=== PATIENT | female | born 1995 | race Hispanic/Latino ===

== ENCOUNTER 2017-04-12 18:20 | Emergency (ER) | payer SELFPAY, OTHER ==
[2017-04-12] MEDS ORDERED: Ibuprofen 800 MG TAB ONE (19:01)
== END 2017-04-12 19:30 | disposition home or self-care (01) ==
LOC: ERS 18:20
DX: J11.1 Influenza due to unidentified influenza virus with other respiratory manifestations (principal); K21.9 Gastro-esophageal reflux disease without esophagitis
CPT/HCPCS: 99284

== ENCOUNTER 2017-05-23 18:44 | Emergency (ER) | payer SELFPAY ==
[2017-05-23] MEDS ORDERED: Ibuprofen 200 MG TAB ONE (20:02)
[2017-05-23] MEDS ORDERED: Bicillin LA 1.2 MILLION UNITS/2 ML SYRINGE ONE (20:02)
[2017-05-23] MEDS ORDERED: Dexamethasone 4 mg/ml Vial ONE (20:02)
== END 2017-05-23 20:22 | disposition home or self-care (01) ==
LOC: ERS 18:44
DX: J02.0 Streptococcal pharyngitis (principal); K21.9 Gastro-esophageal reflux disease without esophagitis
CPT/HCPCS: 87804; 96372; J0561; J1100

== ENCOUNTER 2018-06-13 10:33 | Emergency (ER) | payer SELFPAY ==
[2018-06-13 11:05] LABS: #Eosinphils 0.2 thou/uL (0.0-0.7); #Lymphocytes 2.4 thou/uL (1.20-3.40); #Monocytes 0.8 thou/uL (0.11-0.59); %Basophils 0.5 % (0.0-1.0); %Eosinophils 2.3 % (0.0-10.0); %Lymphocytes 25.6 % (21.0-51.0); %Monocytes 8.4 % (0.0-10.0); %Neutrophils 63.3 % (42.0-75.0); Hemoglobin 13.3 g/dL (12.0-16.0); Mean Corpuscular HGB CONC 32.1 g/dL (32.0-36.0); Mean Corpuscular Hemoglobin 29.1 pg (27.0-31.0); Mean Corpuscular Volume 90.6 fL (78.0-98.0); Mean Platelet Volume 8.9 fL (7.4-10.4); Platelet Count 209 thou/uL (130-400); RBC Distribution Width 12.5 % (11.5-14.5); Red Blood Cell (RBC) Count 4.55 mill/uL (4.20-5.40); White Blood Cell (WBC) Count 9.5 thou/uL (4.8-10.8)
[2018-06-13 11:34] LABS: Bilirubin Negative (Negative); Blood, Urine Negative (Negative); Clarity CLEAR (Clear); Glucose, Urine (Dipstick) >=1000 mg/dL (Negative); Leukocyte Negative (Negative); Nitrite Negative (Negative); Protein, Urine (Dipstick) Negative (Neg-Trace); Specific Gravity, Urine 1.032 (1.002-1.036); Urobilinogen 0.2 mg/dL (0.2-1.0); pH, Urine 6.5 (5.0-9.0)
[2018-06-13 11:35] LABS: ALT (SGPT) 10 U/L (8-55); AST (SGOT) 10 U/L (5-34); Albumin 4.2 g/dL (3.5-5.0); Alkaline Phosphatase 109 U/L (40-150); Anion Gap 11 mmol/L (10-20); BUN (Urea Nitrogen) 10 mg/dL (7.0-18.7); Bilirubin, Total 0.2 mg/dL (0.2-1.2); Calc. Creatinine Clearance 0 mL/min (70-130); Calcium 9.5 mg/dL (7.8-10.44); Carbon Dioxide 22 mmol/L (22-29); Chloride 106 mmol/L (98-107); Estimated GFR-MDRD Greater than 90; Globulin 3.4 g/dL (2.4-3.5); Glucose 208 mg/dL (70-105); Potassium 3.9 mmol/L (3.5-5.1); Protein, Total 7.6 g/dL (6.0-8.3); Sodium 135 mmol/L (136-145)
[2018-06-13 11:36] LABS: Pregnancy Test - Urine (BHCG) Negative (Negative); Pregu Control Background? CLEAR/WHITE (CLR/WHITE); Pregu Control Bar Appear? YES (CONTROL BAR); Specific Gravity 1.032 (1.002-1.036)
== END 2018-06-13 12:55 | disposition home or self-care (01) ==
LOC: ERS 10:33
DX: R10.30 Lower abdominal pain, unspecified (principal); F17.290 Nicotine dependence, other tobacco product, uncomplicated
CPT/HCPCS: 36415; 80053; 81003; 81025; 85025; 99284

== ENCOUNTER 2018-10-02 23:53 | Emergency (ER) | payer SELFPAY | END 2018-10-03 00:51 | disposition home or self-care (01) | LOC: ERS 23:53 | DX: B37.3 Candidiasis of vulva and vagina (principal); F41.9 Anxiety disorder, unspecified; E11.9 Type 2 diabetes mellitus without complications; F17.210 Nicotine dependence, cigarettes, uncomplicated; Z79.84 Long term (current) use of oral hypoglycemic drugs | CPT/HCPCS: 99282 ==

== ENCOUNTER 2018-10-06 02:57 | Inpatient (IN) | payer SELFPAY ==
[2018-10-06] MEDS ORDERED: Lidocaine 1% w/Epinephrine 1:100K 20 ML VIAL ONE (03:31)
[2018-10-06] MEDS ORDERED: HYDROcodone/Acetaminophen 7.5/325 mg Tablet ONE (03:33)
[2018-10-06 03:38] LABS: #Basophils 0.1 thou/uL (0.0-0.2); #Eosinphils 0.2 thou/uL (0.0-0.7); #Lymphocytes 1.6 thou/uL (1.20-3.40); #Neutrophils 8.6 thou/uL (1.40-6.50); %Basophils 0.5 % (0.0-1.0); %Eosinophils 1.6 % (0.0-10.0); %Monocytes 8.5 % (0.0-10.0); %Neutrophils 75.5 % (42.0-75.0); Hemoglobin 13.9 g/dL (12.0-16.0); Mean Corpuscular HGB CONC 32.9 g/dL (32.0-36.0); Mean Corpuscular Hemoglobin 30.8 pg (27.0-31.0); Mean Corpuscular Volume 93.4 fL (78.0-98.0); Mean Platelet Volume 10.2 fL (7.4-10.4); Platelet Count 173 thou/uL (130-400); RBC Distribution Width 12.6 % (11.5-14.5); Red Blood Cell (RBC) Count 4.52 mill/uL (4.20-5.40); White Blood Cell (WBC) Count 11.4 thou/uL (4.8-10.8)
[2018-10-06 04:01] LABS: ALT (SGPT) 9 U/L (8-55); AST (SGOT) 6 U/L (5-34); Albumin 4.2 g/dL (3.5-5.0); Alkaline Phosphatase 141 U/L (40-150); Anion Gap 22 mmol/L (10-20); BUN (Urea Nitrogen) 7 mg/dL (7.0-18.7); Bilirubin, Total 0.4 mg/dL (0.2-1.2); Calc. Creatinine Clearance 0 mL/min (70-130); Calcium 9.7 mg/dL (7.8-10.44); Carbon Dioxide 14 mmol/L (22-29); Chloride 98 mmol/L (98-107); Estimated GFR-MDRD 56; Globulin 3.2 g/dL (2.4-3.5); Potassium 4.1 mmol/L (3.5-5.1); Protein, Total 7.4 g/dL (6.0-8.3); Sodium 130 mmol/L (136-145)
[2018-10-06 04:04] LABS: Glucose 604 mg/dL (70-105)
[2018-10-06] MEDS ORDERED: Insulin Regular 300 UNITS/3 ML VIAL ONE (04:22)
[2018-10-06 04:42] LABS: Bilirubin Negative (Negative); Blood, Urine Negative (Negative); Clarity CLEAR (Clear); Glucose, Urine (Dipstick) >=1000 mg/dL (Negative); Leukocyte Negative (Negative); Nitrite Negative (Negative); Protein, Urine (Dipstick) Negative (Neg-Trace); Specific Gravity, Urine 1.038 (1.002-1.036); Urobilinogen 0.2 mg/dL (0.2-1.0)
[2018-10-06] MEDS ORDERED: Potassium Chloride 20 MEQ TAB ONE (04:50)
[2018-10-06] MEDS ORDERED: Clindamycin/D5W 600 mg/50 ml Premix Bag ONE (04:51)
[2018-10-06 04:58] LABS: RBC/HPF 0-3 HPF (0-3); WBC/HPF 0-3 HPF (0-3)
[2018-10-06 04:59] LABS: Bacteria/HPF None Seen HPF (None Seen); Squamous Epithelial None Seen HPF (0-3); Trichomonas/HPF None Seen HPF (None Seen); Yeast-All Forms Rare HPF (None Seen)
[2018-10-06] MEDS ORDERED: Acetaminophen 325 MG/10.15 ML UDCUP PO PRN (05:49)
[2018-10-06] MEDS ORDERED: CCU Electrolyte Replacement 1 EACH IVPB ONE ×2 (05:49→07:37)
[2018-10-06] MEDS ORDERED: Bisacodyl 5 MG TAB PO PRN (05:49)
[2018-10-06] MEDS ORDERED: PHOS-NAK 1 PKT PACK PO PRN ×4 (06:01→08:16)
[2018-10-06] MEDS ORDERED: Potassium Chloride 40 MEQ in Sodium Chloride 0.9% 250 ML 250 ML IVPB PRN ×2 (06:01→08:16)
[2018-10-06] MEDS ORDERED: Potassium Phosphate 15 MMOL in Sodium Chloride 0.9% 250 ML 250 ML IV PRN ×2 (06:01→08:16)
[2018-10-06] MEDS ORDERED: Magnesium Oxide 400 MG TAB PO PRN ×4 (06:01→08:16)
[2018-10-06] MEDS ORDERED: Magnesium 2 GM/50 ML 2 GM in Premix Bag 1 BAG IVPB PRN ×2 (06:01→08:16)
[2018-10-06] MEDS ORDERED: Potassium Phosphate 12 MMOL in Sodium Chloride 0.9% 250 ML 250 ML IV PRN ×2 (06:01→08:16)
[2018-10-06] MEDS ORDERED: Potassium Chloride 40 MEQ in Premix Bag 1 BAG IVPB PRN ×2 (06:01→08:16)
[2018-10-06] MEDS ORDERED: Potassium Chloride 20 MEQ TAB PO PRN ×2 (06:01→08:16)
[2018-10-06] MEDS ORDERED: Potassium Phosphate 9 MMOL in Sodium Chloride 0.9% 100 ML IVPB PRN ×2 (06:01→08:16)
[2018-10-06] MEDS ORDERED: CCU ELECTROLYTE REPLACEMENT PROTOCOL FS PRN ×2 (06:01→08:16)
[2018-10-06] MEDS ORDERED: Insulin Regular 100 units/100 ml in NS IVPB SCH (06:15)
--- NOTE | 2018-10-06 06:43 | HP ---
CHIEF COMPLAINT: Left buttock pain. HISTORY OF PRESENT ILLNESS: The patient is a very pleasant 23-year-old female who presents to the hospital with complaints of left buttock pain x2 days. The patient states that she was recently seen in the ER on Tuesday and was found to have a small abscess around her left buttock area. However, at that time, it was not drainable and the patient was sent home with only Diflucan for her vaginal Aria. The patient stated that as the days progressed, the patient's pain to her left buttock has gotten worse to the point that she had significant amount of pain today which made her come into the ER. The patient states that she was recently diagnosed with diabetes in July and has been on metformin and has been taking her medications. She does not check her blood sugars at home. According to her, she has lost a significant amount of weight and also she is very conscious about her diet given her recent diagnosis of diabetes. The patient denies any fevers or chills at home. PAST MEDICAL HISTORY: History of new onset diabetes. She also has psoriasis. PAST SURGICAL HISTORY: She denies. FAMILY HISTORY: History of heart disease, cancers, and stroke. SOCIAL HISTORY: She denies any alcohol use, drug use, or smoking history. She is a full code. Lives alone. REVIEW OF SYSTEMS: All negative except for the ones mentioned above in the HPI. ALLERGIES: SHE HAS NO KNOWN ALLERGIES. MEDICATIONS: She takes metformin. She does not recall the dose. PHYSICAL EXAMINATION: VITAL SIGNS: As of the following; temperature of 98.8, heart rate of 90, blood pressure of 140/60, 98% on room air. GENERAL: She is awake, alert, and oriented x3. Does not appear in distress. HEENT: Normocephalic, atraumatic. No lymphadenopathy noted. Mucous membranes are very dry. Pupils are equal and reactive to light. CV: S1 and S2 present. No murmurs, rubs, or gallops. LUNGS: Clear to auscultation. No rhonchi or wheezes noted. ABDOMEN: Soft, obese. Bowel sounds are present x2. EXTREMITIES: No edema. Pedal pulses are present x2. NEUROVASCULAR: No focal deficits noted. SKIN: She has a small area of abscess on her left butt cheek which underwent drainage and she has does have a little packing inserted. LABORATORY RESULTS: As of the following; WBCs of 11.4, hemoglobin of 13.9, hematocrit of 42.2, platelets of 173. Chemistry; sodium of 130, potassium of 4.1, BUN of 7, creatinine of 121, anion gap of 22, and bicarb of 14. Her glucose was 604. Her beta-hydroxybutyric acid was 5.54. ASSESSMENT AND PLAN: The patient is a very pleasant 23-year-old female who presents to the hospital with complaints of left buttock pain. 1. Diabetic ketoacidosis. The patient has been given 8 units of regular insulin and she will be started on an insulin drip per protocol. She will be transferred into the [facility]. She has got a total of 3 L of normal saline. We will start her on a drip based on the diabetic ketoacidosis protocol. We will also check a hemoglobin A1c on this patient. 2. Buttocks abscess, status post drainage, cultures have been sent. I will start the patient on clindamycin and continue to monitor. 3. Deep vein thrombosis prophylaxis. We will put the patient on subcu heparin. Job ID: [id number]
[2018-10-06] MEDS ORDERED: Dextrose 5 %-0.45 % NaCl 1,000 ML IV PRN (07:37)
[2018-10-06] MEDS ORDERED: D5 1/2 NS w/20 mEq KCL 1,000 ML IV PRN (07:37)
[2018-10-06] MEDS ORDERED: NS 0.9% w/ 20 MEQ KCL 1,000 ML IV PRN (07:37)
[2018-10-06] MEDS ORDERED: Sodium Chloride 0.9% 1,000 ML IV PRN ×4 (07:37)
[2018-10-06] MEDS ORDERED: HUMULIN R 100 UNITS in Sodium Chloride 0.9% 100 ML IVPB SCH (07:45)
[2018-10-06] MEDS: Enoxaparin Sodium 40 MG/0.4 ML SYRINGE SC SCH (08:35)
[2018-10-06] MEDS: Famotidine/PF 20 mg/2ml Vial SLOW IVP SCH ×2 (08:36→21:45)
[2018-10-06] MEDS: NS 0.9% w/ 20 MEQ KCL 1,000 ML IV PRN ×2 (08:36→10:47)
[2018-10-06 09:53] LABS: Anion Gap 15 mmol/L (10-20); BUN (Urea Nitrogen) 5 mg/dL (7.0-18.7); Calc. Creatinine Clearance 158 mL/min (70-130); Calcium 8.2 mg/dL (7.8-10.44); Carbon Dioxide 17 mmol/L (22-29); Chloride 108 mmol/L (98-107); Estimated GFR-MDRD Greater than 90; Glucose 231 mg/dL (70-105); Potassium 3.8 mmol/L (3.5-5.1); Sodium 136 mmol/L (136-145)
--- NOTE | 2018-10-06 10:21 | CON ---
DATE OF CONSULTATION: HISTORY OF PRESENT ILLNESS: A 23-year-old obese female, presented with swelling in the left buttock area, had an abscess, two weeks, recently diagnosed diabetes. Her sugars were markedly elevated. She does not smoke or drink. 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. Denies any nausea or vomiting. PAST MEDICAL HISTORY: Diabetes, psoriasis. PREVIOUS SURGERIES: None. CHRONIC MEDICATION: Metformin 500 mg two a day. ALLERGIES: NONE. SOCIAL HISTORY: Unremarkable. FAMILY HISTORY: Unremarkable. REVIEW OF SYSTEMS: Ten-point negative. PHYSICAL EXAMINATION: GENERAL: Awake, alert, and responsive. VITAL SIGNS: Blood pressure is 92/67, temperature 97, pulse 81, saturations are 98% on room, respirations 20. CHEST: No wheezing or crackles. CARDIAC: Normal S1 and S2. No gallops. ABDOMEN: No masses. LABORATORY DATA: White count 11,000. Lytes are normal. Glucose is elevated. Her urine is unremarkable. H and H are 13 and 42, platelet count 173. Sodium was 130, creatinine 1.2, bicarbonate 14, elevated anion gap 22. IMPRESSION: Diabetic ketoacidosis, buttock abscess. She was started on clindamycin IV fluids, insulin drip. She got serial lab ordered. At this stage, nothing additional to offer. She probably needs to be started on long acting insulin. We will follow on MICU. Job ID: [id number]
[2018-10-06] MEDS ORDERED: Dextrose 50% Abboject 50 ML SYRINGE IVP PRN (12:18)
[2018-10-06] MEDS ORDERED: Dextrose 5% in Water 1,000 ML IV PRN (12:18)
[2018-10-06 12:25] LABS: Anion Gap 14 mmol/L (10-20); BUN (Urea Nitrogen) 4 mg/dL (7.0-18.7); Calc. Creatinine Clearance 194 mL/min (70-130); Calcium 8.2 mg/dL (7.8-10.44); Carbon Dioxide 15 mmol/L (22-29); Chloride 110 mmol/L (98-107); Estimated GFR-MDRD Greater than 90; Glucose 139 mg/dL (70-105); Potassium 3.9 mmol/L (3.5-5.1); Sodium 135 mmol/L (136-145)
[2018-10-06] MEDS ORDERED: Insulin Glargine 10 UNITS in Pre-Filled Syringe 1 EACH SC SCH (12:30)
[2018-10-06] MEDS: Clindamycin/D5W 600 MG in Premix Bag 1 BAG IVPB SCH ×2 (14:02→22:12)
[2018-10-06] MEDS: Nystatin Cream 15 GM TUBE TOP SCH ×2 (15:32→22:12)
[2018-10-06 16:16] LABS: Anion Gap 17 mmol/L (10-20); BUN (Urea Nitrogen) Less than 4 mg/dL (7.0-18.7); Calc. Creatinine Clearance 177 mL/min (70-130); Calcium 8.7 mg/dL (7.8-10.44); Carbon Dioxide 13 mmol/L (22-29); Chloride 106 mmol/L (98-107); Estimated GFR-MDRD Greater than 90; Glucose 213 mg/dL (70-105); Potassium 4.1 mmol/L (3.5-5.1); Sodium 132 mmol/L (136-145)
[2018-10-06] MEDS: metFORMIN 500 MG TAB PO SCH (16:53)
[2018-10-06] MEDS: HumaLOG 300 UNITS/3 ML VIAL SC PRN ×2 (16:53→21:47)
[2018-10-07] MEDS: traMADol HCl 50 MG TAB PO PRN ×3 (04:17→20:04)
[2018-10-07] MEDS: Clindamycin/D5W 600 MG in Premix Bag 1 BAG IVPB SCH ×3 (05:58→22:32)
[2018-10-07] MEDS: Nystatin Cream 15 GM TUBE TOP SCH ×3 (05:59→22:38)
[2018-10-07 06:11] LABS: ALT (SGPT) 9 U/L (8-55); AST (SGOT) 9 U/L (5-34); Albumin 3.6 g/dL (3.5-5.0); Alkaline Phosphatase 91 U/L (40-150); Anion Gap 17 mmol/L (10-20); BUN (Urea Nitrogen) Less than 4 mg/dL (7.0-18.7); Bilirubin, Total 0.4 mg/dL (0.2-1.2); Calc. Creatinine Clearance 168 mL/min (70-130); Calcium 9.1 mg/dL (7.8-10.44); Carbon Dioxide 12 mmol/L (22-29); Chloride 105 mmol/L (98-107); Estimated GFR-MDRD Greater than 90; Globulin 2.9 g/dL (2.4-3.5); Glucose 220 mg/dL (70-105); Protein, Total 6.5 g/dL (6.0-8.3); Sodium 130 mmol/L (136-145)
[2018-10-07] MEDS: HumaLOG 300 UNITS/3 ML VIAL SC PRN ×4 (06:28→20:33)
[2018-10-07 06:33] LABS: Band 10 % (5-11); Hemoglobin 12.9 g/dL (12.0-16.0); Lymphocytes 21 % (21-51); MDiff Complete? YES; Mean Corpuscular HGB CONC 32.7 g/dL (32.0-36.0); Mean Corpuscular Hemoglobin 30.3 pg (27.0-31.0); Mean Corpuscular Volume 92.9 fL (78.0-98.0); Mean Platelet Volume 10.3 fL (7.4-10.4); Monocytes 7 % (0-10); Neutrophil 62 % (42-75); Platelet Count 142 thou/uL (130-400); RBC Distribution Width 12.5 % (11.5-14.5); Red Blood Cell (RBC) Count 4.27 mill/uL (4.20-5.40); White Blood Cell (WBC) Count 7.9 thou/uL (4.8-10.8)
[2018-10-07] MEDS: metFORMIN 500 MG TAB PO SCH ×2 (08:23→16:31)
[2018-10-07] MEDS: Fluconazole 100 MG TAB PO SCH (08:24)
[2018-10-07] MEDS: Enoxaparin Sodium 40 MG/0.4 ML SYRINGE SC SCH (08:24)
[2018-10-07] MEDS: Famotidine/PF 20 mg/2ml Vial SLOW IVP SCH ×2 (08:24→20:28)
--- NOTE | 2018-10-07 11:12 | PRG ---
DATE OF SERVICE: 10/07/2018 SUBJECTIVE: Alert, awake, responsive. Bicarb is still 12, anion gap is still 17. Lytes are normal. Blood sugar is 194. She was started yesterday on home medication, which is Glucophage 500 twice a day. She is walking in the halls without any distress. She is getting antibiotics. OBJECTIVE: VITAL SIGNS: Temperature 97. Blood pressure 116/61, pulse 80, respiratory rate 18. CHEST: No wheezing or crackles. CARDIAC: Normal S1, S2. ABDOMEN: No masses. ASSESSMENT AND PLAN: Uncontrolled diabetes, gluteal abscess, streptococcus, still some metabolic acidosis. Needs aggressive hydration and supportive care. Disposition as per primary care physician. Pulmonary will follow at a distance. Job ID: [id number]
[2018-10-07] MEDS ORDERED: Sodium Chloride 0.9% 1,000 ML IV SCH (11:45)
[2018-10-07] MEDS: Sodium Bicarbonate 75 MEQ in Dextrose 5% in Water 1,000 ML IV SCH ×2 (13:23→20:20)
[2018-10-07] MEDS ORDERED: Amoxicillin/Potassium Clav 875 MG TAB PO SCH (19:00)
--- NOTE | 2018-10-07 19:56 | PDOC.PN ---
- Subjective Encounter Start Date: 10/07/18 Encounter Start Time: 19:55 Pt seen for followup re: metabolic acidosis. Feels well, no complaints. - Objective Resuscitation Status - Order Detail: 10/06/18 05:52 Resuscitation Status Routine Resuscitation Status: FULL: Full Resuscitation MAR Reviewed: Yes Vital Signs & Weight: Vital Signs (12 hours) Temp 10/07/18 19:28 97.8 F 10/07/18 14:53 97.3 F L 10/07/18 10:27 97.3 F L Weight Weight 188 lb 12.8 oz Most Recent Monitor Data Heart Rate from ECG 70 NIBP 98/55 NIBP BP-Mean 69 Respiration from ECG 12 SpO2 99 I&O: 10/06/18 10/07/18 10/08/18 06:59 06:59 06:59 Intake Total 4494.6 1362 Balance 4494.6 1362 Result Diagrams: 10/07/18 05:25 10/07/18 05:25 Additional Labs: Accuchecks 10/07/18 10/07/18 10/07/18 16:07 10:19 05:29 POC Glucose 289 H 269 H 194 H EKG Reviewed by me: Yes Phys Exam - Physical Examination Constitutional: NAD HEENT: moist MMs Neck: supple Respiratory: clear to auscultation bilateral Cardiovascular: RRR Gastrointestinal: soft Neurological: moves all 4 limbs Psychiatric: normal affect Dx/Plan (1) Metabolic acidosis Code(s): E87.2 - ACIDOSIS Status: Acute Comment: pt had bicarbonate drip today, at time of discharge can be discharged on sodium bicarbonate 650 mg BID and follow up with Dr. Bruce in office (2) Abscess of buttock Code(s): L02.31 - CUTANEOUS ABSCESS OF BUTTOCK Status: Acute Comment: continue clindamycin. Wound care to see pt tomorrow so they can make recommendations prior to discharge (3) DKA (diabetic ketoacidoses) Code(s): E11.10 - TYPE 2 DIABETES MELLITUS WITH KETOACIDOSIS WITHOUT COMA Status: Chronic Comment: HbA1c 16. Pt will need insulin, to follow up with PCP at 9.30 AM on Tuesday. - Plan * . Review of Systems - Review of Systems Cardiovascular: negative: chest pain, palpitations, orthopnea, paroxysmal nocturnal dyspnea, edema, light headedness Gastrointestinal: negative: Nausea, Vomiting, Abdominal Pain, Diarrhea, Constipation, Melena, Hematochezia - Medications/Allergies Allergies/Adverse Reactions: Allergies Allergy/AdvReac Type Severity Reaction Status Date / Time No Known Drug Allergies Allergy Verified 10/06/18 06:48 Medications: Current Medications Acetaminophen (Tylenol Elixir) 650 mg PO Q6H PRN PRN Reason: Fever > 101 or Mild Pain Amoxicillin/Clavulanate Potassium (Augmentin) 875 mg PO NOW [facility] Stop: 10/07/18 21:00 Last Admin: 10/07/18 19:37 Dose: 875 mg Bisacodyl (Dulcolax) 10 mg PO DAILYPRN PRN PRN Reason: Constipation Dextrose/Water (Dextrose 50%) 25 gm IVP PRN PRN PRN Reason: HYPOGLYCEMIA PROTOCOL Enoxaparin Sodium (Lovenox) 40 mg SC 0900 [facility] Last Admin: 10/07/18 08:24 Dose: 40 mg Famotidine (Pepcid) 20 mg SLOW IVP Q12HR [facility] Last Admin: 10/07/18 08:24 Dose: 20 mg Fluconazole (Diflucan) 200 mg PO DAILY [facility] Last Admin: 10/07/18 08:24 Dose: 200 mg Glucagon (Glucagon) 1 mg IM PRN PRN PRN Reason: HYPOGLYCEMIA PROTOCOL Clindamycin Phosphate/Dextrose (600 mg/ Device) 50 mls @ 100 mls/hr IVPB Q8HR [facility] Last Admin: 10/07/18 13:24 Dose: 50 mls Dextrose/Sodium Chloride (D5 1/2 Ns) 1,000 mls @ 250 mls/hr IV .Q4H PRN; Protocol PRN Reason: Step 4 of DKA Protocol Potassium Chloride/Dextrose/Sod Cl (D5 1/2 Ns W/20 Meq Kcl) 1,000 mls @ 250 mls /hr IV .Q4H PRN; Protocol PRN Reason: Step 4 of DKA Protocol Sodium Chloride (Normal Saline 0.9%) 1,000 mls @ 500 mls/hr IV .Q2H PRN; Protocol PRN Reason: Step 1 of DKA Protocol Sodium Chloride (Normal Saline 0.9%) 1,000 mls @ 1,000 mls/hr IV .Q1H PRN; Protocol PRN Reason: Step 1 of DKA Protocol Sodium Chloride (Normal Saline 0.9%) 1,000 mls @ 250 mls/hr IV .Q4H PRN; Protocol PRN Reason: SEE STEP 3 OF DKA PROTOCOL Sodium Chloride (Normal Saline 0.9%) 1,000 mls @ 500 mls/hr IV .Q2H PRN; Protocol PRN Reason: Step 2 of DKA Protocol Potassium Chloride/Sodium Chloride (Ns 0.9% W/ 20 Meq Kcl) 1,000 mls @ 500 mls/ hr IV .Q2H PRN; Protocol PRN Reason: Step 2 of DKA Protocol Last Admin: 10/06/18 10:47 Dose: 1,000 mls Potassium Chloride/Sodium Chloride (Ns 0.9% W/ 20 Meq Kcl) 1,000 mls @ 250 mls/ hr IV .Q4H PRN; Protocol PRN Reason: SEE STEP 3 OF DKA PROTOCOL Potassium Chloride 40 meq/ (Sodium Chloride) 270 mls @ 135 mls/hr IVPB ASDIR PRN PRN Reason: FOR SERUM K+ 2.5 - 3.5 Potassium Chloride 40 meq/ (Device) 100 mls @ 50 mls/hr IVPB ASDIR PRN PRN Reason: FOR SERUM K+ 2.5 - 3.5 Magnesium Sulfate 1 gm/ Sodium (Chloride) 102 mls @ 102 mls/hr IV PRN PRN PRN Reason: MAG LEVEL 1.4 - 2.0 Magnesium Sulfate 2 gm/ Device 50 mls @ 50 mls/hr IVPB ASDIR PRN PRN Reason: MAGNESIUM < 1.4 Potassium Phosphate 9 mmol/ (Sodium Chloride) 103 mls @ 25.75 mls/hr IVPB ASDIR PRN PRN Reason: Phosphate 1.0-1.8 Potassium Phosphate 12 mmol/ (Sodium Chloride) 254 mls @ 63.5 mls/hr IV ASDIR PRN PRN Reason: Serum phosphate 0.5-0.9 Potassium Phosphate 15 mmol/ (Sodium Chloride) 255 mls @ 63.75 mls/hr IV ASDIR PRN PRN Reason: Serum Phos < 0.5 Dextrose/Water (D5w) 1,000 mls @ 0 mls/hr IV INF PRN PRN Reason: HYPOGLYCEMIA PROTOCOL Sodium Bicarbonate 75 meq/ (Dextrose/Water) 1,075 mls @ 125 mls/hr IV .Q8H36M [facility] Last Admin: 10/07/18 13:23 Dose: 1,075 mls Insulin Human Lispro (Humalog) 0 units SC .MILD SLIDING SCALE PRN; Protocol PRN Reason: MILD SLIDING SCALE Last Admin: 10/07/18 16:31 Dose: 4 unit Magnesium Oxide (Magnesium Oxide) 400 mg PO BIDPRN PRN PRN Reason: FOR SERUM MAG 1.4 - 2.0 Magnesium Oxide (Magnesium Oxide) 800 mg PO PRN PRN PRN Reason: FOR SERUM MAG < 1.4 Metformin HCl (Glucophage) 500 mg PO BID-[facility] Last Admin: 10/07/18 16:31 Dose: 500 mg Miscellaneous Medication (Phos-Nak) 1 pkt PO TIDPRN PRN PRN Reason: FOR PHOS LEVEL 1.0 - 1.8 Miscellaneous Medication (Phos-Nak) 2 pkt PO TIDPRN PRN PRN Reason: FOR PHOS LEVEL 0.5 - 1.0 Ccu Electrolyte (Replacement Protocol) 0 each FS PRN PRN PRN Reason: FOR ELECTROLYTE REPLACEMENT Nystatin (Mycostatin Cream) 0 gm TOP Q8HR [facility] Last Admin: 10/07/18 13:24 Dose: 1 applic Potassium Chloride (K-Dur) 40 meq PO ASDIR PRN PRN Reason: FOR SERUM K+ 2.5 - 3.5 Potassium Chloride (Klor-Con) 40 meq PER TUBE ASDIR PRN PRN Reason: FOR SERUM K+ 2.5-3.5 Tramadol HCl (Ultram) 50 mg PO Q4H PRN PRN Reason: Moderate Pain (4-6) Last Admin: 10/07/18 11:54 Dose: 50 mg
--- NOTE | 2018-10-07 20:01 | CON ---
DATE OF CONSULTATION: 10/07/2018 CONSULTING PHYSICIAN: Dr. Aquilino Aguilera. REASON FOR CONSULTATION: Metabolic acidosis. REASON FOR ADMISSION: Back pain. HISTORY OF PRESENT ILLNESS: This is a 23-year-old female with history of diabetes and psoriasis, came to the hospital with above complaints, was found to be in DKA and being treated for her acidosis, but it is persistent despite the gap being closed, and Nephrology was consulted. The patient any nausea or vomiting. No chest pain or palpitation. No fever or chills. PAST MEDICAL HISTORY: Positive for diabetes and psoriasis. PAST SURGICAL HISTORY: None. HOME MEDICATIONS: Metformin and fluconazole. ALLERGIES: NO KNOWN DRUG ALLERGIES. SOCIAL HISTORY: No smoking, alcohol, or illicit drugs. FAMILY HISTORY: No history of kidney disease. REVIEW OF SYSTEMS: CONSTITUTIONAL: Negative for weight loss or gain, ability to conduct usual activities. SKIN: Negative for rash, itching. EYES: Negative for double vision, pain. ENT/MOUTH: Negative for nose bleeding, neck stiffness, pain, tenderness. CARDIOVASCULAR: Negative for palpitations, dyspnea on exertion, orthopnea. RESPIRATORY: Negative for shortness of breath, wheezing, cough, hemoptysis, fever or night sweats. GASTROINTESTINAL: Negative for poor appetite, abdominal pain, heartburn, nausea, vomiting, constipation, or diarrhea. GENITOURINARY: Negative for urgency, frequency, dysuria, nocturia. MUSCULOSKELETAL: Negative for pain, swelling. NEUROLOGIC/PSYCHIATRIC: Negative for anxiety, depression. ALLERGY/IMMUNOLOGIC: Negative for skin rash, bleeding tendency. PHYSICAL EXAMINATION: GENERAL: This is well-built female, in no apparent distress. VITAL SIGNS: Temperature 97.3, pulse , respiratory rate 18, blood pressure . HEENT: Atraumatic, normocephalic. Oral mucosa is moist. NECK: Supple. CV: S1, S2 heard. Rate and rhythm are regular. RESPIRATORY: Clear. GASTROINTESTINAL: Abdomen is soft. MUSCULOSKELETAL: 1+ edema. DERMATOLOGIC: No skin rash. NEUROLOGIC: Alert and awake. PSYCHIATRIC: Normal mood and affect. LABORATORY DATA: Hemoglobin is 12.9. Potassium 4.0, BUN is less than 4, creatinine is 0.7. ASSESSMENT AND PLAN: 1. Metabolic acidosis. We will give her bicarb drip for 1 L before discharge. The patient wants to go home today. The patient was advised to follow up with the clinic. Okay with sodium bicarb 650 mg 2 to 3 p.o. daily with meals as tolerated. 2. Hyponatremia, stable. 3. Diabetic ketoacidosis, better. 4. Diabetes mellitus, poorly controlled with A1c of 16. We will continue close monitoring as outpatient if the patient wants to go home today. We will follow. Thank you for the consult. Job ID: [id number]
[2018-10-08] MEDS: Sodium Bicarbonate 75 MEQ in Dextrose 5% in Water 1,000 ML IV SCH (00:59)
[2018-10-08 05:10] LABS: ALT (SGPT) 8 U/L (8-55); AST (SGOT) 6 U/L (5-34); Albumin 3.5 g/dL (3.5-5.0); Alkaline Phosphatase 85 U/L (40-150); Anion Gap 16 mmol/L (10-20); BUN (Urea Nitrogen) 4 mg/dL (7.0-18.7); Bilirubin, Total 0.2 mg/dL (0.2-1.2); Calc. Creatinine Clearance 147 mL/min (70-130); Carbon Dioxide 22 mmol/L (22-29); Chloride 102 mmol/L (98-107); Estimated GFR-MDRD 88; Globulin 2.6 g/dL (2.4-3.5); Glucose 304 mg/dL (70-105); Potassium 3.9 mmol/L (3.5-5.1); Protein, Total 6.1 g/dL (6.0-8.3); Sodium 136 mmol/L (136-145)
[2018-10-08 05:33] LABS: Band 8 % (5-11); Eosinophils 1 % (0-10); Hemoglobin 12.8 g/dL (12.0-16.0); Lymphocytes 36 % (21-51); MDiff Complete? YES; Mean Corpuscular HGB CONC 33.2 g/dL (32.0-36.0); Mean Corpuscular Hemoglobin 31.3 pg (27.0-31.0); Mean Corpuscular Volume 94.1 fL (78.0-98.0); Mean Platelet Volume 10.3 fL (7.4-10.4); Microcytosis SLIGHT = 6-15 cells (100X) (0-5/hpf); Monocytes 19 % (0-10); Neutrophil 36 % (42-75); Platelet Count 142 thou/uL (130-400); Platelet Morphology Comment Appears Adequate; RBC Distribution Width 12.8 % (11.5-14.5); Red Blood Cell (RBC) Count 4.08 mill/uL (4.20-5.40); White Blood Cell (WBC) Count 5.8 thou/uL (4.8-10.8)
[2018-10-08] MEDS: Clindamycin/D5W 600 MG in Premix Bag 1 BAG IVPB SCH ×4 (05:44→21:06)
[2018-10-08] MEDS: HumaLOG 300 UNITS/3 ML VIAL SC PRN ×2 (05:58→11:04)
[2018-10-08] MEDS: traMADol HCl 50 MG TAB PO PRN ×3 (06:02→18:58)
[2018-10-08] MEDS: Nystatin Cream 15 GM TUBE TOP SCH ×3 (06:10→21:07)
[2018-10-08] MEDS: Fluconazole 100 MG TAB PO SCH (08:49)
[2018-10-08] MEDS: Famotidine/PF 20 mg/2ml Vial SLOW IVP SCH ×2 (08:49→20:32)
[2018-10-08] MEDS: metFORMIN 500 MG TAB PO SCH ×2 (08:49→16:28)
[2018-10-08] MEDS: Enoxaparin Sodium 40 MG/0.4 ML SYRINGE SC SCH (08:49)
[2018-10-08] MEDS ORDERED: Morphine 4 MG/ML VIAL ONE (10:11)
[2018-10-08] MEDS ORDERED: Morphine 2 MG/ML SYRINGE SLOW IVP SCH (10:15)
--- NOTE | 2018-10-08 14:44 | PDOC.PN ---
- Subjective Encounter Start Date: 10/08/18 Encounter Start Time: 10:30 Subjective: pt up in bed complains of pain to her right labial area - Objective Resuscitation Status - Order Detail: 10/06/18 05:52 Resuscitation Status Routine Resuscitation Status: FULL: Full Resuscitation Vital Signs & Weight: Vital Signs (12 hours) Temp Pulse Ox 10/08/18 11:02 97.0 F L 10/08/18 07:41 99 10/08/18 07:02 97.8 F 10/08/18 03:41 98.0 F Weight Weight 189 lb 4.8 oz Most Recent Monitor Data Heart Rate from ECG 78 NIBP 111/76 NIBP BP-Mean 87 Respiration from ECG 13 SpO2 99 I&O: 10/07/18 10/08/18 10/09/18 06:59 06:59 06:59 Intake Total 4494.6 2862 Balance 4494.6 2862 Result Diagrams: 10/08/18 04:06 10/08/18 04:06 Additional Labs: Accuchecks 10/08/18 10/08/18 10/07/18 10:40 05:35 19:46 POC Glucose 270 H 261 H 301 H 10/07/18 16:07 POC Glucose 289 H Phys Exam - Physical Examination Respiratory: no wheezing, no rales, no rhonchi, wheezing present, clear to auscultation bilateral Cardiovascular: RRR, no significant murmur, no rub, gallop, irregular Gastrointestinal: soft, non-tender, no distention, positive bowel sounds Dx/Plan (1) Abscess of buttock Code(s): L02.31 - CUTANEOUS ABSCESS OF BUTTOCK Status: Acute Comment: continue clindamycin. Wound care to see pt tomorrow so they can make recommendations prior to discharge (2) Metabolic acidosis Code(s): E87.2 - ACIDOSIS Status: Acute Comment: pt had bicarbonate drip today, at time of discharge can be discharged on sodium bicarbonate 650 mg BID and follow up with Dr. Bruce in office (3) DKA (diabetic ketoacidoses) Code(s): E11.10 - TYPE 2 DIABETES MELLITUS WITH KETOACIDOSIS WITHOUT COMA Status: Chronic Comment: HbA1c 16. Pt will need insulin, to follow up with PCP at 9.30 AM on Tuesday. - Plan spoke with nephrology ok to stop bicarb -: will adminster pt insulin,asked nurse to educate her -: will continue current abx * . Review of Systems - Review of Systems Respiratory: negative: Cough, Dry, Shortness of Breath, Hemoptysis, SOB with Excertion, Pleuritic Pain, Sputum, Wheezing Cardiovascular: negative: chest pain, palpitations, orthopnea, paroxysmal nocturnal dyspnea, edema, light headedness, other Gastrointestinal: negative: Nausea, Vomiting, Abdominal Pain, Diarrhea, Constipation, Melena, Hematochezia, Other - Medications/Allergies Allergies/Adverse Reactions: Allergies Allergy/AdvReac Type Severity Reaction Status Date / Time No Known Drug Allergies Allergy Verified 10/06/18 06:48 Medications: Current Medications Acetaminophen (Tylenol Elixir) 650 mg PO Q6H PRN PRN Reason: Fever > 101 or Mild Pain Bisacodyl (Dulcolax) 10 mg PO DAILYPRN PRN PRN Reason: Constipation Dextrose/Water (Dextrose 50%) 25 gm IVP PRN PRN PRN Reason: HYPOGLYCEMIA PROTOCOL Enoxaparin Sodium (Lovenox) 40 mg SC 0900 [facility] Last Admin: 10/08/18 08:49 Dose: 40 mg Famotidine (Pepcid) 20 mg SLOW IVP Q12HR [facility] Last Admin: 10/08/18 08:49 Dose: 20 mg Fluconazole (Diflucan) 200 mg PO DAILY [facility] Last Admin: 10/08/18 08:49 Dose: 200 mg Glucagon (Glucagon) 1 mg IM PRN PRN PRN Reason: HYPOGLYCEMIA PROTOCOL Clindamycin Phosphate/Dextrose (600 mg/ Device) 50 mls @ 100 mls/hr IVPB Q8HR [facility] Last Admin: 10/08/18 05:44 Dose: 50 mls Dextrose/Sodium Chloride (D5 1/2 Ns) 1,000 mls @ 250 mls/hr IV .Q4H PRN; Protocol PRN Reason: Step 4 of DKA Protocol Potassium Chloride/Dextrose/Sod Cl (D5 1/2 Ns W/20 Meq Kcl) 1,000 mls @ 250 mls /hr IV .Q4H PRN; Protocol PRN Reason: Step 4 of DKA Protocol Sodium Chloride (Normal Saline 0.9%) 1,000 mls @ 500 mls/hr IV .Q2H PRN; Protocol PRN Reason: Step 1 of DKA Protocol Sodium Chloride (Normal Saline 0.9%) 1,000 mls @ 1,000 mls/hr IV .Q1H PRN; Protocol PRN Reason: Step 1 of DKA Protocol Sodium Chloride (Normal Saline 0.9%) 1,000 mls @ 250 mls/hr IV .Q4H PRN; Protocol PRN Reason: SEE STEP 3 OF DKA PROTOCOL Sodium Chloride (Normal Saline 0.9%) 1,000 mls @ 500 mls/hr IV .Q2H PRN; Protocol PRN Reason: Step 2 of DKA Protocol Potassium Chloride/Sodium Chloride (Ns 0.9% W/ 20 Meq Kcl) 1,000 mls @ 500 mls/ hr IV .Q2H PRN; Protocol PRN Reason: Step 2 of DKA Protocol Last Admin: 10/06/18 10:47 Dose: 1,000 mls Potassium Chloride/Sodium Chloride (Ns 0.9% W/ 20 Meq Kcl) 1,000 mls @ 250 mls/ hr IV .Q4H PRN; Protocol PRN Reason: SEE STEP 3 OF DKA PROTOCOL Potassium Chloride 40 meq/ (Sodium Chloride) 270 mls @ 135 mls/hr IVPB ASDIR PRN PRN Reason: FOR SERUM K+ 2.5 - 3.5 Potassium Chloride 40 meq/ (Device) 100 mls @ 50 mls/hr IVPB ASDIR PRN PRN Reason: FOR SERUM K+ 2.5 - 3.5 Magnesium Sulfate 1 gm/ Sodium (Chloride) 102 mls @ 102 mls/hr IV PRN PRN PRN Reason: MAG LEVEL 1.4 - 2.0 Magnesium Sulfate 2 gm/ Device 50 mls @ 50 mls/hr IVPB ASDIR PRN PRN Reason: MAGNESIUM < 1.4 Potassium Phosphate 9 mmol/ (Sodium Chloride) 103 mls @ 25.75 mls/hr IVPB ASDIR PRN PRN Reason: Phosphate 1.0-1.8 Potassium Phosphate 12 mmol/ (Sodium Chloride) 254 mls @ 63.5 mls/hr IV ASDIR PRN PRN Reason: Serum phosphate 0.5-0.9 Potassium Phosphate 15 mmol/ (Sodium Chloride) 255 mls @ 63.75 mls/hr IV ASDIR PRN PRN Reason: Serum Phos < 0.5 Dextrose/Water (D5w) 1,000 mls @ 0 mls/hr IV INF PRN PRN Reason: HYPOGLYCEMIA PROTOCOL Insulin Human Isoph/Insulin Regular (Humulin 70/30) 5 units SC BID-[facility] Insulin Human Lispro (Humalog) 0 units SC .MILD SLIDING SCALE PRN; Protocol PRN Reason: MILD SLIDING SCALE Last Admin: 10/08/18 11:04 Dose: 4 unit Magnesium Oxide (Magnesium Oxide) 400 mg PO BIDPRN PRN PRN Reason: FOR SERUM MAG 1.4 - 2.0 Magnesium Oxide (Magnesium Oxide) 800 mg PO PRN PRN PRN Reason: FOR SERUM MAG < 1.4 Metformin HCl (Glucophage) 500 mg PO BID-[facility] Last Admin: 10/08/18 08:49 Dose: 500 mg Miscellaneous Medication (Phos-Nak) 1 pkt PO TIDPRN PRN PRN Reason: FOR PHOS LEVEL 1.0 - 1.8 Miscellaneous Medication (Phos-Nak) 2 pkt PO TIDPRN PRN PRN Reason: FOR PHOS LEVEL 0.5 - 1.0 Ccu Electrolyte (Replacement Protocol) 0 each FS PRN PRN PRN Reason: FOR ELECTROLYTE REPLACEMENT Nystatin (Mycostatin Cream) 0 gm TOP Q8HR [facility] Last Admin: 10/08/18 06:10 Dose: 1 applic Potassium Chloride (K-Dur) 40 meq PO ASDIR PRN PRN Reason: FOR SERUM K+ 2.5 - 3.5 Potassium Chloride (Klor-Con) 40 meq PER TUBE ASDIR PRN PRN Reason: FOR SERUM K+ 2.5-3.5 Tramadol HCl (Ultram) 50 mg PO Q4H PRN PRN Reason: Moderate Pain (4-6) Last Admin: 10/08/18 12:40 Dose: 50 mg
[2018-10-08] MEDS ORDERED: HumuLIN 70/30 (300 UNITS/3 ML VIAL) SC SCH ×3 (14:45→21:00)
[2018-10-09] MEDS: traMADol HCl 50 MG TAB PO PRN ×3 (00:24→09:53)
[2018-10-09] MEDS: Nystatin Cream 15 GM TUBE TOP SCH ×2 (05:32→14:07)
[2018-10-09 05:42] LABS: ALT (SGPT) 8 U/L (8-55); AST (SGOT) 7 U/L (5-34); Albumin 3.3 g/dL (3.5-5.0); Alkaline Phosphatase 86 U/L (40-150); Anion Gap 15 mmol/L (10-20); BUN (Urea Nitrogen) 4 mg/dL (7.0-18.7); Bilirubin, Total 0.2 mg/dL (0.2-1.2); Calc. Creatinine Clearance 180 mL/min (70-130); Calcium 9.1 mg/dL (7.8-10.44); Carbon Dioxide 24 mmol/L (22-29); Chloride 100 mmol/L (98-107); Estimated GFR-MDRD Greater than 90; Globulin 2.7 g/dL (2.4-3.5); Glucose 271 mg/dL (70-105); Potassium 3.8 mmol/L (3.5-5.1); Sodium 135 mmol/L (136-145)
[2018-10-09] MEDS: HumaLOG 300 UNITS/3 ML VIAL SC PRN ×2 (05:55→10:56)
[2018-10-09] MEDS ORDERED: HumuLIN 70/30 (300 UNITS/3 ML VIAL) SC SCH (08:00)
[2018-10-09 08:23] LABS: Band 13 % (5-11); Eosinophils 2 % (0-10); Hemoglobin 12.7 g/dL (12.0-16.0); Lymphocytes 34 % (21-51); MDiff Complete? YES; Mean Corpuscular Hemoglobin 31.6 pg (27.0-31.0); Mean Platelet Volume 10.6 fL (7.4-10.4); Monocytes 8 % (0-10); Neutrophil 39 % (42-75); Platelet Count 154 thou/uL (130-400); RBC Distribution Width 12.8 % (11.5-14.5); RBC Morphology Normal; Reactive Lymphocytes 3 % (0-10); Red Blood Cell (RBC) Count 4.02 mill/uL (4.20-5.40); White Blood Cell (WBC) Count 5.7 thou/uL (4.8-10.8)
[2018-10-09] MEDS ORDERED: Amoxicillin/Potassium Clav 875 MG TAB PO SCH (09:00)
[2018-10-09] MEDS: Fluconazole 100 MG TAB PO SCH (09:07)
[2018-10-09] MEDS: Famotidine/PF 20 mg/2ml Vial SLOW IVP SCH (09:07)
[2018-10-09] MEDS: metFORMIN 500 MG TAB PO SCH (09:07)
[2018-10-09] MEDS: Enoxaparin Sodium 40 MG/0.4 ML SYRINGE SC SCH (09:07)
--- NOTE | 2018-10-09 09:56 | PRG ---
DATE OF SERVICE: 10/08/2018 SUBJECTIVE: Patient was seen and examined at bedside and overnight events noted. Patient denies any shortness of breath or chest pain or palpitation. No history of nausea or vomiting or diarrhea or fever or chills or cramps. OBJECTIVE: GENERAL: This is a well-built female, in no apparent distress. VITAL SIGNS: Temperature . HEENT: Atraumatic, normocephalic. Oral mucosa is moist. NECK: Supple. CARDIOVASCULAR: S1, S2 heard. Rate and rhythm regular. RESPIRATORY: Clear to auscultation. GASTROINTESTINAL: Abdomen is soft. MUSCULOSKELETAL: No tenderness. No edema. DERMATOLOGIC: No skin rash. NEUROLOGIC: Alert and awake and oriented x3. No focal neurologic deficits. Moving all the extremities. PSYCHIATRIC: Mood and affect normal. LABORATORY DATA: Potassium is 3.9, BUN is 4, and creatinine is 0.81. ASSESSMENT AND PLAN: 1. Metabolic acidosis, better. 2. Hyponatremia, better. 3. Diabetic ketoacidosis. 4. Diabetes mellitus. bicarb is corrected. We will follow. Job ID: [id number]
[2018-10-09 11:15] VITALS: TEMP 97.4
[2018-10-09 14:40] VITALS: BMI 31.3
--- NOTE | 2018-10-09 22:13 | DIS ---
DATE OF ADMISSION: 10/06/2018 DATE OF DISCHARGE: 10/09/2018 DISCHARGE DIAGNOSES: As of the followin. Left buttock abscess. 2. Metabolic acidosis. 3. Diabetic ketoacidosis. 4. Obesity. HOSPITAL COURSE: The patient is a 23-year-old female, who came into the hospital with complaints of left-sided buttock pain. The patient was seen in the ER, underwent an incision and drainage in which the cultures indicated strep agalactiae. The patient initially was put on clindamycin and was switched over to Augmentin on discharge. The patient also at that time was found to be in DKA. She was put on an insulin drip, which was converted to subcu insulin. The patient also was on metformin and has been compliant with her medications. She also was treated with Diflucan for yeast infection around her vaginal area. The patient's blood sugar on discharge has still been around in the upper 200s. She has been instructed on how to administer insulin by nursing staff and I have also emphasized on the fact the patient needs to check her blood sugars, and we will provide her with a blood sugar machine with help and she needs to take her blood sugar readings to her PCP. The patient also did complain of a redness around her right labial lip, most likely secondary to Bartholin's cyst. I recommended warm compress. The area still appeared to be very indurated. It was not soft at all. I do not think there is any need for any kind of drainage at this time and even if she did, she would require surgical consult. I did recommend to follow up with her primary and continue warm compress. HOME MEDICATIONS: As of the following. She is going to go on: 1. Nystatin topical q.8 hours p.r.n. 2. Metformin 500 b.i.d. 3. Tramadol 50 mg q.4 hours p.r.n. 4. She is to have lancets and Accu-Cheks and a glucometer machine. 5. Humalog 70/30, 8 units b.i.d. 6. Augmentin 875 one p.o. q.12 hours. PHYSICAL EXAMINATION: VITAL SIGNS: Temperature of 98.8, 73, 133/88, and 95% on room air. GENERAL: She is awake, alert, and oriented x3. Does not appear in distress. CV: S1 and S2 present. No murmurs, rubs, or gallops. ABDOMEN: Soft and nontender. Bowel sounds are present x2. EXTREMITIES: No edema. Again, she will follow up with her primary. I did emphasize the fact that she needs to control her blood sugars to get better control of her yeast infection. She also has significant psoriasis on her scalp area, which I have recommended for her to go see a cloth dyeing range tender. Job ID: [id number]
== END 2018-10-09 14:54 | disposition home or self-care (01) | DRG 602 ==
LOC: ERS 02:57 → IMCU/EMU 04:28
PROVIDERS: ADMIT Internal Medicine; ATTEND Internal Medicine
PROC: 0H98XZZ Drainage of Buttock Skin, External Approach (ICD-10-PCS; principal; 2018-10-06)
DX: L02.31 Cutaneous abscess of buttock (principal); E11.10 Type 2 diabetes mellitus with ketoacidosis without coma; E87.1 Hypo-osmolality and hyponatremia; E87.2 Acidosis; B95.4 Other streptococcus as the cause of diseases classified elsewhere; E66.9 Obesity, unspecified; L40.9 Psoriasis, unspecified; Z68.31 Body mass index [BMI] 31.0-31.9, adult; Z79.84 Long term (current) use of oral hypoglycemic drugs
CPT/HCPCS: 10060; 36415; 36416; 80053; 81003; 82010; 83036; 85007; 85025; 85027; 87070; 87077; 87205; 96361; 96365; 96375; J1650; J1815; J1825; J2001; J2270; J3480; J3490; J7070; S0028

== ENCOUNTER 2018-11-28 22:38 | Inpatient (IN) | payer SELFPAY ==
[2018-11-28] MEDS ORDERED: Ondansetron PF 4 MG/2 ML Vial ONE (23:16)
[2018-11-28 23:18] LABS: #Basophils 0.1 thou/uL (0.0-0.2); #Lymphocytes 1.5 thou/uL (1.20-3.40); #Monocytes 0.5 thou/uL (0.11-0.59); #Neutrophils 8.6 thou/uL (1.40-6.50); %Basophils 0.5 % (0.0-1.0); %Eosinophils 0.4 % (0.0-10.0); %Lymphocytes 14.2 % (21.0-51.0); %Monocytes 4.6 % (0.0-10.0); %Neutrophils 80.2 % (42.0-75.0); Hemoglobin 16.2 g/dL (12.0-16.0); Mean Corpuscular HGB CONC 32.4 g/dL (32.0-36.0); Mean Corpuscular Hemoglobin 30.8 pg (27.0-31.0); Mean Platelet Volume 10.1 fL (7.4-10.4); Platelet Count 238 thou/uL (130-400); Red Blood Cell (RBC) Count 5.25 mill/uL (4.20-5.40); White Blood Cell (WBC) Count 10.7 thou/uL (4.8-10.8)
[2018-11-28 23:26] LABS: BHCG - Serum Negative (NEGATIVE); Pregs Control Background? CLEAR/WHITE (CLR/WHITE); Pregs Control Bar Appear? YES (CONTROL BAR)
[2018-11-29 00:10] LABS: Albumin 4.1 g/dL (3.5-5.0)
[2018-11-29 00:11] LABS: Chloride 98 mmol/L (98-107); Sodium 127 mmol/L (136-145)
[2018-11-29 00:12] LABS: Calcium 8.9 mg/dL (7.8-10.44); Glucose 493 mg/dL (70-105)
[2018-11-29 00:13] LABS: Globulin 3.1 g/dL (2.4-3.5); Protein, Total 7.2 g/dL (6.0-8.3)
[2018-11-29 00:14] LABS: Anion Gap 23 mmol/L (10-20); Bilirubin, Total 0.5 mg/dL (0.2-1.2); Carbon Dioxide 11 mmol/L (22-29)
[2018-11-29 00:15] LABS: Alkaline Phosphatase 103 U/L (40-150)
[2018-11-29 00:16] LABS: Calc. Creatinine Clearance 0 mL/min (70-130); Estimated GFR-MDRD 75
[2018-11-29 00:17] LABS: BUN (Urea Nitrogen) 9 mg/dL (7.0-18.7)
[2018-11-29 00:18] LABS: ALT (SGPT) Less than 7 U/L (8-55); AST (SGOT) 5 U/L (5-34)
[2018-11-29 00:19] LABS: Lipase Less than 4 U/L (8-78)
[2018-11-29 00:50] LABS: Bilirubin Negative (Negative); Blood, Urine Negative (Negative); Clarity Clear (Clear); Glucose, Urine (Dipstick) Greater than 1000 mg/dL (Negative); Leukocyte 250 Leu/uL (Negative); Nitrite Negative (Negative); Protein, Urine (Dipstick) Negative (Neg-Trace); Squamous Epithelial 0-3 HPF (0-3); Urobilinogen Normal mg/dL (Less than 2)
[2018-11-29 00:57] LABS: Bacteria/HPF 1+ HPF (None Seen)
[2018-11-29] MEDS ORDERED: HUMULIN R 100 UNITS in Sodium Chloride 0.9% 100 ML IVPB SCH ×2 (01:00→02:00)
[2018-11-29] MEDS ORDERED: Sodium Chloride 0.9% 1,000 ML IV PRN ×4 (01:52)
[2018-11-29] MEDS ORDERED: CCU Electrolyte Replacement 1 EACH IVPB ONE (01:52)
[2018-11-29] MEDS ORDERED: Ondansetron PF 4 MG/2 ML Vial IVP PRN (01:52)
[2018-11-29] MEDS ORDERED: NS 0.9% w/ 20 MEQ KCL 1,000 ML IV PRN ×2 (01:52)
[2018-11-29] MEDS ORDERED: Ondansetron ODT 4 MG TAB PO PRN (01:52)
[2018-11-29] MEDS ORDERED: Dextrose 5 %-0.45 % NaCl 1,000 ML IV PRN (01:52)
[2018-11-29] MEDS ORDERED: Acetaminophen 325 MG TAB PO PRN (01:52)
[2018-11-29] MEDS ORDERED: PHOS-NAK 1 PKT PACK PO PRN ×2 (02:02)
[2018-11-29] MEDS ORDERED: Potassium Phosphate 12 MMOL in Sodium Chloride 0.9% 250 ML 250 ML IV PRN (02:02)
[2018-11-29] MEDS ORDERED: Potassium Chloride 40 MEQ in Sodium Chloride 0.9% 250 ML 250 ML IVPB PRN (02:02)
[2018-11-29] MEDS ORDERED: Magnesium 2 GM/50 ML 2 GM in Premix Bag 1 BAG IVPB PRN (02:02)
[2018-11-29] MEDS ORDERED: Potassium Phosphate 15 MMOL in Sodium Chloride 0.9% 250 ML 250 ML IV PRN (02:02)
[2018-11-29] MEDS ORDERED: Potassium Chloride 20 MEQ TAB PO PRN (02:02)
[2018-11-29] MEDS ORDERED: Potassium Chloride 40 MEQ in Premix Bag 1 BAG IVPB PRN (02:02)
[2018-11-29] MEDS ORDERED: Potassium Phosphate 9 MMOL in Sodium Chloride 0.9% 100 ML IVPB PRN (02:02)
[2018-11-29] MEDS ORDERED: Magnesium Oxide 400 MG TAB PO PRN ×2 (02:02)
[2018-11-29] MEDS ORDERED: CCU ELECTROLYTE REPLACEMENT PROTOCOL FS PRN (02:02)
[2018-11-29 02:32] LABS: Anion Gap 18 mmol/L (10-20); BUN (Urea Nitrogen) 8 mg/dL (7.0-18.7); Calc. Creatinine Clearance 0 mL/min (70-130); Calcium 9.4 mg/dL (7.8-10.44); Carbon Dioxide 13 mmol/L (22-29); Chloride 104 mmol/L (98-107); Estimated GFR-MDRD 84; Glucose 318 mg/dL (70-105); Potassium 4.4 mmol/L (3.5-5.1); Sodium 131 mmol/L (136-145)
[2018-11-29] MEDS: D5 1/2 NS w/20 mEq KCL 1,000 ML IV PRN ×2 (03:35→09:00)
[2018-11-29] MEDS: cefTRIAXone\\ROCEPHIN 1 GM in Sodium Chloride 0.9% 100 ML IVPB SCH (04:03)
[2018-11-29 06:04] VITALS: BMI 28.4
[2018-11-29 06:14] LABS: #Basophils 0.1 thou/uL (0.0-0.2); #Eosinphils 0.2 thou/uL (0.0-0.7); #Lymphocytes 2.8 thou/uL (1.20-3.40); #Monocytes 0.6 thou/uL (0.11-0.59); #Neutrophils 5.1 thou/uL (1.40-6.50); %Basophils 1.1 % (0.0-1.0); %Eosinophils 2.1 % (0.0-10.0); %Lymphocytes 31.9 % (21.0-51.0); %Monocytes 7.1 % (0.0-10.0); %Neutrophils 57.7 % (42.0-75.0); Hemoglobin 13.5 g/dL (12.0-16.0); Mean Corpuscular HGB CONC 32.2 g/dL (32.0-36.0); Mean Corpuscular Hemoglobin 29.9 pg (27.0-31.0); Mean Corpuscular Volume 92.9 fL (78.0-98.0); Mean Platelet Volume 9.3 fL (7.4-10.4); Platelet Count 194 thou/uL (130-400); RBC Distribution Width 11.9 % (11.5-14.5); Red Blood Cell (RBC) Count 4.53 mill/uL (4.20-5.40); White Blood Cell (WBC) Count 8.8 thou/uL (4.8-10.8)
[2018-11-29 06:35] LABS: Anion Gap 12 mmol/L (10-20); BUN (Urea Nitrogen) 7 mg/dL (7.0-18.7); Calc. Creatinine Clearance 144 mL/min (70-130); Calcium 9.1 mg/dL (7.8-10.44); Carbon Dioxide 17 mmol/L (22-29); Chloride 106 mmol/L (98-107); Estimated GFR-MDRD Greater than 90; Glucose 232 mg/dL (70-105); Potassium 3.5 mmol/L (3.5-5.1); Sodium 131 mmol/L (136-145)
[2018-11-29] MEDS: Enoxaparin Sodium 40 MG/0.4 ML SYRINGE SC SCH (08:59)
[2018-11-29 10:32] LABS: Anion Gap 12 mmol/L (10-20); BUN (Urea Nitrogen) 7 mg/dL (7.0-18.7); Calc. Creatinine Clearance 156 mL/min (70-130); Calcium 8.9 mg/dL (7.8-10.44); Carbon Dioxide 17 mmol/L (22-29); Chloride 108 mmol/L (98-107); Estimated GFR-MDRD Greater than 90; Glucose 174 mg/dL (70-105); Potassium 3.6 mmol/L (3.5-5.1); Sodium 133 mmol/L (136-145)
[2018-11-29] MEDS ORDERED: HYDROcodone/Acetaminophen 5/325 mg Tablet PO PRN (11:08)
[2018-11-29] MEDS ORDERED: Artificial Tears 18 DROP/0.9 ML EA EYE PRN (11:08)
[2018-11-29] MEDS ORDERED: hydrALAZINE 20 MG/ML VIAL SLOW IVP PRN (11:08)
[2018-11-29] MEDS ORDERED: Bisacodyl 10 MG SUPP PR PRN (11:08)
[2018-11-29] MEDS ORDERED: Dextrose 50% Abboject 50 ML SYRINGE SLOW IVP PRN (11:08)
[2018-11-29] MEDS ORDERED: HumaLOG 300 UNITS/3 ML VIAL SC PRN (11:08)
[2018-11-29] MEDS ORDERED: Zolpidem Tartrate 5 MG TAB PO PRN (11:08)
[2018-11-29] MEDS ORDERED: Loperamide HCl 2 MG CAP PO PRN (11:08)
[2018-11-29] MEDS ORDERED: Cepastat Lozenges 1 LOZ PO PRN (11:08)
[2018-11-29] MEDS ORDERED: Diabetic Tussin 200 MG/10 ML UDCUP PO PRN (11:08)
[2018-11-29] MEDS ORDERED: Loratadine 10 MG TAB PO PRN (11:08)
[2018-11-29] MEDS ORDERED: Dextrose 5% in Water 1,000 ML IV PRN (11:08)
[2018-11-29] MEDS ORDERED: Sodium Chloride 0.65% Nasal 44 ML BOT EA NARE PRN (11:08)
[2018-11-29] MEDS ORDERED: Calcium Carbonate 500 MG ChewTAB PO PRN (11:08)
[2018-11-29] MEDS ORDERED: Senokot S 8.6-50 MG TAB PO PRN (11:08)
[2018-11-29] MEDS ORDERED: Insulin Glargine 10 UNITS in Pre-Filled Syringe 1 EACH SC SCH (11:15)
[2018-11-29] MEDS ORDERED: Sodium Chloride 0.9% 1,000 ML IV SCH (11:15)
--- NOTE | 2018-11-29 11:56 | PDOC.HOSPP ---
- Subjective Subjective: Patient seen and examined. No new complaints. No overnight events - Objective Vital Signs & Weight: Vital Signs (12 hours) Temp Pulse Resp BP Pulse Ox 11/29/18 10:56 97.8 F 11/29/18 07:34 100 11/29/18 07:03 98.5 F 11/29/18 04:00 104 H 17 108/67 94 L 11/29/18 03:57 98.6 F 11/29/18 03:00 90 15 106/71 97 11/29/18 02:43 92 22 H 108/73 96 11/29/18 02:32 97 Weight Weight 170 lb 13.732 oz Most Recent Monitor Data Heart Rate from ECG 89 NIBP 96/62 NIBP BP-Mean 73 Respiration from ECG 14 SpO2 99 I&O: 11/28/18 11/29/18 11/30/18 06:59 06:59 06:59 Intake Total 975 0 Output Total 0 Balance 975 0 Result Diagrams: 11/29/18 06:04 11/29/18 10:01 Additional Labs: Accuchecks 11/29/18 11/29/18 11/29/18 11:15 10:03 09:06 POC Glucose 167 H 161 H 198 H 11/29/18 11/29/18 11/29/18 08:01 06:57 06:01 POC Glucose 195 H 229 H 207 H 11/29/18 11/29/18 11/29/18 04:33 03:29 02:38 POC Glucose 181 H 208 H 256 H 11/29/18 02:10 POC Glucose 286 H EKG Reviewed by me: Yes ROS - Review of Systems All systems: All other ROS were reviewed and found negative. ENT: denies: ear pain, ear discharge, nose pain, nose discharge, nose congestion , mouth pain, mouth swelling, throat pain, throat swelling, other Respiratory: denies: cough, dry, shortness of breath, hemoptysis, SOB with excertion, pleuritic pain, sputum, wheezing, other Cardiovascular: denies: chest pain, palpitations, orthopnea, paroxysmal noc. dyspnea, edema, light headedness, other Gastrointestinal: denies: nausea, vomitting, abdominal pain, diarrhea, constipation, melena, hematochezia, other Musculoskeletal: denies: neck pain, shoulder pain, arm pain, back pain, hand pain, leg pain, foot pain, other Skin: denies: rash, lesions, adis, bruising, other - Medication Medications: Active Medications Generic Name Dose Route Start Last Admin Trade Name Tonny PRN Reason Stop Dose Admin Enoxaparin Sodium 40 mg 11/29/18 09:00 11/29/18 08:59 Lovenox SC Not Given 0900 [facility] Ceftriaxone Sodium 1 gm/ 100 mls @ 200 mls/hr 11/29/18 03:00 11/29/18 04:03 Sodium Chloride IVPB 100 mls Q24HR LEROY Administration - Exam NAD, awake alert Eye: PERRL, anicteric sclera ENT: normocephalic atraumatic, no oropharyngeal lesions Neck: supple, symmetric, no JVD, no Thyromegaly Heart: RRR, no murmur, no gallops, no rubs Respiratory: CTAB, no wheezes, no rales, no ronchi Gastrointestinal: soft, non-tender, non-distended, normal bowel sounds Extremities: no cyanosis, no clubbing, no edema Skin: normal turgor, no lesions, no rashes Neurological: CN's grossly intact, normal sensation to touch, no focal deficits Musculoskeletal: normal tone, normal strength Psychiatric: normal affect, normal behavior, A&O x 3 Hosp A/P (1) DKA (diabetic ketoacidoses) Code(s): E11.10 - TYPE 2 DIABETES MELLITUS WITH KETOACIDOSIS WITHOUT COMA Status: Acute (2) Hyponatremia Code(s): E87.1 - HYPO-OSMOLALITY AND HYPONATREMIA Status: Acute (3) Diabetes type 1, controlled Code(s): E10.9 - TYPE 1 DIABETES MELLITUS WITHOUT COMPLICATIONS Status: Chronic - Plan old records reviewed/req gradually dc insulin drip give lantus 10 unit now and 20 unit sc HS transfer to medical continue NS 75 ml per hour repeat labs tomorrow medication reviewed as below symptomatic treatment
[2018-11-29 14:40] LABS: Base Excess-Venous -14.8 mmol/L (-2.0 to 3.0); Calcium, Ionized 1.17 mmol/L (See Comments:); Chloride 103 mmol/L (98-107); Hemoglobin - Calc 16.3 g/dL (12.0-16.0); Potassium 4.5 mmol/L (3.5-5.1); Sodium 128 mmol/L (138-145); T. Carbon Dioxide 12.9 mmol/L (22.0-28.0); vO2 Saturation-calc 97.6 % (60.0-85.0)
[2018-11-29] MEDS: HumaLOG 300 UNITS/3 ML VIAL SC PRN (16:16)
[2018-11-29] MEDS ORDERED: Non-Formulary Item 1 EACH (Insulin Detemir [Levemir Flextouch] 20 UNIT) SC SCH (21:00)
[2018-11-29] MEDS: Famotidine 20 MG TAB PO SCH (21:05)
[2018-11-29] MEDS: Insulin Glargine 20 UNITS in Pre-Filled Syringe 1 EACH SC SCH (21:06)
--- NOTE | 2018-11-30 02:26 | HP ---
PRIMARY CARE PHYSICIAN: The patient follows with [facility]. CODE STATUS: Full code. TIME OF EVALUATION: 2:00 a.m. CHIEF COMPLAINT: Nausea and vomiting, and left upper quadrant pain. HISTORY OF PRESENT ILLNESS: The patient's symptoms were severe. No clear triggers, no alleviating factors. The patient presented, chemistry showed that she is in DKA. She has been placed in the hospital on diabetic ketoacidosis protocol. REVIEW OF SYSTEMS: CONSTITUTIONAL: No fever. The patient has chills and generalized weakness. RESPIRATORY: No cough, sputum production, or shortness of breath. CARDIOVASCULAR: No chest pain, or palpitation. GASTROINTESTINAL: The patient has nausea, vomiting. No diarrhea. The patient has abdominal pain. 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 GENITOURINARY: No burning on urination. EXTREMITIES: No leg swelling. All other systems were reviewed and negative except for the findings mentioned above. PAST MEDICAL HISTORY: As mentioned in the HPI. PAST SURGICAL HISTORY: No surgical history. PSYCHIATRIC HISTORY: Anxiety. SOCIAL HISTORY: The patient currently use marijuana, smokes cigarettes. FAMILY HISTORY: Mother is diabetic. KNOWN ALLERGIES: No known drug allergies. REPORTED MEDICATIONS: The patient takes Levemir. PHYSICAL EXAMINATION: VITAL SIGNS: Blood pressure 121/87, heart rate 123, respiratory rate was 20, temperature 98.8, pain was 0/10, oxygen saturation 98% on room air. GENERAL APPEARANCE: The patient is alert, oriented, in no acute distress. HEENT: Eyes, normal conjunctivae. Dry oral mucosa. Anicteric. No JVD. RESPIRATORY: Bilateral air entry. No rales. No wheezes. Symmetric expansion. CARDIOVASCULAR: Normal rate, regular rhythm. No murmurs. No gallop. No edema. ABDOMEN: Soft. Normal bowel sounds. There is some mild tenderness in the abdomen that is diffuse. MUSCULOSKELETAL: Baseline range of motion and strength. SKIN: Warm, intact. No pallor. No rash. No redness. Capillary refill seems to be intact. NEUROLOGIC: No evidence of any new focal weakness. Cranial nerves seems to be intact. PSYCHIATRIC: The patient is in good mood. No anxiety. Optimal judgment. DIAGNOSTIC STUDIES: EKG was reviewed. The patient has normal sinus rhythm with a rate of 84 with MS 160, QRS 88, QT corrected 480. No evidence of any acute findings. LABORATORY DATA: Reviewed. The patient has a white count 10.7, hemoglobin 16.2, hematocrit 49.9, MCV 95, platelet count 238. Sodium 137, potassium 5.0, chloride 98, carbon dioxide 11, anion gap 23, BUN 9, creatinine 0.9, GFR 75, glucose 193, calcium 9.9, total bilirubin 0.5, AST 5, ALT less than 7, albumin 4.1. Urine was done and was positive for white count 11 to 20, some RBCs, glucosuria and ketonuria. Beta hydroxybutyrate 6.97. ASSESSMENT AND PLAN: The patient will be placed in the hospital with following medical problems: 1. Diabetes ketoacidosis. The patient will be placed on diabetic ketoacidosis protocol. We will place her in IMCU. We will continue to monitor, likely to be corrected. 2. Urinary tract infection. The patient will be started on antibiotics. We will continue for now. 3 . Deep venous thrombosis prophylaxis. Job ID: [id number]
[2018-11-30] MEDS: cefTRIAXone\\ROCEPHIN 1 GM in Sodium Chloride 0.9% 100 ML IVPB SCH (03:10)
[2018-11-30 04:58] LABS: #Basophils 0.1 thou/uL (0.0-0.2); #Eosinphils 0.2 thou/uL (0.0-0.7); #Lymphocytes 2.7 thou/uL (1.20-3.40); #Monocytes 0.5 thou/uL (0.11-0.59); #Neutrophils 4.1 thou/uL (1.40-6.50); %Basophils 0.9 % (0.0-1.0); %Eosinophils 2.9 % (0.0-10.0); %Lymphocytes 35.3 % (21.0-51.0); %Monocytes 6.2 % (0.0-10.0); %Neutrophils 54.7 % (42.0-75.0); Hemoglobin 13.4 g/dL (12.0-16.0); Mean Corpuscular HGB CONC 34.2 g/dL (32.0-36.0); Mean Corpuscular Hemoglobin 31.9 pg (27.0-31.0); Mean Corpuscular Volume 93.3 fL (78.0-98.0); Mean Platelet Volume 9.4 fL (7.4-10.4); Platelet Count 167 thou/uL (130-400); RBC Distribution Width 11.9 % (11.5-14.5); White Blood Cell (WBC) Count 7.5 thou/uL (4.8-10.8)
[2018-11-30 05:03] LABS: Hemoglobin A1c 15.7 % (4.0-6.0)
[2018-11-30 05:18] LABS: Anion Gap 15 mmol/L (10-20); BUN (Urea Nitrogen) 7 mg/dL (7.0-18.7); Calc. Creatinine Clearance 159 mL/min (70-130); Calcium 8.9 mg/dL (7.8-10.44); Carbon Dioxide 18 mmol/L (22-29); Chloride 105 mmol/L (98-107); Estimated GFR-MDRD Greater than 90; Glucose 236 mg/dL (70-105); Magnesium 1.6 mg/dL (1.6-2.6); Potassium 4.1 mmol/L (3.5-5.1); Sodium 134 mmol/L (136-145)
[2018-11-30] MEDS: HumaLOG 300 UNITS/3 ML VIAL SC PRN ×2 (06:36→16:34)
[2018-11-30] MEDS ORDERED: Dextrose 5 % And 0.9 % NaCl 1,000 ML IV SCH (07:30)
[2018-11-30] MEDS: Enoxaparin Sodium 40 MG/0.4 ML SYRINGE SC SCH (08:22)
[2018-11-30] MEDS: Famotidine 20 MG TAB PO SCH ×2 (08:22→22:05)
[2018-11-30] MEDS: Insulin Glargine 20 UNITS in Pre-Filled Syringe 1 EACH SC SCH ×2 (08:40→22:04)
[2018-11-30] MEDS ORDERED: HumaLOG 300 UNITS/3 ML VIAL SC SCH (11:15)
--- NOTE | 2018-11-30 12:05 | PDOC.HOSPP ---
- Subjective Subjective: Patient seen and examined. No new complaints. No overnight events - Objective Vital Signs & Weight: Vital Signs (12 hours) Temp Pulse Resp BP BP Pulse Ox 11/30/18 08:10 98.0 F 73 18 112/65 100 11/30/18 04:17 98.4 F 71 16 98/53 L 100 11/30/18 00:13 98.3 F 74 16 91/52 L 99 Weight Admit Weight 170 lb 13.732 oz Weight 170 lb 13.732 oz Most Recent Monitor Data Heart Rate from ECG 88 NIBP 110/67 NIBP BP-Mean 81 Respiration from ECG 16 SpO2 99 I&O: 11/29/18 11/30/18 12/01/18 06:59 06:59 06:59 Intake Total 975 4023.5 Output Total 0 Balance 975 4023.5 Result Diagrams: 11/30/18 04:49 11/30/18 04:49 Additional Labs: Accuchecks 11/29/18 11/29/18 11/28/18 20:28 15:53 22:44 POC Glucose 238 H 272 H Greater than 550 H* ROS - Review of Systems All systems: All other ROS were reviewed and found negative. Constitutional: denies: fever, chills, sweats, weakness, malaise, other Eyes: denies: pain, vision change, conjunctivae inflammation, eyelid inflammation, redness, other ENT: denies: ear pain, ear discharge, nose pain, nose discharge, nose congestion , mouth pain, mouth swelling, throat pain, throat swelling, other Respiratory: denies: cough, dry, shortness of breath, hemoptysis, SOB with excertion, pleuritic pain, sputum, wheezing, other Cardiovascular: denies: chest pain, palpitations, orthopnea, paroxysmal noc. dyspnea, edema, light headedness, other Gastrointestinal: denies: nausea, vomitting, abdominal pain, diarrhea, constipation, melena, hematochezia, other Genitourinary: denies: dysuria, frequency, incontinence, hematuria, retention, other Musculoskeletal: denies: neck pain, shoulder pain, arm pain, back pain, hand pain, leg pain, foot pain, other - Medication Medications: Active Medications Generic Name Dose Route Start Last Admin Trade Name Freq PRN Reason Stop Dose Admin Enoxaparin Sodium 40 mg 11/29/18 09:00 11/30/18 08:22 Lovenox SC 40 mg 0900 LEROY Administration Famotidine 20 mg 11/29/18 21:00 11/30/18 08:22 Pepcid PO 20 mg BID LEROY Administration Ceftriaxone Sodium 1 gm/ 100 mls @ 200 mls/hr 11/29/18 03:00 11/30/18 03:10 Sodium Chloride IVPB 100 mls Q24HR LEROY Administration Insulin Glargine 20 units/ 0.2 mls @ 0 mls/hr 11/29/18 21:00 11/29/18 21:06 Miscellaneous Medication SC 0.2 mls HS LEROY Administration Insulin Glargine 20 units/ 0.2 mls @ 0 mls/hr 11/30/18 09:00 11/30/18 08:40 Miscellaneous Medication SC 0.2 mls QAM LEROY Administration Insulin Human Lispro 0 units 11/29/18 11:08 11/30/18 06:36 Humalog SC 6 unit .AGGRESSIVE SLIDING PRN Administration Aggressive Correctional Scale Insulin Human Lispro 15 units 11/30/18 11:15 11/30/18 11:27 Humalog SC 11/30/18 13:15 15 unit NOW LEROY Administration - Exam NAD, awake alert Eye: PERRL, anicteric sclera ENT: normocephalic atraumatic, no oropharyngeal lesions Neck: supple, symmetric, no JVD Heart: RRR, no murmur, no gallops Respiratory: CTAB, no wheezes, no rales, no ronchi Gastrointestinal: soft, non-tender, non-distended, normal bowel sounds Extremities: no cyanosis, no clubbing, no edema Skin: normal turgor, no lesions Neurological: CN's grossly intact, no focal deficits Musculoskeletal: normal tone, normal strength Psychiatric: normal affect, normal behavior Hosp A/P (1) DKA (diabetic ketoacidoses) Code(s): E11.10 - TYPE 2 DIABETES MELLITUS WITH KETOACIDOSIS WITHOUT COMA Status: Resolved (2) Hyponatremia Code(s): E87.1 - HYPO-OSMOLALITY AND HYPONATREMIA Status: Acute (3) Diabetes type 1, controlled Code(s): E10.9 - TYPE 1 DIABETES MELLITUS WITHOUT COMPLICATIONS Status: Chronic - Plan old records reviewed/req, continue antibiotics increase lantus 20 unit sc bid as her ketons high, tried dex ns at 50 ml per hour but her blood sugar going very high, so stopped she is eating well, today will observe as her blood sugar needs to be controlled expecting discharge tomorrow her diabetes is chronically uncontrolled provided diabetes education
[2018-12-01] MEDS: cefTRIAXone\\ROCEPHIN 1 GM in Sodium Chloride 0.9% 100 ML IVPB SCH (02:19)
[2018-12-01 04:48] LABS: Anion Gap 11 mmol/L (10-20); BUN (Urea Nitrogen) 7 mg/dL (7.0-18.7); Calc. Creatinine Clearance 183 mL/min (70-130); Calcium 9.4 mg/dL (7.8-10.44); Carbon Dioxide 24 mmol/L (22-29); Chloride 106 mmol/L (98-107); Estimated GFR-MDRD Greater than 90; Glucose 223 mg/dL (70-105); Potassium 4.1 mmol/L (3.5-5.1); Sodium 137 mmol/L (136-145)
[2018-12-01] MEDS: HumaLOG 300 UNITS/3 ML VIAL SC PRN ×3 (05:45→16:31)
[2018-12-01] MEDS: Insulin Glargine 20 UNITS in Pre-Filled Syringe 1 EACH SC SCH (08:35)
[2018-12-01] MEDS: Famotidine 20 MG TAB PO SCH ×2 (08:35→21:43)
[2018-12-01] MEDS: Enoxaparin Sodium 40 MG/0.4 ML SYRINGE SC SCH (08:35)
--- NOTE | 2018-12-01 14:01 | PRG ---
DATE OF SERVICE: 12/01/2018 SUBJECTIVE: The patient is seen and examined at the bedside. She is feeling better. No nausea. No vomiting. No abdominal pain. OBJECTIVE: VITAL SIGNS: Blood pressure is 96/57, pulse is 68, respiratory rate is 18, temperature is 98.1, O2 saturation is 100% on room air. HEENT: Her head is atraumatic and normocephalic. Eyes are PERRLA. Sclerae are nonicteric. Oral mucosa is moist. NECK: Supple. LUNGS: Clear. HEART: S1 and S2 normal. No S3. No S4. ABDOMEN: Soft, nontender, and nondistended. EXTREMITIES: No clubbing, cyanosis, or edema. NEUROLOGIC: She is alert and oriented x4. LABORATORY DATA: Labs showed normal electrolytes. Creatinine of 0.59. Anion gap 11. Beta-hydroxybutyrate 2.19. Calcium 9.4. Glycemia is ranging from 252 to 459. Urine culture came back more than 100,000 colonies of normal urogenital karis including yeast. IMPRESSION: Diabetic ketoacidosis with residual beta-hydroxybutyrate in the blood. Her glycemia is improving daily. She is down from 400s to 200s. We are going to increase her insulin Lantus to 30 units twice a day along with aggressive sliding scale. We will continue gentle hydration and she should be able to go home in the next 24 to 48 hours. Job ID: [id number]
[2018-12-01] MEDS: Insulin Glargine 30 UNITS in Pre-Filled Syringe 1 EACH SC SCH (21:44)
[2018-12-02 06:12] LABS: Anion Gap 11 mmol/L (10-20); BUN (Urea Nitrogen) 8 mg/dL (7.0-18.7); Calc. Creatinine Clearance 183 mL/min (70-130); Carbon Dioxide 25 mmol/L (22-29); Chloride 107 mmol/L (98-107); Estimated GFR-MDRD Greater than 90; Glucose 250 mg/dL (70-105); Potassium 3.6 mmol/L (3.5-5.1); Sodium 139 mmol/L (136-145)
[2018-12-02] MEDS: HumaLOG 300 UNITS/3 ML VIAL SC PRN ×2 (06:27→11:48)
[2018-12-02 07:54] VITALS: BP 104/58; TEMP 98.3
[2018-12-02] MEDS: Enoxaparin Sodium 40 MG/0.4 ML SYRINGE SC SCH (08:14)
[2018-12-02] MEDS: Insulin Glargine 30 UNITS in Pre-Filled Syringe 1 EACH SC SCH (08:14)
[2018-12-02] MEDS: Famotidine 20 MG TAB PO SCH (08:14)
[2018-12-02] MEDS ORDERED: Insulin Glargine 30 UNITS in Pre-Filled Syringe 1 EACH SC SCH ×2 (09:00→09:15)
[2018-12-02] MEDS ORDERED: metFORMIN 500 MG TAB PO SCH (09:00)
--- NOTE | 2018-12-02 11:58 | PDOC.EVN ---
Event Note - Event Note Event Note: Patient seen and examined. For discharge today. Disharge summary dictated. #[id number]
--- NOTE | 2018-12-02 12:30 | DIS ---
DATE OF ADMISSION: 11/29/2018 DATE OF DISCHARGE: 12/02/2018 PRIMARY CARE PHYSICIAN: Alvaro Quezada. DISCHARGE DIAGNOSES: 1. Diabetic ketoacidosis. 2. Uncontrolled diabetes mellitus with hemoglobin A1c of 15. 3. Metabolic acidosis. 4. Dehydration. HOSPITAL COURSE: A 23-year-old female with known history of diabetes, who was admitted due to generalized weakness and ill feeling associated with nausea and vomiting and hyperglycemia. The patient was found to have DKA and was subsequently admitted and started on insulin infusion IV fluid. Electrolytes were monitored and corrected as appropriate. Hemoglobin A1c came back at 15. With closure of anion gap, insulin infusion was transitioned to subcutaneous insulin and was subsequently optimized to get adequate blood sugar control. The patient remained stable and was subsequently discharged. PHYSICAL EXAMINATION: VITAL SIGNS: Temperature 98.3, pulse 84, respiratory rate 16, SpO2 of 100 on room air, and blood pressure is 104/58. GENERAL: Young lady in no distress. Afebrile. Anicteric. Acyanotic. HEENT: Normocephalic, atraumatic. Pupils are reacting to light. Oral mucosa is moist. CARDIOVASCULAR: Regular rhythm and rate with normal. heart sounds one and two. RESPIRATORY: Good air entry bilaterally with no crackle or rhonchi or use of accessory muscles. GI: Abdomen is full, soft, nontender, nondistended with normal bowel sounds. EXTREMITIES: Grossly normal looking, atraumatic with no edema or erythema. NEUROLOGIC: Conscious, alert, oriented x3 with appropriate mental status. Cranial nerves 2 through 12 are intact. DISCHARGE DISPOSITION: Home. DISCHARGE CONDITION: Improved. FOLLOWUP: The patient is to follow with PCP in 5 to 7 days. DISCHARGE MEDICATIONS: 1. Humalog 0 to 13 units according to a sliding scale provided to the patient. 2. Lantus 60 units subcutaneously daily. 3. Metformin 500 mg p.o. b.i.d. TIME SPENT: This discharge took more than 38 minutes. Job ID: [id number]
== END 2018-12-02 12:42 | disposition home or self-care (01) | DRG 638 ==
LOC: ERS 22:38 → IMCU/EMU 11-29 01:13 → ONC 11-29 14:46
PROVIDERS: ADMIT Hospitalist; ATTEND Hospitalist
DX: E11.10 Type 2 diabetes mellitus with ketoacidosis without coma (principal); N39.0 Urinary tract infection, site not specified; E87.1 Hypo-osmolality and hyponatremia; F41.9 Anxiety disorder, unspecified; E86.0 Dehydration
CPT/HCPCS: 36415; 36416; 80048; 80053; 81003; 81015; 82010; 82330; 82803; 83036; 83690; 83735; 84100; 84703; 85025; 87086; 93005; 96361; 96365; 96366; 96375; J0696; J1650; J1815; J2405; J3490

== ENCOUNTER 2018-12-26 03:54 | Inpatient (IN) | payer SELFPAY ==
[2018-12-26 05:00] LABS: #Basophils 0.1 thou/uL (0.0-0.2); #Eosinphils 0.1 thou/uL (0.0-0.7); #Lymphocytes 2.4 thou/uL (1.20-3.40); #Monocytes 0.8 thou/uL (0.11-0.59); #Neutrophils 12.7 thou/uL (1.40-6.50); %Basophils 0.6 % (0.0-1.0); %Eosinophils 0.4 % (0.0-10.0); %Lymphocytes 14.7 % (21.0-51.0); %Monocytes 5.1 % (0.0-10.0); %Neutrophils 79.2 % (42.0-75.0); Hemoglobin 16.9 g/dL (12.0-16.0); Mean Corpuscular HGB CONC 33.3 g/dL (32.0-36.0); Mean Corpuscular Hemoglobin 31.8 pg (27.0-31.0); Mean Corpuscular Volume 95.5 fL (78.0-98.0); Mean Platelet Volume 9.7 fL (7.4-10.4); Platelet Count 305 thou/uL (130-400); RBC Distribution Width 11.9 % (11.5-14.5); White Blood Cell (WBC) Count 16.1 thou/uL (4.8-10.8)
[2018-12-26 05:08] LABS: BHCG - Serum Negative (NEGATIVE); Pregs Control Background? CLEAR/WHITE (CLR/WHITE); Pregs Control Bar Appear? YES (CONTROL BAR)
[2018-12-26 05:23] LABS: ALT (SGPT) 10 U/L (8-55); AST (SGOT) 6 U/L (5-34); Albumin 5.2 g/dL (3.5-5.0); Alkaline Phosphatase 143 U/L (40-150); BUN (Urea Nitrogen) 8 mg/dL (7.0-18.7); Bilirubin, Total 0.3 mg/dL (0.2-1.2); Calc. Creatinine Clearance 0 mL/min (70-130); Calcium 9.9 mg/dL (7.8-10.44); Chloride 99 mmol/L (98-107); Estimated GFR-MDRD 46; Globulin 4.1 g/dL (2.4-3.5); Glucose 365 mg/dL (70-105); Lipase Less than 4 U/L (8-78); Potassium 4.3 mmol/L (3.5-5.1); Protein, Total 9.3 g/dL (6.0-8.3); Sodium 132 mmol/L (136-145)
[2018-12-26 05:36] LABS: Carbon Dioxide Less than 8 mmol/L (22-29)
[2018-12-26] MEDS ORDERED: Ondansetron PF 4 MG/2 ML Vial ONE (05:39)
[2018-12-26 06:08] LABS: Magnesium 2.2 mg/dL (1.6-2.6); Phosphorus 3.5 mg/dL (2.3-4.7)
[2018-12-26] MEDS ORDERED: Insulin Regular 100 units/100 ml in NS IVPB SCH (06:15)
[2018-12-26] MEDS ORDERED: D5 1/2 NS w/20 mEq KCL 1,000 ML IV PRN (06:21)
[2018-12-26] MEDS ORDERED: Dextrose 5 %-0.45 % NaCl 1,000 ML IV PRN ×2 (06:21→12:22)
[2018-12-26] MEDS ORDERED: Sodium Chloride 0.9% 1,000 ML IV PRN ×8 (06:21→12:22)
[2018-12-26] MEDS ORDERED: CCU Electrolyte Replacement 1 EACH IVPB SCH (06:21)
[2018-12-26] MEDS ORDERED: NS 0.9% w/ 20 MEQ KCL 1,000 ML IV PRN ×4 (06:21→12:22)
[2018-12-26 06:22] LABS: Base Excess-Venous -25.2 mmol/L (-2.0 to 3.0); Bicarbonate (HCO3v) 5.3 mmol/L (22.0-28.0); Calcium, Ionized 1.18 mmol/L (See Comments:); Chloride 112 mmol/L (98-107); Hemoglobin - Calc 20.4 g/dL (12.0-16.0); Potassium 5.3 mmol/L (3.5-5.1); Sodium 133 mmol/L (138-145); vO2 Saturation-calc 38.3 % (60.0-85.0)
[2018-12-26] MEDS ORDERED: Magnesium Oxide 400 MG TAB PO PRN ×2 (06:25)
[2018-12-26] MEDS ORDERED: Potassium Chloride 40 MEQ in Premix Bag 1 BAG IVPB PRN (06:25)
[2018-12-26] MEDS ORDERED: Potassium Phosphate 9 MMOL in Sodium Chloride 0.9% 100 ML IVPB PRN (06:25)
[2018-12-26] MEDS ORDERED: Potassium Phosphate 15 MMOL in Sodium Chloride 0.9% 250 ML 250 ML IV PRN (06:25)
[2018-12-26] MEDS ORDERED: Potassium Chloride 20 MEQ TAB PO PRN (06:25)
[2018-12-26] MEDS ORDERED: Potassium Chloride 40 MEQ in Sodium Chloride 0.9% 250 ML 250 ML IVPB PRN (06:25)
[2018-12-26] MEDS ORDERED: PHOS-NAK 1 PKT PACK PO PRN ×2 (06:25)
[2018-12-26] MEDS ORDERED: CCU ELECTROLYTE REPLACEMENT PROTOCOL FS PRN (06:25)
[2018-12-26] MEDS ORDERED: Magnesium 2 GM/50 ML 2 GM in Premix Bag 1 BAG IVPB PRN (06:25)
[2018-12-26] MEDS ORDERED: Potassium Phosphate 12 MMOL in Sodium Chloride 0.9% 250 ML 250 ML IV PRN (06:25)
[2018-12-26] MEDS ORDERED: Sodium Bicarbonate 2.5 MEQ/5 ML VIAL ONE (06:26)
[2018-12-26] MEDS ORDERED: Sodium Bicarb 50 MEQ/50 ML VIAL ONE (06:27)
[2018-12-26] MEDS ORDERED: HUMULIN R 100 UNITS in Sodium Chloride 0.9% 100 ML IVPB SCH ×2 (06:30→12:22)
[2018-12-26] MEDS ORDERED: cefTRIAXone\\ROCEPHIN 1 GM VIAL ONE (06:43)
[2018-12-26 07:08] LABS: BUN (Urea Nitrogen) 8 mg/dL (7.0-18.7); Calc. Creatinine Clearance 0 mL/min (70-130); Calcium 9.1 mg/dL (7.8-10.44); Chloride 105 mmol/L (98-107); Estimated GFR-MDRD 62; Glucose 372 mg/dL (70-105); Potassium 4.7 mmol/L (3.5-5.1); Sodium 134 mmol/L (136-145)
[2018-12-26 07:14] LABS: Carbon Dioxide Less than 8 mmol/L (22-29)
[2018-12-26 08:17] VITALS: BMI 29.1
[2018-12-26 08:47] LABS: Troponin I 0.015 ng/mL (< 0.028)
--- NOTE | 2018-12-26 08:51 | RAD ---
CHEST 1 VIEW: HISTORY: Chest pain. Vomiting. COMPARISON: None. FINDINGS: Normal cardiac silhouette. Lungs and pleural spaces are clear. No pneumothorax or osseous abnormali ties. IMPRESSION: No acute cardiopulmonary process. POS: ROBERT
--- NOTE | 2018-12-26 11:49 | CON ---
DATE OF CONSULTATION: 12/26/2018 CONSULTING PHYSICIAN: Hospitalist. REASON FOR CONSULTATION: DKA. HISTORY OF PRESENT ILLNESS: This is a 23-year-old female, who has type 1 diabetes mellitus. She had decreased her insulin intake because she cannot afford the medication. Over the last 24 hours, she has developed severe anxiety, nausea, and vomiting. She has had polyuria. She was hospitalized with DKA with a low pH. She now feels better after fluid resuscitation and insulin. PAST MEDICAL HISTORY: Diabetes mellitus with one previous episode of DKA in the hospital. PAST SURGICAL HISTORY: None. PSYCHIATRIC HISTORY: Remarkable for anxiety. SOCIAL HISTORY: Denies smoking cigarettes or using drugs, but last history and physical indicates she was smoking marijuana and cigarettes. Denies alcohol use. FAMILY MEDICAL HISTORY: Remarkable for diabetes. ALLERGIES: NONE. MEDICATIONS: Levemir insulin. REVIEW OF SYSTEMS: Twelve-point review of systems is otherwise negative. PHYSICAL EXAMINATION: VITAL SIGNS: Temperature 98, pulse 124, blood pressure 91/50, O2 saturation 99%. GENERAL: She is awake and alert, in no distress. HEENT: Pupils are reactive. Sclerae are icteric. Oropharynx is clear. NECK: No adenopathy or JVD. CHEST: Clear to auscultation without wheezing or rhonchi. CARDIAC: S1 and S2. Regular without murmur. ABDOMEN: Soft and nontender to palpation. EXTREMITIES: No clubbing, cyanosis, or edema. Notable ketosis on her breath. LABORATORY DATA: White blood cell count 16.1, hematocrit 50, platelet count 305. Sodium 134, potassium 4.7, chloride 105, CO2 less than 8, BUN 8, creatinine 1.1, glucose 243. Beta-hydroxybutyrate was 11.2. ASSESSMENT: Diabetic ketoacidosis - secondary to noncompliance, under medication, inability to secure healthcare resources. PLAN: The patient is being treated by the DKA protocol, seems to be doing well with that. Electrolytes are being checked. She likely needs to see Case Management before discharge to see if she can be helped with Medicaid or some other type of resources. Job ID: [id number]
[2018-12-26] MEDS ORDERED: CCU Electrolyte Replacement 1 EACH IVPB ONE (12:22)
[2018-12-26] MEDS ORDERED: Acetaminophen 325 MG TAB PO PRN (12:22)
[2018-12-26] MEDS ORDERED: Ondansetron ODT 4 MG TAB PO PRN (12:22)
[2018-12-26 12:52] LABS: BUN (Urea Nitrogen) 4 mg/dL (7.0-18.7); Calc. Creatinine Clearance 118 mL/min (70-130); Calcium 8.1 mg/dL (7.8-10.44); Chloride 109 mmol/L (98-107); Estimated GFR-MDRD 74; Glucose 215 mg/dL (70-105); Potassium 4.3 mmol/L (3.5-5.1); Sodium 130 mmol/L (136-145)
[2018-12-26 12:56] LABS: Carbon Dioxide Less than 8 mmol/L (22-29)
[2018-12-26] MEDS: D5 1/2 NS w/20 mEq KCL 1,000 ML IV PRN ×3 (13:00→20:43)
--- NOTE | 2018-12-26 13:26 | HP ---
[facility] REASON FOR AD[facility]ION: [facility]. The patient recently discharged on 12/02/2018, after an episode of diabetic ketoacidosis. The patient states she has had diabetes since July. She had an anxiety attack yesterday. Nausea and vomiting x4. No abdominal pain. No diarrhea. She was brought to the emergency room, where she was seen and examined and placed in Critical Care with diabetic ketoacidosis. PAST MEDICAL HISTORY: Diabetes mellitus type 1 since July of this year and anxiety attacks. MEDICATIONS: She was discharged from the hospital on Lantus 60 units subcu, which she takes at night; sliding scale, which she is not taking; and metformin 500 mg twice a day, which she is not taking. ALLERGIES: NO KNOWN DRUG ALLERGIES. PAST SURGICAL HISTORY: None. SOCIAL HISTORY: Single. Currently uses marijuana, tobacco. Denies alcohol. CODE STATUS: Full. FAMILY HISTORY: Mother is diabetic. REVIEW OF SYSTEMS: GENERAL: No headaches, dizziness, or fainting. No fever or chills. HEENT: Eyes, no double vision, blurred vision, flashing light. Ear, nose, and throat; no ear pain or drainage. No nasal bleeding. No trouble swallowing. CARDIAC: No chest pain, orthopnea, or paroxysmal nocturnal dyspnea. RESPIRATION: She was short of breath yesterday during her panic attack. No wheezing or cough. GASTROINTESTINAL: See present illness. Nausea and vomiting x4 yesterday with no hematemesis. No abdominal pain. No diarrhea. GENITOURINARY: No hematuria or dysuria. MUSCULOSKELETAL: No pain or swelling in arms or legs. NEUROLOGIC: No strokes, seizures, or focal weakness. PSYCHIATRIC: She has had a lot of anxiety over the past year. Her grandmother has Alzheimer's. She gets stressed. SKIN: No bruising, bleeding, or rash. HEME/LYMPH: No tender or swollen lymph nodes in axilla, inguinal, or cervical area. PHYSICAL EXAMINATION: VITAL SIGNS: Pulse is elevated at about 115 to 120, blood pressure is running 120/80, and respirations are 15 to 21. HEAD, EYES, EARS, NOSE, AND THROAT: Revealed pupils are equal, round, and reactive to light. Extraocular movements are intact. Sclerae are white. Tympanic membranes are clear. Nose is clear. Oral mucous membranes are wet. Dental hygiene is good. NECK: Supple without jugular venous distention, adenopathy, or thyromegaly. CHEST: Clear to auscultation and percussion. HEART: Irregular rate and rhythm. Tachycardic. No murmurs. No gallops. ABDOMEN: Soft. Bowel sounds are normal. There is no hepatosplenomegaly. No mass. No rebound. EXTREMITIES: Reveal no cyanosis, clubbing, or edema. PULSES: Carotid, radial, femoral, and dorsalis pedis pulses intact. SKIN: Warm and dry without bruises or rash. HEME/LYMPH: No tender or swollen lymph nodes in axilla, inguinal, or cervical area. NEUROLOGIC: Cranial nerves 2 through 12 are intact. Moves all extremities. Toes downgoing. Chest x-ray was done. No cardiomegaly, CHF, or infiltrate reviewed by me. EKG, regular sinus rhythm, reviewed by me. LABORATORY DATA: White count 16.1, hemoglobin 16.9, hematocrit 50.6, and platelet count 305,000. Sodium 133, potassium 4.3, CO2 less than 8, BUN 8, creatinine 1.42, blood sugar 365, lactic acid 2.6. Liver function tests normal. ADMITTING DIAGNOSES: Diabetic ketoacidosis, noncompliance with medical therapy, acute renal failure, lactic acidosis, nausea, vomiting, and anxiety. PLAN: DKA protocol. Once her diabetic ketoacidosis is resolved, we will attempt to impress on her the need for a sliding scale insulin with meals. We will of course continue the metformin and check a lactate level. Job ID: [id number]
[2018-12-26 17:37] LABS: Anion Gap 12 mmol/L (10-20); BUN (Urea Nitrogen) 4 mg/dL (7.0-18.7); Calc. Creatinine Clearance 144 mL/min (70-130); Calcium 8.5 mg/dL (7.8-10.44); Carbon Dioxide 11 mmol/L (22-29); Chloride 113 mmol/L (98-107); Estimated GFR-MDRD Greater than 90; Glucose 126 mg/dL (70-105); Potassium 3.9 mmol/L (3.5-5.1); Sodium 132 mmol/L (136-145)
[2018-12-26 20:53] LABS: Anion Gap 15 mmol/L (10-20); BUN (Urea Nitrogen) Less than 4 mg/dL (7.0-18.7); Calc. Creatinine Clearance 135 mL/min (70-130); Calcium 8.5 mg/dL (7.8-10.44); Carbon Dioxide 10 mmol/L (22-29); Chloride 109 mmol/L (98-107); Estimated GFR-MDRD 87; Glucose 234 mg/dL (70-105); Potassium 3.8 mmol/L (3.5-5.1); Sodium 130 mmol/L (136-145)
[2018-12-27] MEDS: D5 1/2 NS w/20 mEq KCL 1,000 ML IV PRN ×2 (01:17→05:38)
[2018-12-27 05:37] LABS: #Eosinphils 0.1 thou/uL (0.0-0.7); #Lymphocytes 1.9 thou/uL (1.20-3.40); #Monocytes 0.7 thou/uL (0.11-0.59); #Neutrophils 4.3 thou/uL (1.40-6.50); %Basophils 0.4 % (0.0-1.0); %Eosinophils 1.3 % (0.0-10.0); %Lymphocytes 27.1 % (21.0-51.0); %Monocytes 9.7 % (0.0-10.0); %Neutrophils 61.4 % (42.0-75.0); Hemoglobin 12.4 g/dL (12.0-16.0); Mean Corpuscular Hemoglobin 31.8 pg (27.0-31.0); Mean Corpuscular Volume 93.7 fL (78.0-98.0); Mean Platelet Volume 9.3 fL (7.4-10.4); Platelet Count 180 thou/uL (130-400); RBC Distribution Width 11.9 % (11.5-14.5)
[2018-12-27 05:52] LABS: Anion Gap 10 mmol/L (10-20); BUN (Urea Nitrogen) Less than 4 mg/dL (7.0-18.7); Calc. Creatinine Clearance 158 mL/min (70-130); Calcium 8.8 mg/dL (7.8-10.44); Carbon Dioxide 17 mmol/L (22-29); Chloride 110 mmol/L (98-107); Estimated GFR-MDRD Greater than 90; Glucose 149 mg/dL (70-105); Potassium 3.2 mmol/L (3.5-5.1); Sodium 134 mmol/L (136-145)
[2018-12-27] MEDS ORDERED: Dextrose 5% in Water 1,000 ML IV PRN (07:15)
[2018-12-27] MEDS ORDERED: Insulin Regular 300 UNITS/3 ML VIAL SC PRN (07:15)
[2018-12-27] MEDS ORDERED: Dextrose 50% Abboject 50 ML SYRINGE SLOW IVP PRN (07:15)
--- NOTE | 2018-12-27 07:23 | PDOC.HOSPP ---
- Subjective Encounter Date: 12/27/18 Encounter Time: 07:22 Subjective: much better, no nausea, abd pain , etc - Objective Vital Signs & Weight: Vital Signs (12 hours) Temp Pulse Ox 12/27/18 04:00 98.2 F 12/27/18 03:20 99 12/27/18 00:00 98.5 F 12/26/18 20:00 98.3 F 99 Weight Weight 175 lb 0.752 oz Most Recent Monitor Data Heart Rate from ECG 85 NIBP 101/67 NIBP BP-Mean 78 Respiration from ECG 24 SpO2 98 I&O: 12/26/18 12/27/18 12/28/18 06:59 06:59 06:59 Intake Total 9563.1 Output Total 6750 Balance 2813.1 Result Diagrams: 12/27/18 05:06 12/27/18 05:06 Additional Labs: Accuchecks 12/27/18 12/27/18 12/27/18 06:06 05:08 04:19 POC Glucose 147 H 139 H 164 H 12/27/18 12/27/18 12/27/18 03:11 02:18 01:21 POC Glucose 167 H 205 H 208 H 12/27/18 12/26/18 12/26/18 00:08 22:56 21:46 POC Glucose 238 H 237 H 217 H 12/26/18 12/26/18 12/26/18 20:43 19:41 18:48 POC Glucose 245 H 215 H 205 H 12/26/18 12/26/18 12/26/18 17:48 16:57 15:50 POC Glucose 141 H 122 H 131 H 12/26/18 12/26/18 12/26/18 14:58 14:04 13:40 POC Glucose 155 H 181 H 199 H 12/26/18 12/26/18 12/26/18 12:50 11:47 10:31 POC Glucose 229 H 212 H 224 H 12/26/18 12/26/18 12/26/18 09:30 08:27 07:28 POC Glucose 217 H 243 H 319 H - Exam Neck: no JVD Heart: RRR, no murmur Respiratory: CTAB Gastrointestinal: soft, non-tender, normal bowel sounds Extremities: no edema Hosp A/P (1) DKA (diabetic ketoacidoses) Code(s): E11.10 - TYPE 2 DIABETES MELLITUS WITH KETOACIDOSIS WITHOUT COMA Status: Acute Qualifiers: Diabetes mellitus type: type 1 Diabetes mellitus complication detail: without coma Qualified Code(s): E10.10 - Type 1 diabetes mellitus with ketoacidosis without coma (2) Acute renal failure Status: Acute Qualifiers: Acute renal failure type: unspecified Qualified Code(s): N17.9 - Acute kidney failure, unspecified (3) Nausea & vomiting Code(s): R11.2 - NAUSEA WITH VOMITING, UNSPECIFIED Status: Acute Qualifiers: Vomiting type: unspecified (4) Anxiety Code(s): F41.9 - ANXIETY DISORDER, UNSPECIFIED Status: Chronic - Plan DC DKA proyocol levemir 60 units HS metformin 500 bid accu q4h, mod SS advance diet BMP q am
[2018-12-27] MEDS: metFORMIN 500 MG TAB PO SCH ×2 (08:07→20:47)
[2018-12-27] MEDS: Enoxaparin Sodium 40 MG/0.4 ML SYRINGE SC SCH (08:07)
[2018-12-27] MEDS: HumaLOG 300 UNITS/3 ML VIAL SC PRN ×2 (12:49→17:49)
[2018-12-27] MEDS: Zolpidem Tartrate 5 MG TAB PO PRN (20:47)
[2018-12-27] MEDS: Insulin Glargine 60 UNITS in Pre-Filled Syringe 1 EACH SC SCH (20:48)
[2018-12-28] MEDS: HumaLOG 300 UNITS/3 ML VIAL SC PRN ×3 (00:56→17:56)
[2018-12-28 06:01] LABS: Anion Gap 14 mmol/L (10-20); BUN (Urea Nitrogen) Less than 4 mg/dL (7.0-18.7); Calc. Creatinine Clearance 176 mL/min (70-130); Calcium 9.1 mg/dL (7.8-10.44); Carbon Dioxide 17 mmol/L (22-29); Chloride 106 mmol/L (98-107); Estimated GFR-MDRD Greater than 90; Glucose 182 mg/dL (70-105); Potassium 3.4 mmol/L (3.5-5.1); Sodium 134 mmol/L (136-145)
[2018-12-28] MEDS: metFORMIN 500 MG TAB PO SCH ×2 (08:16→20:41)
[2018-12-28] MEDS: Enoxaparin Sodium 40 MG/0.4 ML SYRINGE SC SCH (08:16)
[2018-12-28] MEDS ORDERED: Potassium Chloride 20 MEQ TAB PO SCH (10:00)
--- NOTE | 2018-12-28 12:00 | PDOC.HOSPP ---
- Subjective Encounter Date: 12/28/18 Encounter Time: 08:30 Subjective: Patient seen and examined. No new complaints. No overnight events - Objective Vital Signs & Weight: Vital Signs (12 hours) Temp Pulse Resp BP Pulse Ox 12/28/18 08:00 97 12/28/18 07:57 98.1 F 79 16 95/57 L 97 Weight Weight 175 lb 0.752 oz Most Recent Monitor Data Heart Rate from ECG 89 NIBP 103/64 NIBP BP-Mean 77 Respiration from ECG 10 SpO2 100 I&O: 12/27/18 12/28/18 12/29/18 06:59 06:59 06:59 Intake Total 9563.1 1335 Output Total 6750 700 Balance 2813.1 635 Result Diagrams: 12/27/18 05:06 12/28/18 05:02 Additional Labs: Accuchecks 12/28/18 12/28/18 12/27/18 05:24 00:48 19:32 POC Glucose 170 H 318 H 190 H 12/27/18 12/27/18 16:45 11:47 POC Glucose 219 H 243 H ROS - Review of Systems ENT: denies: ear pain, ear discharge, nose pain, nose discharge, nose congestion , mouth pain, mouth swelling, throat pain, throat swelling, other Respiratory: denies: cough, dry, shortness of breath, hemoptysis, SOB with excertion, pleuritic pain, sputum, wheezing, other Cardiovascular: denies: chest pain, palpitations, orthopnea, paroxysmal noc. dyspnea, edema, light headedness, other Gastrointestinal: denies: nausea, vomitting, abdominal pain, diarrhea, constipation, melena, hematochezia, other Genitourinary: denies: dysuria, frequency, incontinence, hematuria, retention, other Musculoskeletal: denies: neck pain, shoulder pain, arm pain, back pain, hand pain, leg pain, foot pain, other Skin: denies: rash, lesions, adis, bruising, other - Medication Medications: Active Medications Generic Name Dose Route Start Last Admin Trade Name Freq PRN Reason Stop Dose Admin Enoxaparin Sodium 40 mg 12/27/18 09:00 12/28/18 08:16 Lovenox SC 40 mg 0900 LEROY Administration Insulin Glargine 60 units/ 0.6 mls @ 0 mls/hr 12/27/18:00 12/27/18 20:48 Miscellaneous Medication SC 0.6 mls HS LEROY Administration Insulin Human Lispro 0 units 12/27/18 07:15 12/28/18 11:56 Humalog SC 4 unit .MODERATE SLIDING SC PRN Administration Moderate Correctional Scale Metformin HCl 500 mg 12/27/18 09:00 12/28/18 08:16 Glucophage PO 500 mg BID LEROY Administration Ondansetron HCl 4 mg 12/26/18 12:22 12/27/18 17:53 Zofran Odt PO 4 mg Q6H PRN Administration Nausea/Vomiting Potassium Chloride 40 meq 12/28/18 10:00 12/28/18 10:48 K-Dur PO 12/28/18 12:00 40 meq NOW LEROY Administration Zolpidem Tartrate 5 mg 12/26/18 12:22 12/27/18 20:47 Ambien PO 5 mg HSPRN PRN Administration Insomnia Hosp A/P (1) Acute renal failure Status: Resolved Qualifiers: Acute renal failure type: unspecified Qualified Code(s): N17.9 - Acute kidney failure, unspecified (2) Nausea & vomiting Code(s): R11.2 - NAUSEA WITH VOMITING, UNSPECIFIED Status: Resolved Qualifiers: Vomiting type: unspecified (3) Anxiety Code(s): F41.9 - ANXIETY DISORDER, UNSPECIFIED Status: Chronic (4) DKA (diabetic ketoacidoses) Code(s): E11.10 - TYPE 2 DIABETES MELLITUS WITH KETOACIDOSIS WITHOUT COMA Status: Resolved Qualifiers: Diabetes mellitus type: type 1 Diabetes mellitus complication detail: without coma Qualified Code(s): E10.10 - Type 1 diabetes mellitus with ketoacidosis without coma (5) Hyponatremia Code(s): E87.1 - HYPO-OSMOLALITY AND HYPONATREMIA Status: Acute (6) Diabetes type 1, controlled Code(s): E10.9 - TYPE 1 DIABETES MELLITUS WITHOUT COMPLICATIONS Status: Chronic (7) Hypokalemia Code(s): E87.6 - HYPOKALEMIA Status: Acute - Plan old records reviewed/req medication reviewed as below symptomatic treatment replace potassium adjust insulin dose
[2018-12-28] MEDS: Insulin Glargine 60 UNITS in Pre-Filled Syringe 1 EACH SC SCH (20:41)
[2018-12-28] MEDS: Zolpidem Tartrate 5 MG TAB PO PRN (22:45)
[2018-12-29] MEDS: HumaLOG 300 UNITS/3 ML VIAL SC PRN (00:24)
[2018-12-29 07:27] VITALS: BP 106/70; TEMP 98.2
[2018-12-29 07:30] LABS: Anion Gap 13 mmol/L (10-20); BUN (Urea Nitrogen) 5 mg/dL (7.0-18.7); Calc. Creatinine Clearance 205 mL/min (70-130); Calcium 9.4 mg/dL (7.8-10.44); Carbon Dioxide 26 mmol/L (22-29); Chloride 101 mmol/L (98-107); Estimated GFR-MDRD Greater than 90; Glucose 120 mg/dL (70-105); Potassium 3.6 mmol/L (3.5-5.1); Sodium 136 mmol/L (136-145)
[2018-12-29] MEDS: metFORMIN 500 MG TAB PO SCH (08:25)
[2018-12-29] MEDS: Enoxaparin Sodium 40 MG/0.4 ML SYRINGE SC SCH (08:25)
--- NOTE | 2018-12-29 11:23 | DIS ---
DATE OF ADMISSION: 12/26/2018 DATE OF DISCHARGE: 12/29/2018 PRIMARY CARE PHYSICIAN: Alvaro Quezada. DISCHARGE DISPOSITION: Home. PRIMARY DISCHARGE DIAGNOSES: 1. Diabetic ketoacidosis, resolved. 2. Hypokalemia. 3. Hyponatremia. 4. Acute kidney injury, resolved. 5. Nausea and vomiting, resolved. SECONDARY DISCHARGE DIAGNOSES: 1. Diabetes, type 1. 2. Medical noncompliance. PRIMARY PROCEDURE/OPERATION: None. RADIOLOGICAL INVESTIGATION: Chest x-ray normal. SIGNIFICANT LABORATORY DATA: WBC 7.0, hemoglobin 12.4, and platelets 180. Sodium 136, creatinine 0.54, potassium 3.6, and calcium 9.4. DISCHARGE MEDICATIONS: 1. Humalog insulin as per sliding scale. 2. Lantus insulin 60 units subcu daily. 3. Metformin 500 mg p.o. b.i.d. CONTRAINDICATION: None. CODE STATUS: Full code. INPATIENT RECRUITING CONSULTANT: None. ALLERGIES: NO KNOWN DRUG ALLERGIES. DISCHARGE PLAN: Posthospital, the patient will follow up with primary care physician in 1 week. HOSPITAL COURSE: A 23-year-old female who has type 1 diabetes, and she is on insulin. She has recurrent admission for DKA due to her noncompliance. The patient was admitted by Dr. Cervantes. Please see his H and P for further details. On admission, the patient had leukocytosis, acute kidney injury, abnormal electrolytes, and clinical picture consistent with DKA. The patient was admitted to intermediate care unit where she was treated with IV fluid and DKA protocol treatment. The patient was treated with IV fluid insulin, and her DKA resolved. Her kidney failure improved. Her leukocytosis resolved. Her abnormal electrolytes were corrected while in hospital. Subsequently, she was transferred to medical floor where she did okay, and we continued all her previous insulin doses. We provided the patient education about compliance with medication. PHYSICAL EXAMINATION: I have seen and examined the patient at bedside today. VITAL SIGNS: Currently, temperature 98.2, pulse 80, respiratory rate 16, saturation 96% on room air, and blood pressure 106/70. Weight 175 pounds. GENERAL: The patient is currently alert, oriented, no acute distress. HEENT: Head, normocephalic and atraumatic. LUNGS: Clear to auscultation without any rhonchi or rales. CARDIAC: S1, S2. Regular without any murmur. No gallop. No rub. ABDOMEN: Soft and benign. EXTREMITIES: No edema. NEUROLOGIC: Nonfocal examination. Overall, the patient is medically stable for discharge today. Job ID: [id number]
--- NOTE | 2018-12-30 14:42 | EKG ---
Test Reason : Blood Pressure : / mmHG Vent. Rate : 132 BPM Atrial Rate : 132 BPM P-R Int : 000 ms QRS Dur : 080 ms QT Int : 390 ms P-R-T Axes : 000 048 067 degrees QTc Int : 577 ms Sinus tachycardia Nonspecific T wave abnormality Abnormal ECG Confirmed by GURINDER BUTLER M.D. ([id number]), manager editorial MATEUS MOYER ([id number]) on 12/30/2018 2:42:21 PM Referred By: Confirmed By:GURINDER BUTLER M.D.
== END 2018-12-29 09:29 | disposition home or self-care (01) | DRG 638 ==
LOC: ERS 03:54 → CCU 07:17 → T4-B 12-27 09:19
PROVIDERS: ADMIT Hospitalist; ATTEND Hospitalist
DX: E10.10 Type 1 diabetes mellitus with ketoacidosis without coma (principal); N17.9 Acute kidney failure, unspecified; E87.1 Hypo-osmolality and hyponatremia; F41.9 Anxiety disorder, unspecified; F17.210 Nicotine dependence, cigarettes, uncomplicated; E87.6 Hypokalemia; Z79.4 Long term (current) use of insulin; Z91.14 Patient's other noncompliance with medication regimen
CPT/HCPCS: 36415; 36416; 71045; 80048; 80053; 82010; 82330; 82533; 82803; 83605; 83690; 83735; 84100; 84443; 84484; 84703; 85025; 93005; 96360; 96361; 96365; 96368; 96375; J0696; J1650; J1815; J2405; J3480; J3490; Q0162

== ENCOUNTER 2019-06-24 10:57 | Inpatient (IN) | payer OTHER, SELFPAY ==
[2019-06-24 11:39] LABS: #Basophils 0.1 thou/uL (0.0-0.2); #Eosinphils 0.1 thou/uL (0.0-0.7); #Monocytes 0.5 thou/uL (0.11-0.59); #Neutrophils 16.7 thou/uL (1.40-6.50); %Basophils 0.5 % (0.0-1.0); %Eosinophils 0.7 % (0.0-10.0); %Lymphocytes 10.1 % (21.0-51.0); %Monocytes 2.5 % (0.0-10.0); %Neutrophils 86.2 % (42.0-75.0); Hemoglobin 16.8 g/dL (12.0-16.0); Mean Corpuscular HGB CONC 33.5 g/dL (32.0-36.0); Mean Corpuscular Hemoglobin 32.4 pg (27.0-31.0); Mean Corpuscular Volume 96.8 fL (78.0-98.0); Mean Platelet Volume 9.8 fL (7.4-10.4); Platelet Count 329 thou/uL (130-400); RBC Distribution Width 12.2 % (11.5-14.5); Red Blood Cell (RBC) Count 5.19 mill/uL (4.20-5.40); White Blood Cell (WBC) Count 19.4 thou/uL (4.8-10.8)
[2019-06-24 11:42] LABS: Bacteria/HPF None Seen HPF (None Seen); Bilirubin Negative (Negative); Blood, Urine Trace (Negative); Clarity Clear (Clear); Glucose, Urine (Dipstick) Greater than 1000 mg/dL (Negative); Leukocyte Negative Leu/uL (Negative); Nitrite Negative (Negative); Protein, Urine (Dipstick) 100 mg/dL (Neg-Trace); Squamous Epithelial 0-3 HPF (0-3); Urobilinogen Normal mg/dL (Less than 2); WBC/HPF 0-3 HPF (0-3)
--- NOTE | 2019-06-24 11:47 | RAD ---
EXAM: Single view of the chest HISTORY: Nausea and vomiting; dyspnea COMPARISON: 12/26/2018 FINDINGS: Single view of the chest shows a normal sized cardiomediastinal silhouette. There is no prudencio dence of consolidation, mass, or pleural effusion. The bones are unremarkable. IMPRESSION: No evidence of acute cardiopulmonary disease
[2019-06-24] MEDS ORDERED: Ondansetron PF 4 MG/2 ML Vial ONE (11:51)
[2019-06-24 11:59] LABS: ALT (SGPT) 18 U/L (8-55); AST (SGOT) 11 U/L (5-34); Albumin 5.4 g/dL (3.5-5.0); Alkaline Phosphatase 149 U/L (40-110); BUN (Urea Nitrogen) 12 mg/dL (7.0-18.7); Bilirubin, Total 0.3 mg/dL (0.2-1.2); Calc. Creatinine Clearance 0 mL/min (70-130); Calcium 9.8 mg/dL (7.8-10.44); Chloride 100 mmol/L (98-107); Estimated GFR-MDRD 48; Glucose 415 mg/dL (70-105); Potassium 5.2 mmol/L (3.5-5.1); Protein, Total 9.4 g/dL (6.0-8.3); Sodium 134 mmol/L (136-145)
[2019-06-24 12:01] LABS: Carbon Dioxide Less than 8 mmol/L (22-29)
[2019-06-24 12:10] LABS: Pregnancy Test - Urine (BHCG) Negative (Negative); Pregu Control Background? CLEAR/WHITE (CLR/WHITE); Pregu Control Bar Appear? YES (CONTROL BAR); Specific Gravity 1.027 (1.002-1.036)
[2019-06-24 12:11] LABS: Lipase 7 U/L (8-78); Magnesium 2.2 mg/dL (1.6-2.6); Phosphorus 4.7 mg/dL (2.3-4.7)
[2019-06-24] MEDS ORDERED: Insulin Regular 100 units/100 ml in NS IVPB SCH (12:30)
[2019-06-24] MEDS ORDERED: Insulin Regular 300 UNITS/3 ML VIAL ONE (12:41)
[2019-06-24 12:59] LABS: Bicarbonate (HCO3v) 4.8 mmol/L (22.0-28.0); Calcium, Ionized 1.12 mmol/L (See Comments:); Chloride 112 mmol/L (98-107); Hemoglobin - Calc 16.9 g/dL (12.0-16.0); Potassium 6.1 mmol/L (3.5-5.1); Sodium 133 mmol/L (138-145); T. Carbon Dioxide 5.6 mmol/L (22.0-28.0); vO2 Saturation-calc 79.7 % (60.0-85.0)
[2019-06-24] MEDS ORDERED: Sodium Bicarb 50 MEQ/50 ML VIAL ONE (13:12)
[2019-06-24] MEDS ORDERED: Sodium Bicarbonate 2.5 MEQ/5 ML VIAL ONE (13:13)
[2019-06-24] MEDS ORDERED: CCU Electrolyte Replacement 1 EACH IVPB ONE (14:11)
[2019-06-24] MEDS ORDERED: NS 0.9% w/ 20 MEQ KCL 1,000 ML IV PRN ×2 (14:11)
[2019-06-24] MEDS ORDERED: Sodium Chloride 0.9% 1,000 ML IV PRN ×4 (14:11)
[2019-06-24] MEDS ORDERED: Dextrose 5 %-0.45 % NaCl 1,000 ML IV PRN (14:11)
[2019-06-24] MEDS ORDERED: Ondansetron ODT 4 MG TAB PO PRN (14:14)
[2019-06-24] MEDS ORDERED: HUMULIN R 100 UNITS in Sodium Chloride 0.9% 100 ML IVPB SCH (14:15)
[2019-06-24] MEDS ORDERED: PHOS-NAK 1 PKT PACK PO PRN ×2 (14:27)
[2019-06-24] MEDS ORDERED: Potassium Phosphate 12 MMOL in Sodium Chloride 0.9% 250 ML 250 ML IV PRN (14:27)
[2019-06-24] MEDS ORDERED: Potassium Phosphate 15 MMOL in Sodium Chloride 0.9% 250 ML 250 ML IV PRN (14:27)
[2019-06-24] MEDS ORDERED: Potassium Phosphate 9 MMOL in Sodium Chloride 0.9% 100 ML IVPB PRN (14:27)
[2019-06-24] MEDS ORDERED: Magnesium 2 GM/50 ML 2 GM in Premix Bag 1 BAG IVPB PRN (14:27)
[2019-06-24] MEDS ORDERED: Magnesium Oxide 400 MG TAB PO PRN ×2 (14:27)
[2019-06-24] MEDS ORDERED: CCU ELECTROLYTE REPLACEMENT PROTOCOL FS PRN (14:27)
[2019-06-24] MEDS ORDERED: Potassium Chloride 40 MEQ in Sodium Chloride 0.9% 250 ML 250 ML IVPB PRN (14:27)
[2019-06-24] MEDS ORDERED: Potassium Chloride 40 MEQ in Premix Bag 1 BAG IVPB PRN (14:27)
[2019-06-24] MEDS ORDERED: Potassium Chloride 20 MEQ TAB PO PRN (14:27)
[2019-06-24 15:03] LABS: BUN (Urea Nitrogen) 11 mg/dL (7.0-18.7); Calc. Creatinine Clearance 0 mL/min (70-130); Calcium 8.9 mg/dL (7.8-10.44); Chloride 109 mmol/L (98-107); Estimated GFR-MDRD 70; Glucose 280 mg/dL (70-105); Potassium 4.7 mmol/L (3.5-5.1); Sodium 138 mmol/L (136-145)
[2019-06-24 15:08] LABS: Carbon Dioxide Less than 8 mmol/L (22-29)
[2019-06-24] MEDS ORDERED: Enoxaparin Sodium 80 MG/0.8 ML SYRINGE ONE (15:24)
[2019-06-24] MEDS ORDERED: NS 0.9% w/ 20 MEQ KCL 1,000 ML IV SCH (15:45)
[2019-06-24 18:32] LABS: BUN (Urea Nitrogen) 9 mg/dL (7.0-18.7); Calc. Creatinine Clearance 0 mL/min (70-130); Calcium 8.6 mg/dL (7.8-10.44); Chloride 115 mmol/L (98-107); Estimated GFR-MDRD 85; Glucose 145 mg/dL (70-105); Potassium 4.5 mmol/L (3.5-5.1); Sodium 139 mmol/L (136-145)
[2019-06-24] MEDS: D5 1/2 NS w/20 mEq KCL 1,000 ML IV PRN ×2 (18:33→22:24)
[2019-06-24 18:45] LABS: Carbon Dioxide Less than 8 mmol/L (22-29)
[2019-06-24 19:55] VITALS: BMI 23.4
--- NOTE | 2019-06-24 20:53 | HP ---
CHIEF COMPLAINT: Nausea and vomiting. HISTORY OF PRESENT ILLNESS: This is a 23-year-old female with past medical history of DKA, who presented to the hospital with complaints of abdominal pain, nausea, and vomiting started yesterday. The patient has not been able to keep anything down since then. She also complains of some shortness of breath. Denies any cough, fever, chills, palpitations, dysuria, or dizziness. In the ER, the patient was found to be clinically dehydrated, with hyperglycemia, and metabolic acidosis with ketosis indicating the presence of DKA. PAST MEDICAL HISTORY: Diabetes mellitus type 1, insulin dependent, and anxiety. ALLERGIES: NO KNOWN DRUG ALLERGIES. PAST SURGICAL HISTORY: None. FAMILY HISTORY: Her mother is diabetic. REVIEW OF SYSTEMS: Negative except as noted in HPI. PHYSICAL EXAMINATION: GENERAL: The patient is alert and oriented x3. HEENT: Her mucosa is dry. NECK: Supple. CARDIAC: Revealed normal S1 and S2, no murmurs, rubs, or gallops, and no peripheral edema. CHEST: Clear to auscultation bilaterally. ABDOMEN: Revealed mild generalized tenderness. NEUROLOGICAL: Revealed normal cranial nerves 2 through 12 and normal motor and sensory exam. IMAGING DATA: Chest x-ray revealed no infiltrates and UA was negative for infection. LABORATORY DATA: Positive for leukocytosis with WBC count 19.4, and her chemistry panel was positive for hyponatremia with sodium level 133, hyperkalemia with potassium level 5.2, acidosis with carbon dioxide of 8 and pH of 6.9. ANGELY was also present with a creatinine level of 1.38. Sugar levels were elevated at 416 on presentation. IMPRESSION: 1. Diabetic ketoacidosis. 2. Hypovolemia. 3. Non-anion gap metabolic acidosis. 4. Acute kidney injury. 5. Hyperglycemia. 6. Nausea and vomiting. PLAN: 1. We will admit the patient to the ICU and start IV fluids, insulin drip, and electrolyte replacements. DKA protocol. 2. Please refer to the orders for further details. 3. No source of infection was identified and leukocytosis is likely reactive. 4. Check CBC with manual differential in the a.m. 5. Acute kidney injury is likely prerenal due to volume depletion. Continue IV hydration and check BMP in a.m. 6. A dose of bicarbonate was given for metabolic acidosis. Job ID: [id number]
[2019-06-24] MEDS ORDERED: FLU VACC QS2019-20(6MOS UP)/PF 60 MCG/0.5 ML SYRINGE IM ONE (21:00)
[2019-06-24] MEDS ORDERED: Prevnar 13-Val Conj/PF 0.5 ML SYRINGE IM ONE (21:00)
[2019-06-24] MEDS: Famotidine 20 MG TAB PO SCH (21:33)
[2019-06-24 22:34] LABS: Anion Gap 12 mmol/L (10-20); BUN (Urea Nitrogen) 8 mg/dL (7.0-18.7); Calc. Creatinine Clearance 96 mL/min (70-130); Calcium 8.4 mg/dL (7.8-10.44); Carbon Dioxide 12 mmol/L (22-29); Chloride 114 mmol/L (98-107); Estimated GFR-MDRD 75; Glucose 233 mg/dL (70-105); Potassium 4.3 mmol/L (3.5-5.1); Sodium 134 mmol/L (136-145)
[2019-06-25] MEDS: D5 1/2 NS w/20 mEq KCL 1,000 ML IV PRN ×2 (02:43→07:08)
[2019-06-25 04:39] LABS: Anion Gap 11 mmol/L (10-20); BUN (Urea Nitrogen) 7 mg/dL (7.0-18.7); Calc. Creatinine Clearance 120 mL/min (70-130); Calcium 8.6 mg/dL (7.8-10.44); Carbon Dioxide 14 mmol/L (22-29); Chloride 114 mmol/L (98-107); Estimated GFR-MDRD Greater than 90; Glucose 194 mg/dL (70-105); Potassium 3.5 mmol/L (3.5-5.1); Sodium 135 mmol/L (136-145)
[2019-06-25 08:21] LABS: Anion Gap 10 mmol/L (10-20); BUN (Urea Nitrogen) 7 mg/dL (7.0-18.7); Calc. Creatinine Clearance 133 mL/min (70-130); Calcium 8.4 mg/dL (7.8-10.44); Carbon Dioxide 15 mmol/L (22-29); Chloride 113 mmol/L (98-107); Estimated GFR-MDRD Greater than 90; Glucose 175 mg/dL (70-105); Potassium 3.7 mmol/L (3.5-5.1); Sodium 134 mmol/L (136-145)
[2019-06-25] MEDS ORDERED: Dextrose 5% in Water 1,000 ML IV PRN (09:54)
[2019-06-25] MEDS ORDERED: Dextrose 50% Abboject 50 ML SYRINGE SLOW IVP PRN (09:54)
[2019-06-25] MEDS ORDERED: Insulin Glargine 30 UNITS in Pre-Filled Syringe 1 EACH SC SCH (10:15)
[2019-06-25] MEDS: Enoxaparin Sodium 40 MG/0.4 ML SYRINGE SC SCH (11:14)
[2019-06-25] MEDS: Famotidine 20 MG TAB PO SCH ×2 (11:15→20:19)
[2019-06-25 13:08] LABS: Anion Gap 9 mmol/L (10-20); BUN (Urea Nitrogen) 6 mg/dL (7.0-18.7); Calc. Creatinine Clearance 129 mL/min (70-130); Calcium 8.4 mg/dL (7.8-10.44); Carbon Dioxide 18 mmol/L (22-29); Chloride 109 mmol/L (98-107); Estimated GFR-MDRD Greater than 90; Glucose 191 mg/dL (70-105); Potassium 3.9 mmol/L (3.5-5.1); Sodium 132 mmol/L (136-145)
--- NOTE | 2019-06-25 15:07 | PDOC.HOSPP ---
- Subjective Encounter Date: 06/25/19 Subjective: Feels better - Objective Vital Signs & Weight: Vital Signs (12 hours) Temp Pulse Ox 06/25/19 11:16 97.2 F L 06/25/19 08:00 100 06/25/19 07:15 97.3 F L 06/25/19 03:31 98.7 F Weight Weight 140 lb 14.006 oz Most Recent Monitor Data Heart Rate from ECG 101 NIBP 113/71 NIBP BP-Mean 85 Respiration from ECG 22 SpO2 100 I&O: 06/24/19 06/25/19 06/26/19 06:59 06:59 06:59 Intake Total 4158 1179 Output Total 1000 Balance 3158 1179 Result Diagrams: 06/24/19 11:20 06/25/19 12:11 Additional Labs: Accuchecks 06/25/19 06/25/19 06/25/19 10:55 09:24 08:19 POC Glucose 213 H 174 H 134 H 06/25/19 06/25/19 06/25/19 07:08 06:26 05:06 POC Glucose 161 H 155 H 142 H 06/25/19 06/25/19 06/25/19 04:10 03:08 02:04 POC Glucose 169 H 195 H 210 H 06/25/19 06/25/19 06/24/19 01:05 00:05 23:13 POC Glucose 232 H 224 H 224 H 06/24/19 06/24/19 06/24/19 22:10 21:11 20:09 POC Glucose 211 H 204 H 173 H 06/24/19 06/24/19 06/24/19 19:41 18:33 17:19 POC Glucose 174 H 148 H 164 H 06/24/19 06/24/19 16:45 15:08 POC Glucose 167 H 241 H Hospitalist ROS - Medication Medications: Active Medications Generic Name Dose Route Start Last Admin Trade Name Freq PRN Reason Stop Dose Admin Enoxaparin Sodium 40 mg 06/25/19 09:00 06/25/19 11:14 Lovenox SC 40 mg 0900 LEROY Administration Famotidine 20 mg 06/24/19 21:00 06/25/19 11:15 Pepcid PO 20 mg BID LEROY Administration - Exam General Appearance: awake alert ENT: normocephalic atraumatic Neck: supple, no JVD Heart: RRR Respiratory: CTAB Gastrointestinal: soft, non-tender, non-distended, normal bowel sounds Hosp A/P (1) DKA (diabetic ketoacidoses) Code(s): E11.10 - TYPE 2 DIABETES MELLITUS WITH KETOACIDOSIS WITHOUT COMA Status: Resolved Qualifiers: Diabetes mellitus type: type 1 Diabetes mellitus complication detail: without coma Qualified Code(s): E10.10 - Type 1 diabetes mellitus with ketoacidosis without coma (2) Hyperkalemia Code(s): E87.5 - HYPERKALEMIA Status: Acute (3) Metabolic acidosis Code(s): E87.2 - ACIDOSIS Status: Acute (4) Hypokalemia Code(s): E87.6 - HYPOKALEMIA Status: Acute (5) Nausea & vomiting Code(s): R11.2 - NAUSEA WITH VOMITING, UNSPECIFIED Status: Resolved Qualifiers: Vomiting type: unspecified - Plan DKA resolved. Insulin drip discontinued and patient was started on subcu Lantus 30 units daily. Continue IV fluids and initiated diet. Hopefully we can transition her to the medical floor today.
[2019-06-25] MEDS: Insulin Regular 300 UNITS/3 ML VIAL SC PRN (18:10)
[2019-06-26 03:58] LABS: Anion Gap 16 mmol/L (10-20); BUN (Urea Nitrogen) 6 mg/dL (7.0-18.7); Calc. Creatinine Clearance 139 mL/min (70-130); Calcium 8.7 mg/dL (7.8-10.44); Carbon Dioxide 18 mmol/L (22-29); Chloride 105 mmol/L (98-107); Estimated GFR-MDRD Greater than 90; Glucose 209 mg/dL (70-105); Potassium 3.5 mmol/L (3.5-5.1); Sodium 135 mmol/L (136-145)
[2019-06-26] MEDS: Insulin Regular 300 UNITS/3 ML VIAL SC PRN ×3 (06:10→17:36)
[2019-06-26] MEDS ORDERED: Insulin Glargine 30 UNITS in Pre-Filled Syringe 1 EACH SC SCH (09:00)
[2019-06-26] MEDS: Famotidine 20 MG TAB PO SCH ×2 (09:33→20:19)
[2019-06-26] MEDS: Enoxaparin Sodium 40 MG/0.4 ML SYRINGE SC SCH (09:36)
[2019-06-26] MEDS ORDERED: Chloraseptic Spray 180 ml Bottle PO PRN ×2 (10:43→19:07)
[2019-06-26] MEDS ORDERED: Insulin Glargine 10 UNITS in Pre-Filled Syringe 1 EACH SC SCH ×2 (10:45→20:00)
--- NOTE | 2019-06-26 18:51 | PDOC.HOSPP ---
- Subjective Encounter Date: 06/26/19 Subjective: Feels better - Objective Vital Signs & Weight: Vital Signs (12 hours) Temp Pulse Ox 06/26/19 12:00 98.3 F 06/26/19 09:54 98.8 F 06/26/19 07:54 98 06/26/19 07:31 97.8 F Weight Weight 140 lb 14.006 oz Most Recent Monitor Data Heart Rate from ECG 104 NIBP 123/76 NIBP BP-Mean 91 Respiration from ECG 12 SpO2 98 I&O: 06/25/19 06/26/19 06/27/19 06:59 06:59 06:59 Intake Total 4158 2839 Output Total 1000 Balance 3158 2839 Result Diagrams: 06/24/19 11:20 06/26/19 03:10 Additional Labs: Accuchecks 06/26/19 06/26/19 06/26/19 16:25 10:19 06:11 POC Glucose 223 H 241 H 234 H 06/25/19 20:15 POC Glucose 276 H Hospitalist ROS - Medication Medications: Active Medications Generic Name Dose Route Start Last Admin Trade Name Freq PRN Reason Stop Dose Admin Enoxaparin Sodium 40 mg 06/25/19 09:00 06/26/19 09:36 Lovenox SC Not Given 0900 LEROY Famotidine 20 mg 06/24/19 21:00 06/26/19 09:33 Pepcid PO 20 mg BID LEROY Administration Insulin Human Regular 0 units 06/25/19 09:54 06/26/19 17:36 Humulin R SC 4 unit .MODERATE SLIDING SC PRN Administration Moderate Correctional Scale Phenol 0 ml 06/26/19 10:43 06/26/19 12:26 Chloraseptic [place] 180 Ml Bot PO 1 spray PRN PRN Administration SORE THROAT Sodium Chloride 10 ml 06/25/19 21:00 06/26/19 09:37 Flush - Normal Saline IVF 10 ml Q12HR LEROY Administration - Exam General Appearance: NAD ENT: normocephalic atraumatic Neck: supple, no JVD Heart: RRR, no murmur, no gallops, normal peripheral pulses Respiratory: CTAB Gastrointestinal: soft, non-tender, non-distended, normal bowel sounds Neurological: no focal deficits Hosp A/P (1) DKA (diabetic ketoacidoses) Code(s): E11.10 - TYPE 2 DIABETES MELLITUS WITH KETOACIDOSIS WITHOUT COMA Status: Resolved Qualifiers: Diabetes mellitus type: type 1 Diabetes mellitus complication detail: without coma Qualified Code(s): E10.10 - Type 1 diabetes mellitus with ketoacidosis without coma (2) Hyperkalemia Code(s): E87.5 - HYPERKALEMIA Status: Acute (3) Metabolic acidosis Code(s): E87.2 - ACIDOSIS Status: Acute (4) Hypokalemia Code(s): E87.6 - HYPOKALEMIA Status: Acute - Plan DKA resolved. Patient remains with uncontrolled hyperglycemia. We will increase Lantus to 40 units in the morning and monitor her response.
[2019-06-26] MEDS ORDERED: Insulin Regular 300 UNITS/3 ML VIAL SC PRN ×2 (19:07→19:37)
[2019-06-26] MEDS ORDERED: Dextrose 5% in Water 1,000 ML IV PRN (19:07)
[2019-06-26] MEDS ORDERED: Dextrose 50% Abboject 50 ML SYRINGE IVP PRN (19:07)
[2019-06-26] MEDS ORDERED: PARoxetine 20 MG TAB PO SCH (21:00)
[2019-06-27 06:06] LABS: Anion Gap 12 mmol/L (10-20); BUN (Urea Nitrogen) 8 mg/dL (7.0-18.7); Calc. Creatinine Clearance 159 mL/min (70-130); Calcium 8.8 mg/dL (7.8-10.44); Carbon Dioxide 27 mmol/L (22-29); Chloride 104 mmol/L (98-107); Estimated GFR-MDRD Greater than 90; Glucose 165 mg/dL (70-105); Potassium 3.6 mmol/L (3.5-5.1); Sodium 139 mmol/L (136-145)
[2019-06-27] MEDS ORDERED: metFORMIN 500 MG TAB PO SCH (08:00)
[2019-06-27 08:06] VITALS: BP 109/74; TEMP 97.7
[2019-06-27] MEDS: Famotidine 20 MG TAB PO SCH (08:30)
[2019-06-27] MEDS: Enoxaparin Sodium 40 MG/0.4 ML SYRINGE SC SCH (08:32)
[2019-06-27] MEDS ORDERED: Insulin Glargine 40 UNITS in Pre-Filled Syringe 1 EACH SC SCH (09:00)
--- NOTE | 2019-06-28 02:01 | DIS ---
DATE OF ADMISSION: 06/24/2019 DATE OF DISCHARGE: 06/27/2019 HISTORY OF PRESENT ILLNESS AND HOSPITAL COURSE: This is a 23-year-old female with past medical history of diabetes mellitus and DKA, who presented to the hospital with complaints of abdominal pain, nausea, and vomiting since the day prior to admission. The patient also reported some shortness of breath and chills. In the ER, her initial workup revealed hyperglycemia, dehydration, and anion gap metabolic acidosis consistent with DKA. The patient was admitted to Intensive Care Unit and was managed with IV insulin drip, IV fluids, and electrolyte replacement per DKA protocol. Her metabolic acidosis resolved within 24 hours. Subsequently, the patient was transitioned to subcutaneous long acting insulin and we were working to regulate her sugar levels for another 24 hours. On the day of discharge, the patient is stable, tolerating diet, and insulin levels are stable. DISCHARGE DIAGNOSES: 1. Diabetic ketoacidosis. 2. Hypokalemia. 3. Anion gap metabolic acidosis. 4. Acute kidney injury. 5. Hyperglycemia. 6. Nausea and vomiting. DISCHARGE MEDICATIONS: 1. Metformin 500 mg orally twice daily. 2. Paroxetine 10 mg orally nightly. 3. Insulin glargine 20 units subcu b.i.d. 4. Insulin Humalog 0 to 13 units subcu t.i.d. with meals per sliding scale. 5. Lisinopril 5 mg orally daily. DISCHARGE INSTRUCTIONS: The patient was instructed to proceed diabetic diet, exercise as tolerated, and follow up with her PCP in 1 week. Job ID: [id number]
== END 2019-06-27 14:30 | disposition home or self-care (01) | DRG 638 ==
LOC: ERS 10:57 → ERHOLD 16:34 → IMCU/EMU 16:58 → T4-B 06-27 01:05
PROVIDERS: ADMIT Internal Medicine; ATTEND Internal Medicine
DX: E10.10 Type 1 diabetes mellitus with ketoacidosis without coma (principal); N17.9 Acute kidney failure, unspecified; E87.1 Hypo-osmolality and hyponatremia; E86.0 Dehydration; E86.1 Hypovolemia; L40.9 Psoriasis, unspecified; F17.210 Nicotine dependence, cigarettes, uncomplicated; F41.9 Anxiety disorder, unspecified; E87.5 Hyperkalemia; Z79.4 Long term (current) use of insulin; Z79.899 Other long term (current) drug therapy; Z79.84 Long term (current) use of oral hypoglycemic drugs
CPT/HCPCS: 36415; 36416; 71045; 80048; 80053; 81003; 81015; 81025; 82010; 82330; 82803; 83690; 83735; 84100; 85025; 87086; 96361; 96365; 96366; 96368; 96375; 99292; J1650; J1815; J2405; J3480; J3490

== ENCOUNTER 2020-06-23 10:38 | Inpatient (IN) | payer SELFPAY ==
[2020-06-23] MEDS ORDERED: Morphine 4 MG/ML VIAL ONE (11:41)
[2020-06-23] MEDS ORDERED: Metoclopramide HCl 10 MG/2 ML VIAL ONE (11:41)
[2020-06-23] MEDS ORDERED: Cefepime 2 GM VIAL ONE (13:27)
[2020-06-23] MEDS ORDERED: Dextrose 5 %-0.45 % NaCl 1,000 ML IV PRN (15:58)
[2020-06-23] MEDS ORDERED: NS 0.9% w/ 20 MEQ KCL 1,000 ML IV PRN ×2 (15:58)
[2020-06-23] MEDS ORDERED: D5 1/2 NS w/20 mEq KCL 1,000 ML IV PRN (15:58)
[2020-06-23] MEDS ORDERED: Electrolyte Replacement Protocol 1 EACH IVPB ONE (15:58)
[2020-06-23] MEDS ORDERED: Sodium Chloride 0.9% 1,000 ML IV PRN ×4 (15:58)
[2020-06-23] MEDS ORDERED: HUMULIN R 100 UNITS in Sodium Chloride 0.9% 100 ML IVPB SCH (16:00)
[2020-06-23] MEDS ORDERED: Metoclopramide HCl 10 MG/2 ML VIAL IVP PRN (16:04)
--- NOTE | 2020-06-23 16:25 | PDOC.HHP ---
Hospitalist HPI Nausea and vomiting History of Present Illness: The patient is a 24-year-old female with past medical history of type 1 diabetes mellitus and anxiety. She takes Levemir at home and claims to be compliant with the medication. Patient presented to the hospital with complaints of abdominal discomfort, nausea and vomiting that started suddenly this morning. She was unable to eat or drink anything. Upon presentation to the ER, the patient was found to be hyperglycemic, acidotic, and with ketone bodies in the urine suggesting diabetic ketoacidosis. She was admitted for the same reason last week. Allergies/Adverse Reactions: Allergy/AdvReac Type Severity Reaction Status Date / Time No Known Drug Allergies Allergy Verified 07/29/19 10:41 Home Medications: Medication Instructions Recorded Confirmed Type PARoxetine HCl [Paxil] 20 mg PO DAILY 06/26/19 06/12/20 History Lisinopril 10 mg PO DAILY 12/31/19 06/12/20 History Insulin Glargine [Lantus Vial] 50 units SC BID 30 Days #1 vial 01/01/20 06/12/20 Rx metFORMIN [Glucophage] 1,000 mg PO BID 30 Days #60 tab 01/01/20 06/12/20 Rx Nystatin [Nystatin Cream] 1 applic TOP BID #1 tube 06/14/20 Rx Past History: PMHx: DKA; anxiety PSHx: None FHx: Noncontributory to current presentation Social: Drinks alcohol socially. Denies illicit drug use. Hospitalist HPI ROS All other systems reviewed; all pertinent +/- noted in HPI/Subj Hospitalist Exam General Appearance: awake alert ENT: normocephalic atraumatic Neck: supple Heart: RRR, no murmur, no gallops Respiratory: CTAB, no wheezes, no rales, normal chest expansion, no tachypnea Gastrointestinal: soft, non-tender, non-distended Extremities: no cyanosis, no clubbing Neurological: cranial nerve grossly intact, no new deficit Hospitalist H&P A/P (1) DKA (diabetic ketoacidoses) Code(s): E11.10 - TYPE 2 DIABETES MELLITUS WITH KETOACIDOSIS WITHOUT COMA Status: Acute Qualifiers: Diabetes mellitus type: type 1 Diabetes mellitus complication detail: without coma Qualified Code(s): E10.10 - Type 1 diabetes mellitus with ketoacidosis without coma (2) Anxiety Code(s): F41.9 - ANXIETY DISORDER, UNSPECIFIED Status: Chronic Plan: The patient will be admitted to the IMCU. We will start IV fluids, insulin drip, and electrolyte replacement per DKA protocol. Reviewed orders for details. IV Reglan every 6 hours as needed for nausea and vomiting. The patient will be kept n.p.o. until her metabolic acidosis resolved and she is off DKA protocol.
[2020-06-23] MEDS ORDERED: Electrolyte Replacement Protocol FS PRN (16:30)
[2020-06-23] MEDS ORDERED: INSULIN REGULAR IN 0.9 % NACL 100 UNIT/100 ML BAG ONE (16:41)
[2020-06-23 16:42] LABS: Bacteria/HPF None Seen HPF (None Seen); Bilirubin Negative (Negative); Blood, Urine 2+ (Negative); Clarity Clear (Clear); Glucose, Urine (Dipstick) Greater than 1000 mg/dL (Negative); Ketone, Urine Greater than 150 mg/dL (Negative); Leukocyte Negative Leu/uL (Negative); Nitrite Negative (Negative); Protein, Urine (Dipstick) 20 mg/dL (Neg-Trace); RBC/HPF 21-50 HPF (0-3); Specific Gravity, Urine 1.031 (1.002-1.036); Squamous Epithelial 0-3 HPF (0-3); Urobilinogen Normal mg/dL (Less than 2); WBC/HPF 0-3 HPF (0-3)
--- NOTE | 2020-06-23 17:27 | RAD ---
FRONTAL RADIOGRAPH CHEST: 06/23/20 1:05 p.m. HISTORY: Pain and shortness of breath. FINDINGS: No pneumothorax, pleural fluid, focal consolidation or alveolar edema. Heart and mediastinal contours appear grossly unremarkable. IMPRESSION: No focal consolidation or alveolar edema. POS: [facility]
[2020-06-23 19:04] LABS: Anion Gap 32 mmol/L (10-20); BUN (Urea Nitrogen) 22 mg/dL (7.0-18.7); Calc. Creatinine Clearance 0 mL/min (70-130); Carbon Dioxide 12 mmol/L (22-29); Chloride 96 mmol/L (98-107); Potassium 4.5 mmol/L (3.5-5.1); Sodium 135 mmol/L (136-145)
[2020-06-23 19:05] LABS: ALT (SGPT) 13 U/L (8-55); AST (SGOT) 12 U/L (5-34); Alkaline Phosphatase 127 U/L (40-110); Bilirubin, Total 0.4 mg/dL (0.2-1.2); Globulin 4.1 g/dL (2.4-3.5); Glucose 469 mg/dL (70-105); Protein, Total 9.1 g/dL (6.0-8.3)
[2020-06-23 19:08] LABS: BHCG - Serum Negative (NEGATIVE); Pregs Control Background? CLEAR/WHITE (CLR/WHITE); Pregs Control Bar Appear? YES (CONTROL BAR)
[2020-06-23 19:23] LABS: BUN (Urea Nitrogen) 16 mg/dL (7.0-18.7); Calc. Creatinine Clearance 0 mL/min (70-130); Calcium 9.2 mg/dL (7.8-10.44); Chloride 110 mmol/L (98-107); Glucose 280 mg/dL (70-105); Potassium 5.4 mmol/L (3.5-5.1); Sodium 138 mmol/L (136-145)
[2020-06-23 19:36] LABS: Carbon Dioxide Less than 8 mmol/L (22-29)
[2020-06-23 19:41] LABS: Hemoglobin 16.5 g/dL (12.0-16.0); Mean Corpuscular HGB CONC 31.9 g/dL (32.0-36.0); Mean Corpuscular Hemoglobin 29.7 pg (27.0-31.0); Mean Platelet Volume 9.3 fL (7.4-10.4); Platelet Count 300 thou/uL (130-400); RBC Distribution Width 11.8 % (11.5-14.5); Red Blood Cell (RBC) Count 5.56 mill/uL (4.20-5.40)
[2020-06-23 19:43] LABS: Band 23 % (5-11); Lymphocytes 5 % (21-51); Neutrophil 72 % (42-75); Platelet Morphology Comment Appears Adequate; RBC Morphology Normal
[2020-06-23 21:45] LABS: SARS-CoV-2 NAA Rapid Test Not Detected (NotDetected)
[2020-06-23 22:10] LABS: BUN (Urea Nitrogen) 13 mg/dL (7.0-18.7); Calc. Creatinine Clearance 0 mL/min (70-130); Calcium 8.5 mg/dL (7.8-10.44); Chloride 111 mmol/L (98-107); Glucose 176 mg/dL (70-105); Potassium 5.4 mmol/L (3.5-5.1); Sodium 136 mmol/L (136-145)
[2020-06-23 22:11] LABS: Lactic Acid 1.6 mmol/L (0.5-2.2)
[2020-06-23 22:14] LABS: Carbon Dioxide Less than 8 mmol/L (22-29)
[2020-06-23 23:36] LABS: Actual Bicarbonate (HCO3a) 10.9 mEq/L (22-28); Base Excess (BEa) -14.9 mEq/L (-2.0 to +3.0); CO2 Tension 26.5 mmHg (35.0-45.0); Calcium, Ionized (arterial) 1.22 mmol/L (1.12-1.30); Carboxyhemoglobin (COHb) 1.1 gm% (0.0-3.0); Hemoglobin (Hb) 13.4 g/dL (12.0-16.0); O2 Tension (PaO2), arterial 96.7 mmHg (80.0-100.0); Potassium - ABG Lab 4.49 mmol/L (3.70-5.30); pH, Arterial 7.23 (7.35-7.45)
[2020-06-24 00:47] LABS: MDiff Complete? YES
[2020-06-24 01:47] LABS: Anion Gap 16 mmol/L (10-20); BUN (Urea Nitrogen) 12 mg/dL (7.0-18.7); Calc. Creatinine Clearance 0 mL/min (70-130); Calcium 7.9 mg/dL (7.8-10.44); Carbon Dioxide 10 mmol/L (22-29); Chloride 110 mmol/L (98-107); Glucose 148 mg/dL (70-105); Potassium 4.3 mmol/L (3.5-5.1); Sodium 132 mmol/L (136-145)
[2020-06-24 04:15] LABS: Anion Gap 13 mmol/L (10-20); BUN (Urea Nitrogen) 11 mg/dL (7.0-18.7); Calc. Creatinine Clearance 0 mL/min (70-130); Calcium 7.8 mg/dL (7.8-10.44); Carbon Dioxide 13 mmol/L (22-29); Chloride 109 mmol/L (98-107); Glucose 217 mg/dL (70-105); Sodium 131 mmol/L (136-145)
[2020-06-24] MEDS ORDERED: FLU VACC QS2020-21(6MOS UP)/PF 60 MCG/0.5 ML SYRINGE IM ONE (09:00)
[2020-06-24 09:42] LABS: #Basophils 0.1 thou/uL (0.0-0.2); #Eosinphils 0.1 thou/uL (0.0-0.7); #Lymphocytes 2.8 thou/uL (1.20-3.40); #Monocytes 0.8 thou/uL (0.11-0.59); #Neutrophils 10.4 thou/uL (1.40-6.50); %Basophils 0.4 % (0.0-1.0); %Eosinophils 0.4 % (0.0-10.0); %Lymphocytes 19.8 % (21.0-51.0); %Monocytes 5.8 % (0.0-10.0); %Neutrophils 73.6 % (42.0-75.0); Hemoglobin 12.3 g/dL (12.0-16.0); Mean Corpuscular HGB CONC 32.8 g/dL (32.0-36.0); Mean Corpuscular Hemoglobin 30.4 pg (27.0-31.0); Mean Corpuscular Volume 92.7 fL (78.0-98.0); Mean Platelet Volume 8.3 fL (7.4-10.4); Platelet Count 239 thou/uL (130-400); RBC Distribution Width 11.7 % (11.5-14.5); Red Blood Cell (RBC) Count 4.03 mill/uL (4.20-5.40); White Blood Cell (WBC) Count 14.2 thou/uL (4.8-10.8)
[2020-06-24] MEDS ORDERED: Dextrose 50% Abboject 50 ML SYRINGE SLOW IVP PRN (11:09)
[2020-06-24] MEDS ORDERED: Dextrose 5% in Water 1,000 ML IV PRN ×2 (11:09→11:15)
[2020-06-24] MEDS ORDERED: HumaLOG 300 UNITS/3 ML VIAL SC PRN (11:09)
[2020-06-24] MEDS ORDERED: Insulin Glargine 50 UNITS in Pre-Filled Syringe 1 EACH SC SCH ×2 (11:15→21:00)
[2020-06-24] MEDS ORDERED: Dextrose 50% Abboject 50 ML SYRINGE IVP PRN (11:15)
--- NOTE | 2020-06-24 11:26 | PDOC.HOSPP ---
- Subjective Encounter Date: 06/24/20 Encounter Time: 11:24 Subjective: Ms. Maki was seen today in follow-up of DKA. She says she feels much better. She was not feeling sick prior to developing DKA. She says she is complaint with insulin, at home, but admits she is under a lot of stress at home, and she does not check her blood glucose to see if her current regimen works. She has a primary care provider, Dr. Renetta Alas. - Objective Vital Signs & Weight: Vital Signs (12 hours) Temp Pulse Ox 06/24/20 08:00 98.8 F 06/24/20 00:00 97.5 F L 100 Weight Weight 6.173 oz Most Recent Monitor Data Heart Rate from ECG 97 NIBP 97/66 NIBP BP-Mean 76 Respiration from ECG 15 SpO2 99 I&O: 06/23/20 06/24/20 06/25/20 06:59 06:59 06:59 Output Total 0 250 Balance 0 -250 Result Diagrams: 06/24/20 08:48 06/24/20 03:07 Additional Labs: Accuchecks 06/24/20 06/24/20 06/24/20 10:10 08:47 07:09 POC Glucose 174 H 152 H 189 H 06/24/20 06/24/20 06/24/20 06:00 05:17 03:09 POC Glucose 227 H 211 H 207 H 06/24/20 06/24/20 06/23/20 02:12 01:09 23:58 POC Glucose 188 H 134 H 129 H 06/23/20 06/23/20 23:05 21:43 POC Glucose 131 H 158 H Hospitalist ROS - Medication Medications: Active Medications Generic Name Dose Route Start Last Admin Trade Name Freq PRN Reason Stop Dose Admin Sodium Chloride 10 ml 06/24/20 09:00 06/24/20 09:48 Flush - Normal Saline 10 Ml Syringe IVF 10 ml Q12HR LEROY Administration Hospitalist Exam Vitals: Vital Signs (12 hours) Temp Pulse Ox 06/24/20 08:00 98.8 F 06/24/20 00:00 97.5 F L 100 Weight Weight 6.173 oz Most Recent Monitor Data Heart Rate from ECG 97 NIBP 97/66 NIBP BP-Mean 76 Respiration from ECG 15 SpO2 99 General Appearance: NAD, awake alert Eye: PERRL, anicteric sclera Heart: RRR, no murmur, no gallops, no rubs, normal peripheral pulses Respiratory: rales Gastrointestinal: soft, non-tender, non-distended, normal bowel sounds, no palpable masses, no hepatomegaly Extremities: no cyanosis, no edema (good d.p. pulses bilaterally. no lesions) Hosp A/P (1) DKA (diabetic ketoacidoses) Code(s): E11.10 - TYPE 2 DIABETES MELLITUS WITH KETOACIDOSIS WITHOUT COMA Status: Acute Qualifiers: Diabetes mellitus type: type 1 Diabetes mellitus complication detail: without coma Qualified Code(s): E10.10 - Type 1 diabetes mellitus with ketoacidosis without coma (2) Hypertension Code(s): I10 - ESSENTIAL (PRIMARY) HYPERTENSION Status: Chronic (3) Acute renal failure Status: Resolved Qualifiers: Acute renal failure type: unspecified Qualified Code(s): N17.9 - Acute kidney failure, unspecified - Plan * DKA- resolved- her AG has closed, and her symptoms have improved * Will discontinue the insulin drip, and place her back on Lantus and a SSI * Will consult Disease management for diabetic education * HTN- can re-start Lisinopril * ANGELY- resolved * She can be moved to the medical floor once she is off the insulin drip.
[2020-06-24 13:52] VITALS: BMI 27.8
[2020-06-24] MEDS: HumaLOG 300 UNITS/3 ML VIAL SC PRN (16:10)
[2020-06-25] MEDS: HumaLOG 300 UNITS/3 ML VIAL SC PRN ×2 (05:58→12:38)
[2020-06-25 07:15] LABS: #Basophils 0.1 thou/uL (0.0-0.2); #Eosinphils 0.1 thou/uL (0.0-0.7); #Lymphocytes 2.7 thou/uL (1.20-3.40); #Monocytes 0.5 thou/uL (0.11-0.59); #Neutrophils 3.9 thou/uL (1.40-6.50); %Basophils 0.8 % (0.0-1.0); %Eosinophils 1.9 % (0.0-10.0); %Lymphocytes 37.3 % (21.0-51.0); %Monocytes 6.3 % (0.0-10.0); %Neutrophils 53.7 % (42.0-75.0); Hemoglobin 12.9 g/dL (12.0-16.0); Mean Corpuscular HGB CONC 33.3 g/dL (32.0-36.0); Mean Corpuscular Hemoglobin 31.3 pg (27.0-31.0); Mean Corpuscular Volume 93.7 fL (78.0-98.0); Mean Platelet Volume 8.6 fL (7.4-10.4); Platelet Count 198 thou/uL (130-400); RBC Distribution Width 11.8 % (11.5-14.5); Red Blood Cell (RBC) Count 4.13 mill/uL (4.20-5.40); White Blood Cell (WBC) Count 7.2 thou/uL (4.8-10.8)
[2020-06-25 07:17] LABS: Anion Gap 15 mmol/L (10-20); BUN (Urea Nitrogen) 8 mg/dL (7.0-18.7); Calc. Creatinine Clearance 177 mL/min (70-130); Calcium 8.2 mg/dL (7.8-10.44); Carbon Dioxide 18 mmol/L (22-29); Chloride 107 mmol/L (98-107); Glucose 210 mg/dL (70-105); Potassium 3.7 mmol/L (3.5-5.1); Sodium 136 mmol/L (136-145)
[2020-06-25] MEDS ORDERED: Insulin Glargine 50 UNITS in Pre-Filled Syringe 1 EACH SC SCH (09:00)
[2020-06-25] MEDS ORDERED: PARoxetine 20 MG TAB PO SCH (09:00)
[2020-06-25] MEDS ORDERED: Lisinopril 10 MG TAB PO SCH (09:00)
--- NOTE | 2020-06-25 15:28 | PDOC.HOSPP ---
- Subjective Encounter Date: 06/25/20 Encounter Time: 15:26 Subjective: Ms. Maki was seen today in follow-up of DKA, which has resolved. She does not have any complaints today. - Objective Vital Signs & Weight: Vital Signs (12 hours) Temp Pulse Resp BP BP Pulse Ox 06/25/20 07:40 98.0 F 71 20 117/72 99 06/25/20 05:25 97.9 F 81 16 109/70 99 Weight Weight 167 lb Most Recent Monitor Data Heart Rate from ECG 86 NIBP 103/74 NIBP BP-Mean 83 Respiration from ECG 15 SpO2 100 I&O: 06/24/20 06/25/20 06/26/20 06:59 06:59 06:59 Intake Total 780 Output Total 0 650 Balance 0 130 Result Diagrams: 06/25/20 06:24 06/25/20 06:24 Additional Labs: Accuchecks 06/25/20 06/25/20 06/24/20 10:58 05:23 21:03 POC Glucose 274 H 194 H 198 H 06/24/20 16:09 POC Glucose 193 H Hospitalist ROS - Medication Medications: Active Medications Generic Name Dose Route Start Last Admin Trade Name Freq PRN Reason Stop Dose Admin Insulin Glargine 50 units/ 0.5 mls @ 0 mls/hr 06/24/20 21:00 06/24/20 21:04 Miscellaneous Medication SC Not Given HS [facility] Insulin Glargine 50 units/ 0.5 mls @ 0 mls/hr 06/25/20 09:00 06/25/20 10:16 Miscellaneous Medication SC 0.5 mls QAM LEROY Administration Insulin Human Lispro 0 units 06/24/20 11:09 06/25/20 12:38 Humalog 300 Units/3 Ml Vial SC 6 units .MODERATE SLIDING SC PRN Administration Moderate Correctional Scale Lisinopril 10 mg 06/25/20 09:00 06/25/20 07:49 Lisinopril 10 Mg Tab PO 10 mg DAILY LEROY Administration Paroxetine HCl 20 mg 06/25/20 09:00 06/25/20 07:49 Paroxetine 20 Mg Tab PO 20 mg DAILY LEROY Administration Sodium Chloride 10 ml 06/24/20 09:00 06/25/20 07:49 Flush - Normal Saline 10 Ml Syringe IVF 10 ml Q12HR LEROY Administration Hospitalist Exam Vitals: Vital Signs (12 hours) Temp Pulse Resp BP BP Pulse Ox 06/25/20 07:40 98.0 F 71 20 117/72 99 06/25/20 05:25 97.9 F 81 16 109/70 99 Weight Weight 167 lb Most Recent Monitor Data Heart Rate from ECG 86 NIBP 103/74 NIBP BP-Mean 83 Respiration from ECG 15 SpO2 100 General Appearance: NAD, awake alert Eye: PERRL, anicteric sclera Heart: RRR, no murmur, no gallops, no rubs, normal peripheral pulses Respiratory: CTAB, no wheezes, no rales, no ronchi, normal chest expansion, no t achypnea, normal percussion Gastrointestinal: soft, non-tender, non-distended, normal bowel sounds, no palpable masses, no hepatomegaly Extremities: no cyanosis, no edema Hosp A/P (1) DKA (diabetic ketoacidoses) Code(s): E11.10 - TYPE 2 DIABETES MELLITUS WITH KETOACIDOSIS WITHOUT COMA Status: Acute Qualifiers: Diabetes mellitus type: type 1 Diabetes mellitus complication detail: without coma Qualified Code(s): E10.10 - Type 1 diabetes mellitus with ketoacidosis without coma (2) Hypertension Code(s): I10 - ESSENTIAL (PRIMARY) HYPERTENSION Status: Chronic (3) Acute renal failure Status: Resolved Qualifiers: Acute renal failure type: unspecified Qualified Code(s): N17.9 - Acute kidney failure, unspecified - Plan * DKA- resolved- * DM- her blood glucose has been in a reasonable on her home regimen. * Stable for discharge home
[2020-06-25 16:06] VITALS: BP 115/76; TEMP 97.8
--- NOTE | 2020-06-25 19:42 | DIS ---
DATE OF ADMISSION: 06/23/2020 DATE OF DISCHARGE: 06/25/2020 DISCHARGE DISPOSITION: Home. DISCHARGE DIAGNOSES: 1. Diabetic ketoacidosis, resolved. 2. Diabetes mellitus, type 2, insulin dependent. 3. Hypertension. 4. Generalized anxiety. DISCHARGE MEDICATIONS: Include; 1. Lisinopril 10 mg daily. 2. Paroxetine 20 mg p.o. daily. 3. Metformin 1000 mg p.o. b.i.d. 4. Lantus 50 units subcu b.i.d. CODE STATUS: Full code. ALLERGIES: NO KNOWN DRUG ALLERGIES. HOSPITAL COURSE: Ms. Maki is a pleasant 24-year-old female, who was admitted to the hospital with diabetic ketoacidosis. The full details of which are outlined in the history and physical. She was admitted to the ICU, placed on an insulin drip and her symptoms resolved fairly quickly. It is unclear what precipitated the diabetic ketoacidosis. She says that she is compliant with medications, but has been having quite a bit of stress at home. We placed her back on her regular dose of insulin and her blood glucoses were relatively well controlled. She says that she has her insulin at home as well as the lisinopril and will be discharged home to have close outpatient followup with her primary care physician. Job ID: [id number]
== END 2020-06-25 17:21 | disposition home or self-care (01) | DRG 638 ==
LOC: ERS 10:38 → ERHOLD 16:06 → UNDOADMIN 16:06 → CCU 22:44 → ERHOLD 22:44 → CCU 22:52 → IMCU/EMU 22:52 → T4-A 06-24 16:33
PROVIDERS: ADMIT Internal Medicine; ATTEND Internal Medicine
DX: E10.10 Type 1 diabetes mellitus with ketoacidosis without coma (principal); N17.9 Acute kidney failure, unspecified; Z20.822 Contact with and (suspected) exposure to COVID-19; I10 Essential (primary) hypertension; F41.9 Anxiety disorder, unspecified; Z79.899 Other long term (current) drug therapy; Z79.4 Long term (current) use of insulin
CPT/HCPCS: 0240U; 36415; 36416; 71045; 80048; 81003; 81015; 82010; 82805; 83605; 84703; 85025; 87040; 87077; 87086; 96365; 96366; J0692; J1815; J2270; J2765; J3480; J3490

== ENCOUNTER 2020-12-30 06:09 | Emergency (ER) | payer SELFPAY ==
[2020-12-30 07:04] LABS: #Basophils 0.1 thou/uL (0.0-0.2); #Eosinphils 0.2 thou/uL (0.0-0.7); #Lymphocytes 2.4 thou/uL (1.20-3.40); #Monocytes 0.8 thou/uL (0.11-0.59); #Neutrophils 6.9 thou/uL (1.40-6.50); %Basophils 0.7 % (0.0-1.0); %Eosinophils 1.6 % (0.0-10.0); %Lymphocytes 23.1 % (21.0-51.0); %Monocytes 7.9 % (0.0-10.0); %Neutrophils 66.7 % (42.0-75.0); Hemoglobin 13.5 g/dL (12.0-16.0); Mean Corpuscular HGB CONC 33.7 g/dL (32.0-36.0); Mean Corpuscular Hemoglobin 31.9 pg (27.0-31.0); Mean Corpuscular Volume 94.5 fL (78.0-98.0); Mean Platelet Volume 8.4 fL (7.4-10.4); Platelet Count 229 thou/uL (130-400); RBC Distribution Width 11.9 % (11.5-14.5); Red Blood Cell (RBC) Count 4.24 mill/uL (4.20-5.40); White Blood Cell (WBC) Count 10.3 thou/uL (4.8-10.8)
[2020-12-30 07:34] LABS: Bilirubin Negative (Negative); Blood, Urine 3+ (Negative); Clarity Turbid (Clear); Glucose, Urine (Dipstick) Greater than 1000 mg/dL (Negative); Ketone, Urine Negative (Negative); Leukocyte Negative Leu/uL (Negative); Nitrite Negative (Negative); Protein, Urine (Dipstick) Negative (Neg-Trace); RBC/HPF Greater than 50 HPF (0-3); Specific Gravity, Urine 1.036 (1.002-1.036); Squamous Epithelial 0-3 HPF (0-3); Urobilinogen Normal mg/dL (Less than 2)
[2020-12-30 07:35] LABS: Bacteria/HPF 1+ HPF (None Seen)
[2020-12-30 07:49] LABS: Yeast-Budding 1+ HPF (None Seen)
== END 2020-12-30 08:48 | disposition home or self-care (01) ==
LOC: ERS 06:09
DX: O20.0 Threatened abortion (principal); O24.111 Pre-existing type 2 diabetes mellitus, in pregnancy, first trimester; E11.9 Type 2 diabetes mellitus without complications; O10.911 Unspecified pre-existing hypertension complicating pregnancy, first trimester; Z3A.01 Less than 8 weeks gestation of pregnancy
CPT/HCPCS: 36415; 76856; 81003; 81015; 84702; 85025; 86900; 86901

== ENCOUNTER 2021-04-29 19:27 | Emergency (ER) | payer OTHER, SELFPAY ==
[2021-04-29 19:51] LABS: Hemoglobin 14.6 g/dL (12.0-16.0); Mean Corpuscular HGB CONC 33.5 g/dL (32.0-36.0); Mean Corpuscular Hemoglobin 31.8 pg (27.0-31.0); Mean Corpuscular Volume 95.1 fL (78.0-98.0); RBC Distribution Width 11.7 % (11.5-14.5); Red Blood Cell (RBC) Count 4.58 mill/uL (4.20-5.40); White Blood Cell (WBC) Count 10.4 thou/uL (4.8-10.8)
[2021-04-29 19:52] LABS: #Eosinphils 0.1 thou/uL (0.0-0.7); #Monocytes 0.5 thou/uL (0.11-0.59); #Neutrophils 7.8 thou/uL (1.40-6.50); %Basophils 0.2 % (0.0-1.0); %Eosinophils 0.9 % (0.0-10.0); %Lymphocytes 18.8 % (21.0-51.0); %Monocytes 4.9 % (0.0-10.0); %Neutrophils 75.2 % (42.0-75.0); Mean Platelet Volume 8.3 fL (7.4-10.4); Platelet Count 224 thou/uL (130-400)
[2021-04-29 20:28] LABS: ALT (SGPT) 20 U/L (8-55); AST (SGOT) 24 U/L (5-34); Albumin 4.2 g/dL (3.5-5.0); Alkaline Phosphatase 91 U/L (40-110); Anion Gap 14 mmol/L (10-20); BUN (Urea Nitrogen) 11 mg/dL (7.0-18.7); Bilirubin, Total 0.3 mg/dL (0.2-1.2); Calc. Creatinine Clearance 0 mL/min (70-130); Calcium 9.5 mg/dL (7.8-10.44); Carbon Dioxide 22 mmol/L (22-29); Chloride 104 mmol/L (98-107); Globulin 3.5 g/dL (2.4-3.5); Glucose 343 mg/dL (70-105); Potassium 3.9 mmol/L (3.5-5.1); Protein, Total 7.7 g/dL (6.0-8.3); Sodium 136 mmol/L (136-145)
[2021-04-29] MEDS ORDERED: Morphine 4 MG/ML VIAL ONE (21:16)
[2021-04-29] MEDS ORDERED: Ketorolac Tromethamine 30 MG/ML VIAL ONE (21:16)
== END 2021-04-29 21:26 | disposition home or self-care (01) ==
LOC: ERS 19:27
DX: S29.012A Strain of muscle and tendon of back wall of thorax, initial encounter (principal); I10 Essential (primary) hypertension; E11.9 Type 2 diabetes mellitus without complications; Z87.891 Personal history of nicotine dependence; V89.2XXA Person injured in unspecified motor-vehicle accident, traffic, initial encounter
CPT/HCPCS: 36416; 71045; 71260; 74177; 80053; 83605; 85025; 93005; 96374; 96375; G0390; J1885; J2270

== ENCOUNTER 2021-09-03 16:39 | Inpatient (IN) | payer SELFPAY ==
[2021-09-03 17:10] LABS: #Eosinphils 0.1 thou/uL (0.0-0.7); #Lymphocytes 1.2 thou/uL (1.20-3.40); #Monocytes 0.1 thou/uL (0.11-0.59); %Basophils 0.1 % (0.0-1.0); %Eosinophils 0.3 % (0.0-10.0); %Lymphocytes 6.6 % (21.0-51.0); %Monocytes 0.8 % (0.0-10.0); %Neutrophils 92.2 % (42.0-75.0); Hemoglobin 16.3 g/dL (12.0-16.0); Mean Corpuscular HGB CONC 32.5 g/dL (32.0-36.0); Mean Corpuscular Hemoglobin 31.1 pg (27.0-31.0); Mean Corpuscular Volume 95.8 fL (78.0-98.0); Mean Platelet Volume 8.6 fL (7.4-10.4); Platelet Count 293 thou/uL (130-400); RBC Distribution Width 11.6 % (11.5-14.5); Red Blood Cell (RBC) Count 5.22 mill/uL (4.20-5.40); White Blood Cell (WBC) Count 18.4 thou/uL (4.8-10.8)
[2021-09-03] MEDS ORDERED: Ondansetron PF 4 MG/2 ML Vial ONE (17:11)
[2021-09-03 17:31] LABS: ALT (SGPT) 13 U/L (8-55); AST (SGOT) 13 U/L (5-34); Alkaline Phosphatase 125 U/L (40-110); Anion Gap 35 mmol/L (10-20); BUN (Urea Nitrogen) 17 mg/dL (7.0-18.7); Bilirubin, Total 0.7 mg/dL (0.2-1.2); Calc. Creatinine Clearance 0 mL/min (70-130); Calcium 10.4 mg/dL (7.8-10.44); Chloride 96 mmol/L (98-107); Globulin 4.1 g/dL (2.4-3.5); Glucose 441 mg/dL (70-105); Phosphorus 5.7 mg/dL (2.3-4.7); Potassium 5.3 mmol/L (3.5-5.1); Protein, Total 9.1 g/dL (6.0-8.3); Sodium 134 mmol/L (136-145)
[2021-09-03 17:32] LABS: Analyzer IN Cardio ER; Chloride (VBG) 101 mmol/L (98-106); Hemoglobin (Hb) 15.7 g/dL (11.7-15.5); Potassium (VBG) 5.73 mmol/L (3.70-5.30); pH (venous) 7.14 (7.32-7.43)
[2021-09-03 17:33] LABS: Actual Bicarbonate (HCO3v) 11 mEq/L (22-28)
[2021-09-03 17:40] LABS: Carbon Dioxide 8 mmol/L (22-29)
[2021-09-03] MEDS ORDERED: INSULIN REGULAR IN 0.9 % NACL 100 UNIT/100 ML BAG ONE (17:53)
[2021-09-03] MEDS ORDERED: Dextrose 5 %-0.45 % NaCl 1,000 ML IV PRN (19:20)
[2021-09-03] MEDS ORDERED: Acetaminophen 650 MG Suppository PR PRN (19:20)
[2021-09-03] MEDS ORDERED: NS 0.9% w/ 20 MEQ KCL 1,000 ML IV PRN ×2 (19:20)
[2021-09-03] MEDS ORDERED: Acetaminophen 325 MG TAB PO PRN (19:20)
[2021-09-03] MEDS ORDERED: Ondansetron PF 4 MG/2 ML Vial IVP PRN (19:20)
[2021-09-03] MEDS ORDERED: Electrolyte Replacement Protocol 1 EACH IVPB ONE (19:20)
[2021-09-03] MEDS ORDERED: Sodium Chloride 0.9% 1,000 ML IV PRN ×4 (19:20)
[2021-09-03] MEDS ORDERED: Ondansetron ODT 4 MG TAB PO PRN (19:20)
[2021-09-03] MEDS ORDERED: Electrolyte Replacement Protocol FS PRN (19:30)
[2021-09-03] MEDS ORDERED: HUMULIN R 100 UNITS in Sodium Chloride 0.9% 100 ML IVPB SCH (19:30)
[2021-09-03] MEDS ORDERED: Magnesium 2 GM/50 ML(in water) 2 GM in Premix Bag 1 BAG IVPB SCH (21:15)
[2021-09-03 21:17] VITALS: BMI 28.4
[2021-09-03 21:41] LABS: Anion Gap 24 mmol/L (10-20); BUN (Urea Nitrogen) 13 mg/dL (7.0-18.7); Calc. Creatinine Clearance 130 mL/min (70-130); Calcium 8.7 mg/dL (7.8-10.44); Carbon Dioxide 8 mmol/L (22-29); Chloride 107 mmol/L (98-107); Glucose 240 mg/dL (70-105); Potassium 4.5 mmol/L (3.5-5.1); Sodium 134 mmol/L (136-145)
[2021-09-03] MEDS: D5 1/2 NS w/20 mEq KCL 1,000 ML IV PRN (21:52)
[2021-09-04] MEDS: D5 1/2 NS w/20 mEq KCL 1,000 ML IV PRN ×3 (01:08→09:03)
[2021-09-04 01:52] LABS: Anion Gap 13 mmol/L (10-20); BUN (Urea Nitrogen) 9 mg/dL (7.0-18.7); Calc. Creatinine Clearance 148 mL/min (70-130); Carbon Dioxide 13 mmol/L (22-29); Chloride 109 mmol/L (98-107); Glucose 241 mg/dL (70-105); Potassium 4.2 mmol/L (3.5-5.1); Sodium 131 mmol/L (136-145)
[2021-09-04 02:00] LABS: #Lymphocytes 2.8 thou/uL (1.20-3.40); #Neutrophils 15.5 thou/uL (1.40-6.50); %Basophils 0.2 % (0.0-1.0); %Eosinophils 0.1 % (0.0-10.0); %Lymphocytes 14.6 % (21.0-51.0); %Neutrophils 80.1 % (42.0-75.0); Hemoglobin 12.2 g/dL (12.0-16.0); Mean Corpuscular HGB CONC 33.5 g/dL (32.0-36.0); Mean Corpuscular Hemoglobin 31.8 pg (27.0-31.0); Mean Platelet Volume 8.2 fL (7.4-10.4); Platelet Count 233 thou/uL (130-400); RBC Distribution Width 11.3 % (11.5-14.5); Red Blood Cell (RBC) Count 3.83 mill/uL (4.20-5.40); White Blood Cell (WBC) Count 19.4 thou/uL (4.8-10.8)
[2021-09-04 04:04] LABS: Phosphorus 1.6 mg/dL (2.3-4.7)
[2021-09-04 04:07] LABS: Anion Gap 10 mmol/L (10-20); BUN (Urea Nitrogen) 8 mg/dL (7.0-18.7); Calc. Creatinine Clearance 155 mL/min (70-130); Calcium 8.1 mg/dL (7.8-10.44); Carbon Dioxide 16 mmol/L (22-29); Chloride 109 mmol/L (98-107); Glucose 207 mg/dL (70-105); Magnesium 1.9 mg/dL (1.6-2.6); Potassium 3.8 mmol/L (3.5-5.1); Sodium 131 mmol/L (136-145)
[2021-09-04] MEDS ORDERED: Potassium Phosphate 15 MMOL in Sodium Chloride 0.9% 100 ML IVPB SCH (04:30)
[2021-09-04] MEDS ORDERED: Magnesium 2 GM/50 ML(in water) 2 GM in Premix Bag 1 BAG IVPB SCH (04:30)
[2021-09-04 05:12] LABS: Bacteria/HPF None Seen HPF (None Seen); Bilirubin Negative (Negative); Blood, Urine Negative (Negative); Clarity Clear (Clear); Glucose, Urine (Dipstick) Greater than 1000 mg/dL (Negative); Ketone, Urine 40 mg/dL (Negative); Leukocyte Negative Leu/uL (Negative); Nitrite Negative (Negative); Protein, Urine (Dipstick) Negative (Neg-Trace); RBC/HPF 0-3 HPF (0-3); Specific Gravity, Urine 1.018 (1.002-1.036); Squamous Epithelial 0-3 HPF (0-3); Urobilinogen Normal mg/dL (Less than 2); WBC/HPF 0-3 HPF (0-3); pH, Urine 5.5 (5.0-9.0)
[2021-09-04 07:51] VITALS: TEMP 97.4
[2021-09-04] MEDS ORDERED: Enoxaparin Sodium 40 MG/0.4 ML SYRINGE SC SCH (09:00)
[2021-09-04 09:04] LABS: Anion Gap 15 mmol/L (10-20); BUN (Urea Nitrogen) 7 mg/dL (7.0-18.7); Calc. Creatinine Clearance 174 mL/min (70-130); Carbon Dioxide 14 mmol/L (22-29); Chloride 109 mmol/L (98-107); Glucose 178 mg/dL (70-105); Potassium 4.7 mmol/L (3.5-5.1); Sodium 133 mmol/L (136-145)
[2021-09-04] MEDS ORDERED: Dextrose 5% in Water 1,000 ML IV PRN (11:33)
[2021-09-04] MEDS ORDERED: HumaLOG 300 UNITS/3 ML VIAL SC PRN (11:33)
[2021-09-04] MEDS ORDERED: Dextrose 50% Abboject 50 ML SYRINGE SLOW IVP PRN (11:33)
[2021-09-04] MEDS ORDERED: Insulin Glargine 30 UNITS/0.3 ML VIAL SC SCH (11:45)
[2021-09-04 11:55] LABS: SARS-CoV-2 PCR by NAA Not Detected (NotDetected)
== END 2021-09-04 15:14 | disposition home or self-care (01) | DRG 638 ==
LOC: ERS 16:39 → IMCU/EMU 18:40
PROVIDERS: ADMIT Internal Medicine; ATTEND Family Medicine
DX: E10.10 Type 1 diabetes mellitus with ketoacidosis without coma (principal); E87.1 Hypo-osmolality and hyponatremia; N17.9 Acute kidney failure, unspecified; F41.9 Anxiety disorder, unspecified; F32.A Depression, unspecified; D72.829 Elevated white blood cell count, unspecified; Z20.822 Contact with and (suspected) exposure to COVID-19; Z79.4 Long term (current) use of insulin
CPT/HCPCS: 36415; 36416; 71045; 80048; 80053; 81001; 82010; 82550; 82805; 83735; 84100; 84484; 85025; J1650; J1815; J2405; J3475; J3480; J3490; J7042; U0003; U0005

== ENCOUNTER 2022-09-15 09:42 | Inpatient (IN) | payer OTHER, SELFPAY ==
[2022-09-15] MEDS ORDERED: WATER IV SCH ×3 (10:45→18:30)
[2022-09-15] MEDS ORDERED: ACETYLCYSTEINE IV SCH ×3 (10:45→18:30)
[2022-09-15] MEDS ORDERED: DEXTROSE 5% IV SCH ×3 (10:45→18:30)
[2022-09-15 11:00] LABS: #Basophils 0.1 thou/uL (0.0-0.2); #Monocytes 0.5 thou/uL (0.11-0.59); #Neutrophils 10.2 thou/uL (1.40-6.50); %Basophils 0.6 % (0.0-1.0); %Eosinophils 0.2 % (0.0-10.0); %Lymphocytes 9.1 % (21.0-51.0); %Monocytes 3.9 % (0.0-10.0); %Neutrophils 85.8 % (42.0-75.0); Hemoglobin 15.3 g/dL (12.0-16.0); Mean Corpuscular HGB CONC 32.7 g/dL (32.0-36.0); Mean Corpuscular Hemoglobin 30.6 pg (27.0-31.0); Mean Corpuscular Volume 93.6 fl (78.0-98.0); Mean Platelet Volume 10.6 fL (7.4-10.4); Platelet Count 260 10x3/uL (130-400); RBC Distribution Width 11.9 % (11.5-14.5); White Blood Cell (WBC) Count 11.9 10x3/uL (4.8-10.8)
[2022-09-15 11:07] LABS: Prothrombin Time 13.2 sec (12.0-14.7)
[2022-09-15 11:08] LABS: PTT 26.4 sec (22.9-36.1)
[2022-09-15 11:09] LABS: Pregnancy Test - Urine (BHCG) Negative (Negative); Pregu Control Background? CLEAR/WHITE (CLR/WHITE); Pregu Control Bar Appear? YES (CONTROL BAR)
[2022-09-15 11:17] LABS: ALT (SGPT) 11 U/L (8-55); AST (SGOT) 8 U/L (5-34); Albumin 4.6 g/dL (3.5-5.0); Alcohol Less than 10 mg/dL (Less than 10); Alkaline Phosphatase 105 U/L (40-110); Anion Gap 23 mmol/L (10-20); BUN (Urea Nitrogen) 8 mg/dL (7.0-18.7); Bilirubin, Total 0.3 mg/dL (0.2-1.2); Calc. Creatinine Clearance 0 mL/min (70-130); Calcium 9.4 mg/dL (7.8-10.44); Carbon Dioxide 11 mmol/L (22-29); Chloride 101 mmol/L (98-107); Estimated GFR 98; Globulin 3.8 g/dL (2.4-3.5); Glucose 277 mg/dL (70-105); Potassium 4.7 mmol/L (3.5-5.1); Protein, Total 8.4 g/dL (6.0-8.3); Salicylate Less than 8.0 mg/dL (15.0-30.0); Sodium 130 mmol/L (136-145)
[2022-09-15 11:17] LABS: Amphetamine Not Detected (NotDetected); Barbiturates Screen Not Detected (NotDetected); Benzodiazepine Screen Not Detected (NotDetected); Cocaine Metabolite Screen Not Detected (NotDetected); Methadone Not Detected (NotDetected); Methamphetamine Not Detected (NotDetected); Opiate Screen Not Detected (NotDetected); Oxycodone Screen Not Detected (NotDetected); Phencyclidine (PCP) Not Detected (NotDetected); THC/Cannabinoid Screen Detected (NotDetected); Tricyclic Screen Not Detected (NotDetected)
[2022-09-15] MEDS ORDERED: Ondansetron ODT 4 MG TAB PO PRN (12:22)
[2022-09-15] MEDS ORDERED: Ondansetron PF 4 MG/2 ML Vial IVP PRN (12:22)
[2022-09-15] MEDS ORDERED: Dextrose 5% in Water 1,000 ML IV PRN (12:22)
[2022-09-15] MEDS ORDERED: HumaLOG 300 UNITS/3 ML VIAL SC PRN ×2 (12:22)
[2022-09-15] MEDS ORDERED: Dextrose 50% Abboject 50 ML SYRINGE SLOW IVP PRN ×2 (12:22→13:19)
[2022-09-15] MEDS ORDERED: Ondansetron PF 4 MG/2 ML Vial ONE (12:30)
[2022-09-15] MEDS ORDERED: oxyCODONE 5 MG TAB PO PRN (13:02)
[2022-09-15] MEDS ORDERED: Electrolyte Replacement Protocol 1 EACH IVPB SCH (13:19)
[2022-09-15] MEDS ORDERED: Sodium Chloride 0.9% 1,000 ML IV PRN ×4 (13:19)
[2022-09-15] MEDS ORDERED: D5 1/2 NS w/20 mEq KCL 1,000 ML IV PRN (13:19)
[2022-09-15] MEDS ORDERED: Dextrose 5 %-0.45 % NaCl 1,000 ML IV PRN (13:19)
[2022-09-15] MEDS ORDERED: NS 0.9% w/ 20 MEQ KCL 1,000 ML IV PRN ×2 (13:19)
[2022-09-15] MEDS ORDERED: HUMULIN R 100 UNITS in Sodium Chloride 0.9% 100 ML IVPB SCH (13:30)
[2022-09-15 14:16] LABS: Base Excess -20.1 mEq/L (-2.0 to +3.0); Calcium, Ionized (venous) 1.09 mmol/L (1.16-1.32); Chloride (VBG) 105 mmol/L (98-106); Hematocrit-VBG 46 % (36.0-47.0); Hemoglobin (Hb) 15.6 g/dL (11.7-15.5); Potassium (VBG) 4.53 mmol/L (3.70-5.30); Sodium 134.2 mmol/L (133-146)
[2022-09-15 14:18] VITALS: BMI 28.3
[2022-09-15 14:18] LABS: Actual Bicarbonate (HCO3v) 8.3 mEq/L (22-28); pH (venous) 7.095 (7.32-7.43)
[2022-09-15] MEDS ORDERED: Sodium Bicarb 50 MEQ/50 ML VIAL ONE (14:31)
[2022-09-15 14:44] LABS: Lactic Acid 1.6 mmol/L (0.5-2.2)
[2022-09-15] MEDS ORDERED: Sodium Bicarb 50 MEQ/50 ML Abboject 8.4% SYRINGE IVP SCH (14:45)
[2022-09-15 14:46] LABS: BUN (Urea Nitrogen) 7 mg/dL (7.0-18.7); Calc. Creatinine Clearance 131 mL/min (70-130); Calcium 8.5 mg/dL (7.8-10.44); Chloride 107 mmol/L (98-107); Estimated GFR 109; Glucose 267 mg/dL (70-105); Potassium 4.5 mmol/L (3.5-5.1); Sodium 131 mmol/L (136-145)
[2022-09-15 15:04] LABS: Carbon Dioxide Less than 8 mmol/L (22-29)
[2022-09-15] MEDS ORDERED: Lactated Ringer's 1,000 ML IV SCH ×2 (15:30→23:45)
[2022-09-15 15:54] LABS: Bacteria/HPF None Seen HPF (None Seen); Bilirubin Negative (Negative); Blood, Urine Negative (Negative); CAUTI Indications for Culture Alt mental st,lethar; Clarity Clear (Clear); Glucose, Urine (Dipstick) Greater than 1000 mg/dL (Negative); Ketone, Urine Greater than 150 mg/dL (Negative); Leukocyte Negative Leu/uL (Negative); Nitrite Negative (Negative); Protein, Urine (Dipstick) 20 mg/dL (Neg-Trace); RBC/HPF 0-3 HPF (0-3); Specific Gravity, Urine 1.042 (1.002-1.036); Squamous Epithelial 0-3 HPF (0-3); Urobilinogen Normal mg/dL (Less than 2); WBC/HPF 0-3 HPF (0-3)
[2022-09-15 15:55] LABS: Urine Culture Reflex No No
[2022-09-15] MEDS: Morphine IR 10 MG/5 ML UDCUP PO PRN (16:21)
[2022-09-15] MEDS ORDERED: Insulin Regular 300 UNITS/3 ML VIAL SC SCH (17:00)
[2022-09-15 17:49] LABS: Chloride 110 mmol/L (98-107); Potassium 3.8 mmol/L (3.5-5.1); Sodium 135 mmol/L (136-145)
[2022-09-15 17:50] LABS: Glucose 190 mg/dL (70-105)
[2022-09-15 17:51] LABS: Anion Gap 19 mmol/L (10-20); Carbon Dioxide 10 mmol/L (22-29)
[2022-09-15 17:53] LABS: Calc. Creatinine Clearance 148 mL/min (70-130); Estimated GFR 123
[2022-09-15 17:54] LABS: BUN (Urea Nitrogen) 6 mg/dL (7.0-18.7)
[2022-09-15] MEDS ORDERED: Insulin Glargine 30 UNITS/0.3 ML VIAL SC SCH (21:00)
[2022-09-15] MEDS: Pantoprazole 40 MG VIAL IVP SCH (21:44)
[2022-09-15] MEDS: Insulin Glargine 30 UNITS/0.3 ML VIAL SC SCH (21:44)
[2022-09-15] MEDS: Amoxicillin/Potassium Clav 500 MG TAB PO SCH (21:44)
[2022-09-15 21:52] LABS: Anion Gap 15 mmol/L (10-20); BUN (Urea Nitrogen) 4 mg/dL (7.0-18.7); Calc. Creatinine Clearance 144 mL/min (70-130); Calcium 7.8 mg/dL (7.8-10.44); Carbon Dioxide 14 mmol/L (22-29); Chloride 108 mmol/L (98-107); Estimated GFR 122; Glucose 212 mg/dL (70-105); Potassium 3.7 mmol/L (3.5-5.1); Sodium 133 mmol/L (136-145)
[2022-09-16 01:24] LABS: Anion Gap 11 mmol/L (10-20); BUN (Urea Nitrogen) 4 mg/dL (7.0-18.7); Calc. Creatinine Clearance 165 mL/min (70-130); Calcium 8.3 mg/dL (7.8-10.44); Carbon Dioxide 15 mmol/L (22-29); Chloride 110 mmol/L (98-107); Estimated GFR 126; Glucose 168 mg/dL (70-105); Potassium 3.3 mmol/L (3.5-5.1); Sodium 133 mmol/L (136-145)
[2022-09-16 04:28] LABS: Anion Gap 9 mmol/L (10-20); BUN (Urea Nitrogen) 4 mg/dL (7.0-18.7); Calc. Creatinine Clearance 171 mL/min (70-130); Calcium 8.6 mg/dL (7.8-10.44); Carbon Dioxide 18 mmol/L (22-29); Chloride 111 mmol/L (98-107); Estimated GFR 127; Glucose 139 mg/dL (70-105); Potassium 3.1 mmol/L (3.5-5.1); Sodium 135 mmol/L (136-145)
[2022-09-16] MEDS ORDERED: Potassium Chloride 20 MEQ TAB PO SCH ×3 (05:00→12:00)
[2022-09-16] MEDS: Morphine IR 10 MG/5 ML UDCUP PO PRN ×2 (06:20→13:14)
[2022-09-16] MEDS: Insulin Glargine 30 UNITS/0.3 ML VIAL SC SCH ×2 (08:39→21:42)
[2022-09-16] MEDS: Pantoprazole 40 MG VIAL IVP SCH ×2 (08:39→21:42)
[2022-09-16] MEDS: Amoxicillin/Potassium Clav 500 MG TAB PO SCH ×2 (08:39→21:42)
[2022-09-16] MEDS: Insulin Regular 300 UNITS/3 ML VIAL SC SCH ×3 (08:39→18:08)
[2022-09-16] MEDS ORDERED: Insulin Glargine 30 UNITS/0.3 ML VIAL SC SCH (09:00)
[2022-09-16 10:15] LABS: #Eosinphils 0.1 thou/uL (0.0-0.7); #Monocytes 0.8 thou/uL (0.11-0.59); #Neutrophils 7.5 thou/uL (1.40-6.50); %Basophils 0.4 % (0.0-1.0); %Eosinophils 0.9 % (0.0-10.0); %Lymphocytes 11.6 % (21.0-51.0); %Monocytes 7.9 % (0.0-10.0); %Neutrophils 78.9 % (42.0-75.0); Mean Corpuscular HGB CONC 32.8 g/dL (32.0-36.0); Mean Corpuscular Hemoglobin 30.2 pg (27.0-31.0); Mean Corpuscular Volume 92.1 fl (78.0-98.0); Mean Platelet Volume 10.6 fL (7.4-10.4); Platelet Count 207 10x3/uL (130-400); RBC Distribution Width 11.9 % (11.5-14.5); Red Blood Cell (RBC) Count 4.07 mill/uL (4.20-5.40); White Blood Cell (WBC) Count 9.5 10x3/uL (4.8-10.8)
[2022-09-16 10:21] LABS: Hemoglobin 12.3 g/dL (12.0-16.0)
[2022-09-16 10:31] LABS: INR-International Normal Ratio 1.1; Prothrombin Time 14.3 sec (12.0-14.7)
[2022-09-16 11:01] LABS: ALT (SGPT) 8 U/L (8-55); AST (SGOT) 13 U/L (5-34); Acetaminophen Less than 10.0 mcg/mL (10.0-30.0); Albumin 3.1 g/dL (3.5-5.0); Alkaline Phosphatase 69 U/L (40-110); Anion Gap 10 mmol/L (10-20); BUN (Urea Nitrogen) 5 mg/dL (7.0-18.7); Bilirubin, Total 0.3 mg/dL (0.2-1.2); Calc. Creatinine Clearance 192 mL/min (70-130); Calcium 8.5 mg/dL (7.8-10.44); Carbon Dioxide 18 mmol/L (22-29); Chloride 111 mmol/L (98-107); Estimated GFR 130; Globulin 2.4 g/dL (2.4-3.5); Glucose 110 mg/dL (70-105); Potassium 3.2 mmol/L (3.5-5.1); Protein, Total 5.5 g/dL (6.0-8.3); Sodium 136 mmol/L (136-145)
[2022-09-17 07:38] LABS: ALT (SGPT) 12 U/L (8-55); AST (SGOT) 14 U/L (5-34); Albumin 3.2 g/dL (3.5-5.0); Alkaline Phosphatase 73 U/L (40-110); Anion Gap 11 mmol/L (10-20); BUN (Urea Nitrogen) 6 mg/dL (7.0-18.7); Bilirubin, Total Less than 0.2 mg/dL (0.2-1.2); Calc. Creatinine Clearance 199 mL/min (70-130); Calcium 8.5 mg/dL (7.8-10.44); Carbon Dioxide 23 mmol/L (22-29); Chloride 108 mmol/L (98-107); Estimated GFR 131; Globulin 2.5 g/dL (2.4-3.5); Glucose 126 mg/dL (70-105); Potassium 3.2 mmol/L (3.5-5.1); Protein, Total 5.7 g/dL (6.0-8.3); Sodium 139 mmol/L (136-145)
[2022-09-17 07:43] VITALS: TEMP 97.3
[2022-09-17] MEDS ORDERED: Potassium Chloride 20 MEQ TAB PO SCH (08:00)
[2022-09-17] MEDS: Insulin Regular 300 UNITS/3 ML VIAL SC SCH ×2 (09:06→14:04)
[2022-09-17] MEDS: Amoxicillin/Potassium Clav 500 MG TAB PO SCH (09:07)
[2022-09-17] MEDS: Insulin Glargine 30 UNITS/0.3 ML VIAL SC SCH (09:08)
[2022-09-17] MEDS: Pantoprazole 40 MG VIAL IVP SCH (09:08)
[2022-09-17] MEDS: Morphine IR 10 MG/5 ML UDCUP PO PRN ×2 (10:28→16:18)
== END 2022-09-17 17:12 | disposition home or self-care (01) | DRG 917 ==
LOC: ERS 09:42 → 2NO 13:03 → IMCU/EMU 13:42
PROVIDERS: ADMIT Emergency Medicine; ATTEND Emergency Medicine
DX: T39.1X1A Poisoning by 4-Aminophenol derivatives, accidental (unintentional), initial encounter (principal); E10.10 Type 1 diabetes mellitus with ketoacidosis without coma; E87.1 Hypo-osmolality and hyponatremia; K04.01 Reversible pulpitis; F12.129 Cannabis abuse with intoxication, unspecified; F32.A Depression, unspecified; F41.9 Anxiety disorder, unspecified; K08.89 Other specified disorders of teeth and supporting structures; T39.311A Poisoning by propionic acid derivatives, accidental (unintentional), initial encounter; E87.6 Hypokalemia; E10.649 Type 1 diabetes mellitus with hypoglycemia without coma; K04.7 Periapical abscess without sinus; K25.9 Gastric ulcer, unspecified as acute or chronic, without hemorrhage or perforation; Z79.4 Long term (current) use of insulin; Y92.89 Other specified places as the place of occurrence of the external cause
CPT/HCPCS: 36415; 36416; 80048; 80053; 80143; 80306; 80307; 81001; 81025; 82010; 82805; 83605; 85025; 85610; 85730; 93005; 96365; 96366; 96375; C9113; J0132; J1650; J1815; J2405; J3480; J3490; J7070; J7120

== ENCOUNTER 2023-04-06 13:55 | Inpatient (IN) | payer BC, SELFPAY ==
[2023-04-06 15:12] LABS: #Basophils 0.1 thou/uL (0.0-0.2); #Monocytes 0.3 thou/uL (0.11-0.59); %Basophils 0.4 % (0.0-1.0); %Lymphocytes 4.4 % (21.0-51.0); %Monocytes 1.8 % (0.0-10.0); %Neutrophils 92.5 % (42.0-75.0); Hematocrit 50.2 % (36.0-47.0); Mean Corpuscular HGB CONC 31.9 g/dL (32.0-36.0); Mean Corpuscular Hemoglobin 30.3 pg (27.0-31.0); Mean Corpuscular Volume 95.1 fl (78.0-98.0); Mean Platelet Volume 10.9 fL (7.4-10.4); Platelet Count 279 10x3/uL (130-400); Red Blood Cell (RBC) Count 5.28 mill/uL (4.20-5.40); White Blood Cell (WBC) Count 16.2 10x3/uL (4.8-10.8)
[2023-04-06 15:17] LABS: Base Excess -23.6 mEq/L (-2.0 to +3.0); Chloride (VBG) 102 mmol/L (98-106); Hematocrit-VBG 48 % (36.0-47.0); Hemoglobin (Hb) 16.4 g/dL (11.7-15.5); Potassium (VBG) 5.91 mmol/L (3.70-5.30); Sodium 138 mmol/L (133-146)
[2023-04-06 15:19] LABS: Actual Bicarbonate (HCO3v) 7.2 mEq/L (22-28)
[2023-04-06 15:30] LABS: ALT (SGPT) 14 U/L (8-55); AST (SGOT) 10 U/L (5-34); Albumin 4.5 g/dL (3.5-5.0); Alkaline Phosphatase 116 U/L (40-110); BUN (Urea Nitrogen) 19 mg/dL (7.0-18.7); Bilirubin, Total 0.4 mg/dL (0.2-1.2); Calc. Creatinine Clearance 0 mL/min (70-130); Calcium 9.4 mg/dL (7.8-10.44); Chloride 102 mmol/L (98-107); Estimated GFR 67; Globulin 3.5 g/dL (2.4-3.5); Lipase Less than 4 U/L (8-78); Magnesium 2.1 mg/dL (1.6-2.6); Phosphorus 5.8 mg/dL (2.3-4.7); Sodium 133 mmol/L (136-145)
[2023-04-06 15:38] LABS: Carbon Dioxide Less than 8 mmol/L (22-29); Glucose 457 mg/dL (70-105); Potassium 6.1 mmol/L (3.5-5.1)
[2023-04-06 15:39] LABS: Troponin I Less than 0.010 ng/mL (< 0.028)
[2023-04-06] MEDS ORDERED: INSULIN REGULAR IN 0.9 % NACL 100 UNITS/100 ML BAG ONE (15:47)
[2023-04-06] MEDS ORDERED: Insulin Regular 300 UNITS/3 ML VIAL ONE (15:47)
[2023-04-06 17:37] LABS: Bacteria/HPF None Seen HPF (None Seen); Bilirubin Negative (Negative); Blood, Urine 2+ (Negative); CAUTI Indications for Culture Pelvic or flank pain; Clarity Clear (Clear); Glucose, Urine (Dipstick) Greater than 1000 mg/dL (Negative); Ketone, Urine Greater than 150 mg/dL (Negative); Leukocyte Negative Leu/uL (Negative); Nitrite Negative (Negative); Protein, Urine (Dipstick) 30 mg/dL (Neg-Trace); Specific Gravity, Urine 1.022 (1.002-1.036); Squamous Epithelial 0-3 HPF (0-3); Urobilinogen Normal mg/dL (Less than 2); WBC/HPF 0-3 HPF (0-3)
[2023-04-06 17:39] LABS: Urine Culture Reflex No No
[2023-04-06 18:25] LABS: Pregnancy Test - Urine (BHCG) Negative (Negative); Pregu Control Background? CLEAR/WHITE (CLR/WHITE); Pregu Control Bar Appear? YES (CONTROL BAR); Specific Gravity 1.022 (1.002-1.036)
[2023-04-06] MEDS ORDERED: Dextrose 5 %-0.45 % NaCl 1,000 ML IV PRN (18:26)
[2023-04-06] MEDS ORDERED: Dextrose 50% Abboject 50 ML SYRINGE SLOW IVP PRN (18:26)
[2023-04-06] MEDS ORDERED: Electrolyte Replacement Protocol 1 EACH IVPB PRN (18:26)
[2023-04-06] MEDS ORDERED: Sodium Chloride 0.9% 1,000 ML IV PRN ×4 (18:26)
[2023-04-06] MEDS ORDERED: NS 0.9% w/ 20 MEQ KCL 1,000 ML IV PRN ×2 (18:26)
[2023-04-06] MEDS ORDERED: Acetaminophen 325 MG TAB PO PRN (18:28)
[2023-04-06] MEDS ORDERED: Ondansetron ODT 4 MG TAB PO PRN (18:28)
[2023-04-06] MEDS ORDERED: Ondansetron PF 4 MG/2 ML Vial IVP PRN (18:28)
[2023-04-06] MEDS ORDERED: Calcium Carbonate 500 MG ChewTAB PO PRN (18:28)
[2023-04-06] MEDS ORDERED: Senokot S 8.6-50 MG TAB PO PRN (18:28)
[2023-04-06] MEDS ORDERED: HUMULIN R 100 UNITS in Sodium Chloride 0.9% 100 ML IVPB SCH (18:30)
[2023-04-06 20:11] LABS: BUN (Urea Nitrogen) 15 mg/dL (7.0-18.7); Calc. Creatinine Clearance 0 mL/min (70-130); Calcium 8.6 mg/dL (7.8-10.44); Chloride 114 mmol/L (98-107); Estimated GFR 95; Glucose 220 mg/dL (70-105); Potassium 4.8 mmol/L (3.5-5.1); Sodium 139 mmol/L (136-145)
[2023-04-06 20:14] LABS: Carbon Dioxide Less than 8 mmol/L (22-29)
[2023-04-06] MEDS ORDERED: Famotidine/PF 20 mg/2ml Vial SLOW IVP SCH (21:00)
[2023-04-06] MEDS: D5 1/2 NS w/20 mEq KCL 1,000 ML IV PRN (21:06)
[2023-04-06 21:24] VITALS: BMI 27.6
[2023-04-06 23:10] LABS: Anion Gap 18 mmol/L (10-20); BUN (Urea Nitrogen) 13 mg/dL (7.0-18.7); Calc. Creatinine Clearance 117 mL/min (70-130); Calcium 8.4 mg/dL (7.8-10.44); Chloride 114 mmol/L (98-107); Estimated GFR 94; Glucose 211 mg/dL (70-105); Potassium 4.6 mmol/L (3.5-5.1); Sodium 136 mmol/L (136-145)
[2023-04-06 23:11] LABS: Carbon Dioxide 9 mmol/L (22-29)
[2023-04-07] MEDS: D5 1/2 NS w/20 mEq KCL 1,000 ML IV PRN ×2 (00:46→04:44)
[2023-04-07 03:09] LABS: Anion Gap 10 mmol/L (10-20); BUN (Urea Nitrogen) 10 mg/dL (7.0-18.7); Calc. Creatinine Clearance 127 mL/min (70-130); Calcium 8.2 mg/dL (7.8-10.44); Carbon Dioxide 13 mmol/L (22-29); Chloride 113 mmol/L (98-107); Estimated GFR 104; Glucose 223 mg/dL (70-105); Potassium 3.7 mmol/L (3.5-5.1); Sodium 132 mmol/L (136-145)
[2023-04-07 06:32] LABS: #Monocytes 0.8 thou/uL (0.11-0.59); #Neutrophils 8.9 thou/uL (1.40-6.50); %Basophils 0.2 % (0.0-1.0); %Eosinophils 0.3 % (0.0-10.0); %Lymphocytes 18.6 % (21.0-51.0); %Monocytes 6.9 % (0.0-10.0); %Neutrophils 73.8 % (42.0-75.0); Mean Corpuscular HGB CONC 33.1 g/dL (32.0-36.0); Mean Platelet Volume 10.3 fL (7.4-10.4); Platelet Count 205 10x3/uL (130-400); RBC Distribution Width 12.1 % (11.5-14.5); Red Blood Cell (RBC) Count 3.97 mill/uL (4.20-5.40); White Blood Cell (WBC) Count 12.1 10x3/uL (4.8-10.8)
[2023-04-07 06:34] LABS: Hematocrit 35.9 % (36.0-47.0); Hemoglobin 11.9 g/dL (12.0-16.0); Mean Corpuscular Volume 90.4 fl (78.0-98.0)
[2023-04-07 06:40] LABS: Hemoglobin A1c 13.4 % (4.0-6.0)
[2023-04-07 07:22] LABS: Anion Gap 7 mmol/L (10-20); BUN (Urea Nitrogen) 8 mg/dL (7.0-18.7); Calc. Creatinine Clearance 139 mL/min (70-130); Calcium 8.2 mg/dL (7.8-10.44); Carbon Dioxide 16 mmol/L (22-29); Chloride 114 mmol/L (98-107); Estimated GFR 116; Glucose 141 mg/dL (70-105); Magnesium 1.5 mg/dL (1.6-2.6); Phosphorus 1.2 mg/dL (2.3-4.7); Potassium 3.5 mmol/L (3.5-5.1); Sodium 133 mmol/L (136-145)
[2023-04-07] MEDS ORDERED: Dextrose 50% Abboject 50 ML SYRINGE SLOW IVP PRN ×2 (07:42→07:47)
[2023-04-07] MEDS ORDERED: Dextrose 5% in Water 1,000 ML IV PRN (07:42)
[2023-04-07] MEDS ORDERED: Insulin Regular 300 UNITS/3 ML VIAL SC PRN ×3 (07:42→19:26)
[2023-04-07] MEDS ORDERED: Glucagon 1 MG/ML KIT IM PRN (07:42)
[2023-04-07] MEDS ORDERED: Insulin Glargine 30 UNITS/0.3 ML VIAL SC SCH ×2 (07:45→09:00)
[2023-04-07] MEDS ORDERED: Magnesium Sulfate 4 GM in Sodium Chloride 0.9% 250 ML 250 ML IVPB SCH (07:45)
[2023-04-07] MEDS: 1/2 NS w/KCL 20 mEq 1,000 ML IV SCH ×3 (08:59→18:21)
[2023-04-07] MEDS: Famotidine 20 MG TAB PO SCH ×2 (08:59→21:15)
[2023-04-07] MEDS ORDERED: Magnesium Sulfate In Water 4 GM in Premix 1 BAG IVPB SCH (09:00)
[2023-04-07] MEDS ORDERED: FLU VACC QS2023-24(6MOS UP)/PF 60 MCG/0.5 ML SYRINGE IM ONE (09:00)
[2023-04-07 13:59] LABS: pH (venous) 6.984 (7.32-7.43)
[2023-04-08] MEDS: 1/2 NS w/KCL 20 mEq 1,000 ML IV SCH (03:09)
[2023-04-08 05:29] LABS: #Eosinphils 0.1 thou/uL (0.0-0.7); #Monocytes 0.4 thou/uL (0.11-0.59); #Neutrophils 2.6 thou/uL (1.40-6.50); %Basophils 0.5 % (0.0-1.0); %Lymphocytes 43.1 % (21.0-51.0); %Monocytes 7.6 % (0.0-10.0); %Neutrophils 46.6 % (42.0-75.0); Hematocrit 33.2 % (36.0-47.0); Hemoglobin 11.1 g/dL (12.0-16.0); Mean Corpuscular HGB CONC 33.4 g/dL (32.0-36.0); Mean Corpuscular Hemoglobin 30.1 pg (27.0-31.0); Mean Platelet Volume 10.6 fL (7.4-10.4); Platelet Count 179 10x3/uL (130-400); RBC Distribution Width 12.6 % (11.5-14.5); Red Blood Cell (RBC) Count 3.69 mill/uL (4.20-5.40); White Blood Cell (WBC) Count 5.6 10x3/uL (4.8-10.8)
[2023-04-08 06:24] LABS: Anion Gap 12 mmol/L (10-20); BUN (Urea Nitrogen) 5 mg/dL (7.0-18.7); Calc. Creatinine Clearance 164 mL/min (70-130); Carbon Dioxide 18 mmol/L (22-29); Chloride 108 mmol/L (98-107); Estimated GFR 126; Glucose 187 mg/dL (70-105); Magnesium 1.7 mg/dL (1.6-2.6); Phosphorus 1.9 mg/dL (2.3-4.7); Potassium 3.8 mmol/L (3.5-5.1); Sodium 134 mmol/L (136-145)
[2023-04-08] MEDS: Famotidine 20 MG TAB PO SCH (08:12)
[2023-04-08] MEDS ORDERED: Insulin Glargine 30 UNITS/0.3 ML VIAL SC SCH (09:00)
[2023-04-08] MEDS ORDERED: Magnesium 2 GM/50 ML(in water) 2 GM in Premix 1 BAG IVPB SCH ×2 (09:00→09:15)
[2023-04-08] MEDS ORDERED: K-Phos Neutral 250 MG TAB PO SCH (09:00)
[2023-04-08 11:08] VITALS: BP 133/84; TEMP 97.8
== END 2023-04-08 12:18 | disposition home or self-care (01) | DRG 638 ==
LOC: ERS 13:55 → IMCU/EMU 18:11 → T4-A 04-07 16:46
PROVIDERS: ADMIT Internal Medicine; ATTEND Internal Medicine
DX: E10.10 Type 1 diabetes mellitus with ketoacidosis without coma (principal); E87.1 Hypo-osmolality and hyponatremia; N17.9 Acute kidney failure, unspecified; E87.5 Hyperkalemia; E86.0 Dehydration; F12.129 Cannabis abuse with intoxication, unspecified; D72.829 Elevated white blood cell count, unspecified; F32.A Depression, unspecified; F41.9 Anxiety disorder, unspecified; E83.42 Hypomagnesemia; E87.6 Hypokalemia; E83.39 Other disorders of phosphorus metabolism; Z79.4 Long term (current) use of insulin; Z79.899 Other long term (current) drug therapy
CPT/HCPCS: 36415; 36416; 80048; 80053; 81001; 81025; 82010; 82805; 83036; 83690; 83735; 84100; 84484; 85025; 93005; J1650; J1815; J2405; J3475; J3480; J3490; J7030; J7050; S0028

== ENCOUNTER 2023-05-22 19:46 | Inpatient (IN) | payer BC ==
[2023-05-22 20:29] LABS: Base Excess -14.8 mEq/L (-2.0 to +3.0); Calcium, Ionized (venous) 1.21 mmol/L (1.16-1.32); Chloride (VBG) 98 mmol/L (98-106); Hematocrit-VBG 44 % (36.0-47.0); Hemoglobin (Hb) 15.1 g/dL (11.7-15.5); Potassium (VBG) 4.45 mmol/L (3.70-5.30); Sodium 135 mmol/L (133-146)
[2023-05-22 20:30] LABS: pH (venous) 7.184 (7.32-7.43)
[2023-05-22 20:31] LABS: Actual Bicarbonate (HCO3v) 12.3 mEq/L (22-28)
[2023-05-22 20:34] LABS: #Basophils 0.1 thou/uL (0.0-0.2); #Monocytes 0.6 thou/uL (0.11-0.59); #Neutrophils 10.7 thou/uL (1.40-6.50); %Basophils 0.5 % (0.0-1.0); %Eosinophils 0.2 % (0.0-10.0); %Lymphocytes 14.6 % (21.0-51.0); %Monocytes 4.5 % (0.0-10.0); %Neutrophils 79.4 % (42.0-75.0); Hematocrit 44.9 % (36.0-47.0); Hemoglobin 14.8 g/dL (12.0-16.0); Mean Corpuscular Hemoglobin 30.1 pg (27.0-31.0); Mean Corpuscular Volume 91.4 fl (78.0-98.0); Mean Platelet Volume 11.5 fL (7.4-10.4); Platelet Count 242 10x3/uL (130-400); Red Blood Cell (RBC) Count 4.91 mill/uL (4.20-5.40); White Blood Cell (WBC) Count 13.5 10x3/uL (4.8-10.8)
[2023-05-22] MEDS ORDERED: Ondansetron PF 4 MG/2 ML Vial ONE (20:36)
[2023-05-22 20:49] LABS: Phosphorus 4.4 mg/dL (2.3-4.7)
[2023-05-22 20:54] LABS: ALT (SGPT) 12 U/L (8-55); AST (SGOT) 10 U/L (5-34); Albumin 4.6 g/dL (3.5-5.0); Alkaline Phosphatase 98 U/L (40-110); Anion Gap 30 mmol/L (10-20); BUN (Urea Nitrogen) 21 mg/dL (7.0-18.7); Bilirubin, Total 1.3 mg/dL (0.2-1.2); Calc. Creatinine Clearance 0 mL/min (70-130); Calcium 9.9 mg/dL (7.8-10.44); Carbon Dioxide 11 mmol/L (22-29); Chloride 98 mmol/L (98-107); Estimated GFR 88; Glucose 370 mg/dL (70-105); Lipase 4 U/L (8-78); Magnesium 1.6 mg/dL (1.6-2.6); Potassium 4.5 mmol/L (3.5-5.1); Protein, Total 7.6 g/dL (6.0-8.3); Sodium 134 mmol/L (136-145)
[2023-05-22 20:56] LABS: Troponin I Less than 0.010 ng/mL (< 0.028)
[2023-05-22] MEDS ORDERED: INSULIN REGULAR IN 0.9 % NACL 100 UNITS/100 ML BAG ONE (21:25)
[2023-05-22] MEDS ORDERED: Potassium Chloride 20 MEQ (100 mL) BAG ONE (21:37)
[2023-05-22] MEDS ORDERED: NS 0.9% w/ 20 MEQ KCL 1,000 ML ONE (21:40)
[2023-05-22 22:04] LABS: Bacteria/HPF None Seen HPF (None Seen); Bilirubin Negative (Negative); Blood, Urine Negative (Negative); CAUTI Indications for Culture Pelvic or flank pain; Clarity Clear (Clear); Glucose, Urine (Dipstick) Greater than 1000 mg/dL (Negative); Ketone, Urine Greater than 150 mg/dL (Negative); Leukocyte Negative Leu/uL (Negative); Nitrite Negative (Negative); Protein, Urine (Dipstick) Negative (Neg-Trace); RBC/HPF 0-3 HPF (0-3); Specific Gravity, Urine 1.027 (1.002-1.036); Squamous Epithelial 0-3 HPF (0-3); Urobilinogen Normal mg/dL (Less than 2); WBC/HPF 0-3 HPF (0-3)
[2023-05-22 22:06] LABS: Urine Culture Reflex No No
[2023-05-22] MEDS ORDERED: Ondansetron ODT 4 MG TAB PO PRN (22:12)
[2023-05-22] MEDS ORDERED: NS 0.9% w/ 20 MEQ KCL 1,000 ML IV PRN (22:12)
[2023-05-22] MEDS ORDERED: Dextrose 5 %-0.45 % NaCl 1,000 ML IV PRN (22:12)
[2023-05-22] MEDS ORDERED: Electrolyte Replacement Protocol 1 EACH IVPB PRN (22:12)
[2023-05-22] MEDS ORDERED: Ondansetron PF 4 MG/2 ML Vial IVP PRN (22:12)
[2023-05-22] MEDS ORDERED: Sodium Chloride 0.9% 1,000 ML IV PRN ×2 (22:12)
[2023-05-22] MEDS ORDERED: Acetaminophen 650 MG Suppository PR PRN (22:12)
[2023-05-22] MEDS ORDERED: HUMULIN R 100 UNITS in Sodium Chloride 0.9% 100 ML IVPB SCH (22:15)
[2023-05-22] MEDS: NS 0.9% w/ 20 MEQ KCL 1,000 ML IV PRN (22:53)
[2023-05-22 22:54] VITALS: BMI 27.3
[2023-05-22] MEDS: Magnesium 2 GM/50 ML(in water) 2 GM in Premix 1 BAG IVPB SCH (23:31)
[2023-05-23 00:17] LABS: Anion Gap 21 mmol/L (10-20); BUN (Urea Nitrogen) 16 mg/dL (7.0-18.7); Calc. Creatinine Clearance 137 mL/min (70-130); Calcium 8.4 mg/dL (7.8-10.44); Carbon Dioxide 10 mmol/L (22-29); Chloride 108 mmol/L (98-107); Estimated GFR 116; Glucose 185 mg/dL (70-105); Potassium 4.5 mmol/L (3.5-5.1); Sodium 134 mmol/L (136-145)
[2023-05-23] MEDS: D5 1/2 NS w/20 mEq KCL 1,000 ML IV PRN (01:35)
[2023-05-23] MEDS: Dextrose 50% Abboject 50 ML SYRINGE SLOW IVP PRN (01:35)
[2023-05-23 03:33] LABS: #Basophils 0.1 thou/uL (0.0-0.2); #Neutrophils 12.4 thou/uL (1.40-6.50); %Basophils 0.3 % (0.0-1.0); %Eosinophils 0.1 % (0.0-10.0); %Lymphocytes 12.8 % (21.0-51.0); %Monocytes 6.3 % (0.0-10.0); Mean Corpuscular HGB CONC 33.7 g/dL (32.0-36.0); Mean Corpuscular Hemoglobin 30.6 pg (27.0-31.0); Mean Corpuscular Volume 90.8 fl (78.0-98.0); Mean Platelet Volume 10.8 fL (7.4-10.4); Platelet Count 209 10x3/uL (130-400); RBC Distribution Width 12.2 % (11.5-14.5); Red Blood Cell (RBC) Count 3.82 mill/uL (4.20-5.40); White Blood Cell (WBC) Count 15.5 10x3/uL (4.8-10.8)
[2023-05-23 03:41] LABS: Hematocrit 34.7 % (36.0-47.0); Hemoglobin 11.7 g/dL (12.0-16.0)
[2023-05-23 03:53] LABS: Anion Gap 10 mmol/L (10-20); Anion Gap 12 mmol/L (10-20); BUN (Urea Nitrogen) 12 mg/dL (7.0-18.7); Calc. Creatinine Clearance 157 mL/min (70-130); Calc. Creatinine Clearance 159 mL/min (70-130); Calcium 7.9 mg/dL (7.8-10.44); Carbon Dioxide 14 mmol/L (22-29); Carbon Dioxide 15 mmol/L (22-29); Chloride 110 mmol/L (98-107); Chloride 111 mmol/L (98-107); Estimated GFR 125; Glucose 205 mg/dL (70-105); Glucose 207 mg/dL (70-105); Potassium 4.4 mmol/L (3.5-5.1); Potassium 4.5 mmol/L (3.5-5.1); Sodium 131 mmol/L (136-145); Sodium 132 mmol/L (136-145)
[2023-05-23] MEDS ORDERED: Dextrose 5% in Water 1,000 ML IV PRN (04:08)
[2023-05-23] MEDS ORDERED: Dextrose 50% Abboject 50 ML SYRINGE SLOW IVP PRN (04:08)
[2023-05-23] MEDS ORDERED: Glucagon 1 MG/ML KIT IM PRN (04:08)
[2023-05-23] MEDS: Insulin Glargine 30 UNITS/0.3 ML VIAL SC SCH ×2 (04:39→20:23)
[2023-05-23] MEDS: Lactated Ringer's 1,000 ML IV SCH (04:40)
[2023-05-23] MEDS: Enoxaparin 40 MG (0.4 mL) SYRINGE SC SCH (09:03)
[2023-05-23 09:23] LABS: Anion Gap 11 mmol/L (10-20); BUN (Urea Nitrogen) 9 mg/dL (7.0-18.7); Calc. Creatinine Clearance 162 mL/min (70-130); Calcium 8.4 mg/dL (7.8-10.44); Carbon Dioxide 16 mmol/L (22-29); Chloride 110 mmol/L (98-107); Estimated GFR 126; Glucose 124 mg/dL (70-105); Potassium 4.3 mmol/L (3.5-5.1); Sodium 133 mmol/L (136-145)
[2023-05-23] MEDS: Sodium Bicarbonate Tab 325 MG TAB PO SCH ×2 (15:26→20:22)
[2023-05-23] MEDS: HumaLOG 300 UNITS/3 ML VIAL SC PRN (17:42)
[2023-05-24 03:59] LABS: #Eosinphils 0.1 thou/uL (0.0-0.7); #Monocytes 0.4 thou/uL (0.11-0.59); %Basophils 0.4 % (0.0-1.0); %Eosinophils 1.3 % (0.0-10.0); %Lymphocytes 35.4 % (21.0-51.0); %Monocytes 5.9 % (0.0-10.0); %Neutrophils 56.7 % (42.0-75.0); Hematocrit 35.5 % (36.0-47.0); Hemoglobin 11.9 g/dL (12.0-16.0); Mean Corpuscular HGB CONC 33.5 g/dL (32.0-36.0); Mean Corpuscular Hemoglobin 30.5 pg (27.0-31.0); Mean Platelet Volume 10.9 fL (7.4-10.4); Platelet Count 195 10x3/uL (130-400); RBC Distribution Width 12.3 % (11.5-14.5); White Blood Cell (WBC) Count 7.1 10x3/uL (4.8-10.8)
[2023-05-24 04:24] LABS: Anion Gap 12 mmol/L (10-20); BUN (Urea Nitrogen) 7 mg/dL (7.0-18.7); Calc. Creatinine Clearance 170 mL/min (70-130); Calcium 8.3 mg/dL (7.8-10.44); Carbon Dioxide 21 mmol/L (22-29); Chloride 106 mmol/L (98-107); Estimated GFR 127; Glucose 129 mg/dL (70-105); Magnesium 1.6 mg/dL (1.6-2.6); Potassium 3.6 mmol/L (3.5-5.1); Sodium 135 mmol/L (136-145)
[2023-05-24] MEDS: Magnesium 2 GM/50 ML(in water) 2 GM in Premix 1 BAG IVPB SCH (06:19)
[2023-05-24] MEDS: Acetaminophen 325 MG TAB PO PRN (06:21)
[2023-05-24] MEDS ORDERED: Insulin Glargine 30 UNITS/0.3 ML VIAL SC SCH (09:00)
[2023-05-24 12:14] VITALS: BP 105/67; TEMP 98.1
== END 2023-05-24 14:57 | disposition home or self-care (01) | DRG 638 ==
LOC: ERS 19:46 → CCU 21:54 → SURG A 05-23 10:22
PROVIDERS: ADMIT Student in an Organized Health Care Education/Training Program; ATTEND Family Medicine
DX: E11.10 Type 2 diabetes mellitus with ketoacidosis without coma (principal); E87.1 Hypo-osmolality and hyponatremia; F41.9 Anxiety disorder, unspecified; F32.A Depression, unspecified; F12.129 Cannabis abuse with intoxication, unspecified; D72.829 Elevated white blood cell count, unspecified; Z79.4 Long term (current) use of insulin
CPT/HCPCS: 36415; 36416; 80048; 80053; 81001; 82010; 82805; 83690; 83735; 84100; 84484; 85025; 93005; 96361; 96365; 96375; J1650; J1815; J2405; J3475; J3480; J7120; J7999

== ENCOUNTER 2023-08-03 06:16 | Inpatient (IN) | payer BC ==
[2023-08-03] MEDS ORDERED: Ondansetron PF 4 MG/2 ML Vial ONE (06:39)
[2023-08-03 06:43] LABS: Base Excess -24.2 mEq/L (-2.0 to +3.0); Chloride (VBG) 98 mmol/L (98-106); Hematocrit-VBG 49 % (36.0-47.0); Hemoglobin (Hb) 16.7 g/dL (11.7-15.5); Potassium (VBG) 5.33 mmol/L (3.70-5.30); Sodium 136 mmol/L (133-146)
[2023-08-03 06:49] LABS: Actual Bicarbonate (HCO3v) 6.5 mEq/L (22-28)
[2023-08-03 06:51] LABS: #Eosinphils Less than 0.03 10x3/uL (0.0-0.7); %Basophils 0.8 % (0.0-1.0); %Eosinophils 0.1 % (0.0-10.0); %Lymphocytes 8.4 % (21.0-51.0); %Monocytes 3.4 % (0.0-10.0); %Neutrophils 85.6 % (42.0-75.0); Hematocrit 49.6 % (36.0-47.0); Hemoglobin 15.8 g/dL (12.0-16.0); Mean Corpuscular HGB CONC 31.9 g/dL (32.0-36.0); Mean Corpuscular Hemoglobin 30.7 pg (27.0-31.0); Mean Corpuscular Volume 96.3 fL (78.0-98.0); Mean Platelet Volume 11.7 fL (7.4-10.4); Platelet Count 289 10x3/uL (130-400); RBC Distribution Width 12.4 % (11.5-14.5); Red Blood Cell (RBC) Count 5.15 mill/uL (4.20-5.40)
[2023-08-03 06:52] LABS: BHCG - Serum Negative (NEGATIVE); Pregs Control Background? CLEAR/WHITE (CLR/WHITE); Pregs Control Bar Appear? YES (CONTROL BAR)
[2023-08-03 06:59] LABS: Phosphorus 5.3 mg/dL (2.3-4.7)
[2023-08-03 07:01] LABS: Magnesium 1.8 mg/dL (1.6-2.6)
[2023-08-03 07:04] LABS: Critical Call Chemistry NUR.LB16@0704
[2023-08-03 07:05] LABS: Troponin I Less than 0.010 ng/mL (< 0.028)
[2023-08-03 07:52] LABS: Bacteria/HPF None Seen HPF (None Seen); Bilirubin Negative (Negative); Blood, Urine Negative (Negative); CAUTI Indications for Culture Alt mental st,lethar; Clarity Clear (Clear); Glucose, Urine (Dipstick) Greater than 1000 mg/dL (Negative); Ketone, Urine Greater than 150 mg/dL (Negative); Leukocyte Negative Leu/uL (Negative); Nitrite Negative (Negative); Protein, Urine (Dipstick) 30 mg/dL (Neg-Trace); RBC/HPF 0-3 HPF (0-3); Specific Gravity, Urine 1.026 (1.002-1.036); Squamous Epithelial 0-3 HPF (0-3); Urobilinogen Normal mg/dL (Less than 2); WBC/HPF 0-3 HPF (0-3)
[2023-08-03 07:54] LABS: Urine Culture Reflex No No
[2023-08-03 07:55] LABS: Anion Gap 30 mmol/L (10-20); Carbon Dioxide 9 mmol/L (22-29); Chloride 99 mmol/L (98-107); Critical Call Chemistry NUR.LB16@0704; Potassium 5.4 mmol/L (3.5-5.1); Sodium 133 mmol/L (136-145)
[2023-08-03 07:56] LABS: Albumin 4.9 g/dL (3.5-5.0); Alkaline Phosphatase 127 U/L (40-110); BUN (Urea Nitrogen) 13 mg/dL (7.0-18.7); Bilirubin, Total 0.4 mg/dL (0.2-1.2); Calc. Creatinine Clearance 0 mL/min (70-130); Calcium 10.1 mg/dL (7.6-10.4); Estimated GFR 58; Globulin 3.8 g/dL (2.4-3.5); Glucose 477 mg/dL (70-105); Protein, Total 8.7 g/dL (6.0-8.3)
[2023-08-03 07:57] LABS: ALT (SGPT) 13 U/L (8-55); AST (SGOT) 9 U/L (5-34)
[2023-08-03] MEDS ORDERED: INSULIN REGULAR IN 0.9 % NACL 100 UNITS/100 ML BAG ONE (08:08)
[2023-08-03] MEDS ORDERED: Sodium Chloride 0.9% 1,000 ML IV PRN ×4 (08:25)
[2023-08-03] MEDS ORDERED: Electrolyte Replacement Protocol 1 EACH IVPB SCH (08:25)
[2023-08-03] MEDS ORDERED: NS 0.9% w/ 20 MEQ KCL 1,000 ML IV PRN ×2 (08:25)
[2023-08-03] MEDS ORDERED: Dextrose 50% Abboject 50 ML SYRINGE SLOW IVP PRN ×2 (08:25→08:31)
[2023-08-03] MEDS ORDERED: Glucagon 1 MG/ML KIT IM PRN (08:31)
[2023-08-03] MEDS ORDERED: HumaLOG 300 UNITS/3 ML VIAL SC PRN (08:31)
[2023-08-03] MEDS ORDERED: Dextrose 5% in Water 1,000 ML IV PRN (08:31)
[2023-08-03 10:38] LABS: BUN (Urea Nitrogen) 15 mg/dL (7.0-18.7); Calc. Creatinine Clearance 0 mL/min (70-130); Calcium 9.4 mg/dL (7.8-10.44); Carbon Dioxide Less than 8 mmol/L (22-29); Chloride 105 mmol/L (98-107); Estimated GFR 72; Glucose 381 mg/dL (70-105); Potassium 5.7 mmol/L (3.5-5.1); Sodium 135 mmol/L (136-145)
[2023-08-03] MEDS ORDERED: Magnesium 2 GM/50 ML BAG (IN WATER) ONE (10:38)
[2023-08-03] MEDS ORDERED: Famotidine/PF 20 mg/2ml Vial ONE (10:38)
[2023-08-03] MEDS: Famotidine/PF 20 mg/2ml Vial SLOW IVP SCH (11:00)
[2023-08-03] MEDS: Sodium Chloride 0.9% 1,000 ML IV SCH (11:26)
[2023-08-03] MEDS: Magnesium 2 GM/50 ML(in water) 2 GM in Premix 1 BAG IVPB SCH (11:59)
[2023-08-03] MEDS: Sodium Bicarbonate 150 MEQ in Dextrose 5% in Water 1,000 ML IV SCH (12:00)
[2023-08-03] MEDS ORDERED: Metoclopramide HCl 10 MG (2 mL) VIAL ONE (13:54)
[2023-08-03] MEDS: Metoclopramide HCl 10 MG (2 mL) VIAL IVP SCH (13:59)
[2023-08-03] MEDS: Dextrose 5 %-0.45 % NaCl 1,000 ML IV PRN (15:58)
[2023-08-03] MEDS: FLU VACC QS2023-24(6MOS UP)/PF 60 MCG/0.5 ML SYRINGE IM ONE (15:58)
[2023-08-03 16:50] LABS: Anion Gap 21 mmol/L (10-20); BUN (Urea Nitrogen) 9 mg/dL (7.0-18.7); Calc. Creatinine Clearance 96 mL/min (70-130); Calcium 8.5 mg/dL (7.8-10.44); Carbon Dioxide 10 mmol/L (22-29); Chloride 107 mmol/L (98-107); Estimated GFR 82; Glucose 293 mg/dL (70-105); Potassium 4.5 mmol/L (3.5-5.1); Sodium 133 mmol/L (136-145)
[2023-08-03] MEDS: D5 1/2 NS w/20 mEq KCL 1,000 ML IV PRN (18:27)
[2023-08-03] MEDS: HUMULIN R 100 UNITS in Sodium Chloride 0.9% 100 ML IVPB SCH (18:27)
[2023-08-03 22:14] LABS: Anion Gap 10 mmol/L (10-20); BUN (Urea Nitrogen) 7 mg/dL (7.0-18.7); Calc. Creatinine Clearance 117 mL/min (70-130); Carbon Dioxide 19 mmol/L (22-29); Chloride 109 mmol/L (98-107); Estimated GFR 104; Glucose 235 mg/dL (70-105); Potassium 3.1 mmol/L (3.5-5.1); Sodium 135 mmol/L (136-145)
[2023-08-03] MEDS: Potassium Chloride 20 MEQ in Premix 1 BAG IVPB SCH (22:54)
[2023-08-04 04:15] LABS: Hemoglobin A1c 12.8 % (4.0-6.0)
[2023-08-04 04:17] LABS: #Basophils Less than 0.03 10x3/uL (0.0-0.2); %Basophils 0.1 % (0.0-1.0); %Eosinophils 0.3 % (0.0-10.0); %Lymphocytes 16.4 % (21.0-51.0); %Monocytes 11.6 % (0.0-10.0); %Neutrophils 71.3 % (42.0-75.0); Hematocrit 34.2 % (36.0-47.0); Mean Corpuscular HGB CONC 35.1 g/dL (32.0-36.0); Mean Corpuscular Hemoglobin 31.5 pg (27.0-31.0); Mean Corpuscular Volume 89.8 fL (78.0-98.0); Mean Platelet Volume 10.9 fL (7.4-10.4); Platelet Count 235 10x3/uL (130-400); RBC Distribution Width 12.5 % (11.5-14.5); Red Blood Cell (RBC) Count 3.81 mill/uL (4.20-5.40)
[2023-08-04 04:18] LABS: Anion Gap 15 mmol/L (10-20); BUN (Urea Nitrogen) 6 mg/dL (7.0-18.7); Calc. Creatinine Clearance 135 mL/min (70-130); Calcium 8.5 mg/dL (7.8-10.44); Carbon Dioxide 19 mmol/L (22-29); Chloride 107 mmol/L (98-107); Estimated GFR 122; Glucose 139 mg/dL (70-105); Magnesium 1.8 mg/dL (1.6-2.6); Potassium 3.6 mmol/L (3.5-5.1); Sodium 137 mmol/L (136-145)
[2023-08-04 04:21] LABS: Phosphorus 1.6 mg/dL (2.3-4.7)
[2023-08-04] MEDS ORDERED: HumaLOG 300 UNITS/3 ML VIAL SC PRN ×2 (05:17)
[2023-08-04] MEDS: Magnesium 2 GM/50 ML(in water) 2 GM in Premix 1 BAG IVPB SCH (05:29)
[2023-08-04] MEDS: Insulin Glargine 30 UNITS/0.3 ML VIAL SC SCH ×2 (05:30→20:37)
[2023-08-04 06:00] VITALS: BMI 26.2
[2023-08-04] MEDS: Potassium Phosphate 15 MMOL in Sodium Chloride 0.9% 250 ML 250 ML IVPB SCH (06:14)
[2023-08-04] MEDS: Fluticasone Propionate Nasal Spray 16 gm Bottle NASAL SCH (08:02)
[2023-08-04] MEDS: Sodium Chloride 0.9% 1,000 ML IV SCH ×2 (08:51→20:35)
[2023-08-04 11:05] LABS: Glucose 262 mg/dL (70-105)
[2023-08-04] MEDS: HumaLOG 300 UNITS/3 ML VIAL SC PRN (12:34)
[2023-08-04 18:31] LABS: Anion Gap 22 mmol/L (10-20); BUN (Urea Nitrogen) 5 mg/dL (7.0-18.7); Calc. Creatinine Clearance 127 mL/min (70-130); Calcium 8.4 mg/dL (7.8-10.44); Carbon Dioxide 13 mmol/L (22-29); Chloride 105 mmol/L (98-107); Estimated GFR 112; Glucose 310 mg/dL (70-105); Potassium 3.8 mmol/L (3.5-5.1); Sodium 136 mmol/L (136-145)
[2023-08-04] MEDS: Acetaminophen 325 MG TAB PO PRN (18:40)
[2023-08-04] MEDS: Ondansetron PF 4 MG/2 ML Vial IVP PRN (18:41)
[2023-08-04] MEDS ORDERED: Insulin Glargine 30 UNITS/0.3 ML VIAL SC SCH (21:00)
[2023-08-04 22:32] LABS: Anion Gap 17 mmol/L (10-20); BUN (Urea Nitrogen) 5 mg/dL (7.0-18.7); Calc. Creatinine Clearance 134 mL/min (70-130); Calcium 8.3 mg/dL (7.8-10.44); Carbon Dioxide 17 mmol/L (22-29); Chloride 106 mmol/L (98-107); Estimated GFR 119; Glucose 218 mg/dL (70-105); Sodium 136 mmol/L (136-145)
[2023-08-04] MEDS: Sodium Chloride 0.9% 500 ML IV SCH (23:10)
[2023-08-05] MEDS: Sodium Chloride 0.65% Nasal 44 ML BOT EA NARE PRN (00:37)
[2023-08-05 02:24] LABS: Glucose 188 mg/dL (70-105)
[2023-08-05 02:48] LABS: Calcium 8.5 mg/dL (7.8-10.44); Chloride 107 mmol/L (98-107); Potassium 3.7 mmol/L (3.5-5.1); Sodium 136 mmol/L (136-145)
[2023-08-05 02:49] LABS: Glucose 185 mg/dL (70-105)
[2023-08-05 02:50] LABS: Anion Gap 16 mmol/L (10-20); Carbon Dioxide 17 mmol/L (22-29)
[2023-08-05 02:52] LABS: Calc. Creatinine Clearance 131 mL/min (70-130); Estimated GFR 116
[2023-08-05 02:53] LABS: BUN (Urea Nitrogen) 5 mg/dL (7.0-18.7)
[2023-08-05 05:24] LABS: Glucose 183 mg/dL (70-105)
[2023-08-05] MEDS: HumaLOG 300 UNITS/3 ML VIAL SC PRN (09:12)
[2023-08-05] MEDS: Insulin Glargine 30 UNITS/0.3 ML VIAL SC SCH (09:18)
[2023-08-05 13:44] VITALS: BP 134/89; TEMP 98.4
== END 2023-08-05 13:45 | disposition home or self-care (01) | DRG 638 ==
LOC: ERS 06:16 → ERHOLD 08:27 → IMCU/EMU 14:53 → MSONC 08-04 12:53
PROVIDERS: ADMIT Family Medicine; ATTEND Family Medicine
DX: E11.10 Type 2 diabetes mellitus with ketoacidosis without coma (principal); N17.9 Acute kidney failure, unspecified; Z79.4 Long term (current) use of insulin; F41.9 Anxiety disorder, unspecified; F32.A Depression, unspecified; Z91.148 Patient's other noncompliance with medication regimen for other reason
CPT/HCPCS: 36415; 36416; 80048; 80053; 81001; 82010; 82805; 82947; 83036; 83735; 83930; 84100; 84484; 84703; 85025; 93005; 94760; 96360; 96361; 96365; 96366; 96375; J1815; J2405; J2765; J3475; J3480; J3490; J7030; J7042; J7050; J7070; S0028

== ENCOUNTER 2024-02-23 20:14 | Inpatient (IN) | payer BC ==
[2024-02-23] MEDS ORDERED: Ondansetron PF 4 MG/2 ML Vial ONE (21:12)
[2024-02-23] MEDS ORDERED: Metoclopramide HCl 10 MG (2 mL) VIAL ONE (21:12)
[2024-02-23 21:15] LABS: Analyzer IN Cardio ER; Base Excess -28.2 mEq/L (-2.0 to +3.0); Calcium, Ionized (venous) 1.36 mmol/L (1.16-1.32); Chloride (VBG) 99 mmol/L (98-106); Hematocrit-VBG 48 % (36.0-47.0); Hemoglobin (Hb) 16.2 g/dL (11.7-15.5); Potassium (VBG) 5.53 mmol/L (3.70-5.30); Sodium 138 mmol/L (133-146)
[2024-02-23 21:17] LABS: Hematocrit 47.7 % (36.0-47.0); Mean Corpuscular HGB CONC 31.4 g/dL (32.0-36.0); Mean Corpuscular Hemoglobin 30.7 pg (27.0-31.0); Mean Corpuscular Volume 97.5 fL (78.0-98.0); Mean Platelet Volume 10.8 fL (7.4-10.4); Platelet Count 329 10x3/uL (130-400); RBC Distribution Width 12.6 % (11.5-14.5); Red Blood Cell (RBC) Count 4.89 mill/uL (4.20-5.40)
[2024-02-23 21:20] LABS: Actual Bicarbonate (HCO3v) 4.3 mEq/L (22-28); pH (venous) 6.883 (7.32-7.43)
[2024-02-23 21:36] LABS: Band 8 % (5-11); Burr Cells SLIGHT = 2-5 cells HPF (0-1); Lymphocytes 9 % (21-51); Macrocytosis SLIGHT = 6-15 cells HPF (0-5); Monocytes 2 % (0-10); Neutrophil 81 % (42-75); Platelet Adequacy Comment Platelets Normal; Polychromasia SLIGHT = 2-3 cells HPF (0-2)
[2024-02-23 21:37] LABS: Phosphorus 7.1 mg/dL (2.3-4.7)
[2024-02-23 21:43] LABS: Troponin I Less than 0.010 ng/mL (< 0.028)
[2024-02-23 21:45] LABS: BHCG - Serum Negative (NEGATIVE); Pregs Control Background? CLEAR/WHITE (CLR/WHITE); Pregs Control Bar Appear? YES (CONTROL BAR)
[2024-02-23 21:47] LABS: ALT (SGPT) 16 U/L (8-55); AST (SGOT) 12 U/L (5-34); Albumin 4.7 g/dL (3.5-5.0); Alkaline Phosphatase 125 U/L (40-110); Anion Gap 33 mmol/L (10-20); BUN (Urea Nitrogen) 20 mg/dL (7.0-18.7); Bilirubin, Total 0.3 mg/dL (0.2-1.2); Calc. Creatinine Clearance 0 mL/min (70-130); Calcium 9.9 mg/dL (7.8-10.44); Carbon Dioxide Less than 8 mmol/L (22-29); Chloride 102 mmol/L (98-107); Estimated GFR 46; Globulin 3.3 g/dL (2.4-3.5); Glucose 670 mg/dL (70-105); Lipase 6 U/L (8-78); Magnesium 2.5 mg/dL (1.6-2.6); Potassium 5.7 mmol/L (3.5-5.1); Sodium 134 mmol/L (136-145)
[2024-02-23] MEDS ORDERED: Insulin Regular, Human 100 UNIT/ML 10 ML VIAL ONE ×2 (21:55→22:23)
[2024-02-23] MEDS ORDERED: INSULIN REGULAR IN 0.9 % NACL 100 ML ONE (21:55)
[2024-02-23 22:36] LABS: Bacteria/HPF None Seen HPF (None Seen); Bilirubin Negative (Negative); Blood, Urine Negative (Negative); CAUTI Indications for Culture Dysuria,urgency,freq; Clarity Clear (Clear); Glucose, Urine (Dipstick) Greater than 1000 mg/dL (Negative); Ketone, Urine 150 mg/dL (Negative); Leukocyte Negative Leu/uL (Negative); Nitrite Negative (Negative); Protein, Urine (Dipstick) 30 mg/dL (Neg-Trace); RBC/HPF 0-3 HPF (0-3); Specific Gravity, Urine 1.021 (1.002-1.036); Squamous Epithelial 0-3 HPF (0-3); Urobilinogen Normal mg/dL (Less than 2)
[2024-02-23 22:38] LABS: Urine Culture Reflex No No
[2024-02-23 23:35] LABS: Base Excess -29.8 mEq/L (-2.0 to +3.0); Calcium, Ionized (venous) 1.22 mmol/L (1.16-1.32); Chloride (VBG) 102 mmol/L (98-106); Hematocrit-VBG 45 % (36.0-47.0); Hemoglobin (Hb) 15.2 g/dL (11.7-15.5)
[2024-02-23 23:37] LABS: Actual Bicarbonate (HCO3v) 3.5 mEq/L (22-28); Potassium (VBG) 6.22 mmol/L (3.70-5.30)
[2024-02-23] MEDS ORDERED: INSULIN REGULAR IN 0.9 % NACL 100 ML IVPB SCH (23:45)
[2024-02-23] MEDS ORDERED: Electrolyte Replacement Protocol 1 EACH IVPB PRN (23:55)
[2024-02-23] MEDS ORDERED: Ondansetron PF 4 MG/2 ML Vial IVP PRN (23:55)
[2024-02-23] MEDS ORDERED: Dextrose 5 %-0.45 % NaCl 1,000 ML IV PRN (23:55)
[2024-02-23] MEDS ORDERED: Sodium Chloride 0.9% 1,000 ML IV PRN ×4 (23:55)
[2024-02-23] MEDS ORDERED: NS 0.9% w/ 20 MEQ KCL 1,000 ML IV PRN (23:55)
[2024-02-24] MEDS: Sodium Chloride 0.9% 1,000 ML IV SCH (01:00)
[2024-02-24] MEDS: Sodium Bicarb 50 MEQ/50 ML Abboject 8.4% SYRINGE IVP SCH (01:03)
[2024-02-24] MEDS: Sodium Bicarb 50 mEq/50 ML VIAL IVP SCH ×2 (01:04→03:26)
[2024-02-24 01:21] VITALS: BMI 22.8
[2024-02-24 02:11] LABS: BUN (Urea Nitrogen) 16 mg/dL (7.0-18.7); Calc. Creatinine Clearance 89 mL/min (70-130); Carbon Dioxide Less than 8 mmol/L (22-29); Chloride 109 mmol/L (98-107); Estimated GFR 86; Glucose 344 mg/dL (70-105); Potassium 4.5 mmol/L (3.5-5.1); Sodium 137 mmol/L (136-145)
[2024-02-24 02:53] LABS: Base Excess -23.5 mEq/L (-2.0 to +3.0); Calcium, Ionized (venous) 1.15 mmol/L (1.16-1.32); Chloride (VBG) 110 mmol/L (98-106); Hematocrit-VBG 40 % (36.0-47.0); Hemoglobin (Hb) 13.6 g/dL (11.7-15.5); Potassium (VBG) 4.41 mmol/L (3.70-5.30)
[2024-02-24 02:55] LABS: Actual Bicarbonate (HCO3v) 5.3 mEq/L (22-28)
[2024-02-24] MEDS: NS 0.9% w/ 20 MEQ KCL 1,000 ML IV PRN (03:27)
[2024-02-24 04:10] LABS: Hematocrit 40.5 % (36.0-47.0); Hemoglobin 12.7 g/dL (12.0-16.0); Mean Corpuscular HGB CONC 31.4 g/dL (32.0-36.0); Mean Corpuscular Hemoglobin 30.4 pg (27.0-31.0); Mean Corpuscular Volume 96.9 fL (78.0-98.0); Platelet Count 222 10x3/uL (130-400); RBC Distribution Width 12.3 % (11.5-14.5); Red Blood Cell (RBC) Count 4.18 mill/uL (4.20-5.40)
[2024-02-24 04:37] LABS: BUN (Urea Nitrogen) 13 mg/dL (7.0-18.7); Calc. Creatinine Clearance 99 mL/min (70-130); Calcium 7.5 mg/dL (7.8-10.44); Chloride 113 mmol/L (98-107); Estimated GFR 98; Glucose 239 mg/dL (70-105); Potassium 4.3 mmol/L (3.5-5.1); Sodium 137 mmol/L (136-145)
[2024-02-24 04:44] LABS: Carbon Dioxide Less than 8 mmol/L (22-29)
[2024-02-24 04:47] LABS: Magnesium 1.7 mg/dL (1.6-2.6)
[2024-02-24 05:09] LABS: Anisocytosis SLIGHT = 6-15 cells HPF (0-5); Band 11 % (5-11); Lymphocytes 12 % (21-51); Macrocytosis SLIGHT = 6-15 cells HPF (0-5); Monocytes 3 % (0-10); Myelocyte 1 % (0-0); Neutrophil 73 % (42-75); Platelet Adequacy Comment Platelets Decreased; Polychromasia SLIGHT = 2-3 cells HPF (0-2)
[2024-02-24 05:42] LABS: Anion Gap 21 mmol/L (10-20); BUN (Urea Nitrogen) 11 mg/dL (7.0-18.7); Calc. Creatinine Clearance 117 mL/min (70-130); Calcium 7.2 mg/dL (7.8-10.44); Carbon Dioxide 8 mmol/L (22-29); Chloride 117 mmol/L (98-107); Estimated GFR 112; Glucose 168 mg/dL (70-105); Potassium 3.8 mmol/L (3.5-5.1); Sodium 142 mmol/L (136-145)
[2024-02-24] MEDS: Potassium Phosphate 15 MMOL in Sodium Chloride 0.9% 100 ML IVPB SCH (07:37)
[2024-02-24] MEDS: Dextrose 50% Abboject 50 ML SYRINGE SLOW IVP PRN (07:40)
[2024-02-24] MEDS: D5 1/2 NS w/20 mEq KCL 1,000 ML IV PRN (07:46)
[2024-02-24] MEDS ORDERED: FLU (Fluarix Triv) TS24-25(6MOS UP)/PF 45 MCG/0.5 ML Syringe IM ONE (09:00)
[2024-02-24] MEDS: Magnesium 2 GM/50 ML(in water) 2 GM in Premix 1 BAG IVPB SCH (09:57)
[2024-02-24] MEDS: Enoxaparin 40 MG (0.4 mL) SYRINGE SC SCH (09:58)
[2024-02-24 09:59] LABS: Anion Gap 16 mmol/L (10-20); BUN (Urea Nitrogen) 9 mg/dL (7.0-18.7); Calc. Creatinine Clearance 121 mL/min (70-130); Calcium 7.2 mg/dL (7.8-10.44); Carbon Dioxide 10 mmol/L (22-29); Chloride 117 mmol/L (98-107); Estimated GFR 116; Glucose 229 mg/dL (70-105); Potassium 3.9 mmol/L (3.5-5.1); Sodium 139 mmol/L (136-145)
[2024-02-24] MEDS: Acetaminophen 325 MG TAB PO PRN (12:24)
[2024-02-24 13:18] LABS: Anion Gap 9 mmol/L (10-20); BUN (Urea Nitrogen) 8 mg/dL (7.0-18.7); Calc. Creatinine Clearance 122 mL/min (70-130); Calcium 7.6 mg/dL (7.8-10.44); Carbon Dioxide 15 mmol/L (22-29); Chloride 115 mmol/L (98-107); Estimated GFR 117; Glucose 196 mg/dL (70-105); Potassium 3.4 mmol/L (3.5-5.1); Sodium 136 mmol/L (136-145)
[2024-02-24] MEDS ORDERED: Glucagon 1 MG/ML KIT IM PRN (13:45)
[2024-02-24] MEDS ORDERED: Insulin Lispro 100 UNIT/ML 10 ML VIAL SC PRN ×2 (13:45)
[2024-02-24] MEDS ORDERED: Dextrose 50% Abboject 50 ML SYRINGE SLOW IVP PRN (13:45)
[2024-02-24] MEDS ORDERED: Dextrose 5% in Water 1,000 ML IV PRN (13:45)
[2024-02-24] MEDS: Lactated Ringer's 1,000 ML IV SCH (14:20)
[2024-02-24] MEDS: Insulin Glargine 30 UNITS/0.3 ML VIAL SC SCH ×2 (14:21→20:49)
[2024-02-24] MEDS: Potassium Chloride 20 MEQ TAB PO SCH (14:21)
[2024-02-24] MEDS: Sodium Bicarbonate Tab 325 MG TAB PO SCH (14:21)
[2024-02-24 14:49] LABS: Magnesium 2.2 mg/dL (1.6-2.6); Phosphorus 1.4 mg/dL (2.3-4.7)
[2024-02-24] MEDS ORDERED: Sodium Bicarbonate Tab 325 MG TAB PO SCH (15:00)
[2024-02-24] MEDS ORDERED: Potassium Phosphate 15 MMOL in Sodium Chloride 0.9% 100 ML IVPB SCH ×2 (17:15→18:00)
[2024-02-24 17:27] LABS: Anion Gap 11 mmol/L (10-20); BUN (Urea Nitrogen) 8 mg/dL (7.0-18.7); Calc. Creatinine Clearance 138 mL/min (70-130); Calcium 7.6 mg/dL (7.8-10.44); Carbon Dioxide 17 mmol/L (22-29); Chloride 113 mmol/L (98-107); Estimated GFR 124; Glucose 97 mg/dL (70-105); Magnesium 2.1 mg/dL (1.6-2.6); Potassium 3.3 mmol/L (3.5-5.1); Sodium 138 mmol/L (136-145)
[2024-02-24] MEDS: Potassium Phosphate 30 MMOL in Sodium Chloride 0.9% 250 ML 250 ML IVPB SCH (18:22)
[2024-02-25 03:58] LABS: #Basophils 0.03 10x3/uL (0.0-0.2); %Basophils 0.2 % (0.0-1.0); %Eosinophils 0.5 % (0.0-10.0); %Lymphocytes 21.1 % (21.0-51.0); %Monocytes 6.5 % (0.0-10.0); %Neutrophils 71.3 % (42.0-75.0); Hematocrit 32.3 % (36.0-47.0); Hemoglobin 10.8 g/dL (12.0-16.0); Mean Corpuscular HGB CONC 33.4 g/dL (32.0-36.0); Mean Corpuscular Hemoglobin 30.3 pg (27.0-31.0); Mean Corpuscular Volume 90.5 fL (78.0-98.0); Mean Platelet Volume 10.2 fL (7.4-10.4); Platelet Count 194 10x3/uL (130-400); RBC Distribution Width 12.7 % (11.5-14.5); Red Blood Cell (RBC) Count 3.57 mill/uL (4.20-5.40)
[2024-02-25 04:06] LABS: Hemoglobin A1c Greater than 14.0 % (4.0-6.0)
[2024-02-25 04:36] LABS: ALT (SGPT) 10 U/L (8-55); AST (SGOT) 11 U/L (5-34); Albumin 2.7 g/dL (3.5-5.0); Alkaline Phosphatase 61 U/L (40-110); Anion Gap 9 mmol/L (10-20); BUN (Urea Nitrogen) 7 mg/dL (7.0-18.7); Bilirubin, Total 0.3 mg/dL (0.2-1.2); Calc. Creatinine Clearance 157 mL/min (70-130); Calcium 7.8 mg/dL (7.8-10.44); Carbon Dioxide 18 mmol/L (22-29); Chloride 113 mmol/L (98-107); Estimated GFR 128; Globulin 2.1 g/dL (2.4-3.5); Glucose 63 mg/dL (70-105); Magnesium 1.8 mg/dL (1.6-2.6); Protein, Total 4.8 g/dL (6.0-8.3); Sodium 137 mmol/L (136-145)
[2024-02-25 04:37] LABS: Phosphorus 2.3 mg/dL (2.3-4.7)
[2024-02-25] MEDS: Magnesium 2 GM/50 ML(in water) 2 GM in Premix 1 BAG IVPB SCH (09:37)
[2024-02-25] MEDS: Potassium Chloride 20 MEQ TAB PO SCH (09:37)
[2024-02-25 14:49] VITALS: BP 132/82; TEMP 98.3
== END 2024-02-25 15:33 | disposition home or self-care (01) | DRG 638 ==
LOC: ERS 20:14 → CCU 02-24 00:05 → IMCU/EMU 02-24 22:25 → T4-A 02-25 11:00
PROVIDERS: ADMIT Internal Medicine; ATTEND Internal Medicine
DX: E10.10 Type 1 diabetes mellitus with ketoacidosis without coma (principal); N17.9 Acute kidney failure, unspecified; E87.5 Hyperkalemia; E10.65 Type 1 diabetes mellitus with hyperglycemia; D72.829 Elevated white blood cell count, unspecified; F41.9 Anxiety disorder, unspecified; E86.1 Hypovolemia; K52.9 Noninfective gastroenteritis and colitis, unspecified; Z79.899 Other long term (current) drug therapy; Z79.4 Long term (current) use of insulin; Z91.148 Patient's other noncompliance with medication regimen for other reason
CPT/HCPCS: 36415; 36416; 80048; 80053; 81001; 82010; 82805; 83036; 83690; 83735; 84100; 84484; 84703; 85025; 87086; 93005; 96365; 96366; 96367; 96375; J1650; J1815; J2405; J2765; J3475; J3480; J7030; J7050; J7120; J7999

== ENCOUNTER 2024-04-06 08:08 | Inpatient (IN) | payer BC ==
[2024-04-06] MEDS ORDERED: Ondansetron PF 4 MG/2 ML Vial ONE (08:27)
[2024-04-06] MEDS ORDERED: INSULIN REGULAR IN 0.9 % NACL 100 ML ONE (08:40)
[2024-04-06] MEDS ORDERED: Insulin Regular, Human 100 UNIT/ML 10 ML VIAL ONE (08:40)
[2024-04-06] MEDS ORDERED: Sodium Bicarb 50 MEQ/50 ML Abboject 8.4% SYRINGE ONE ×2 (08:43→10:26)
[2024-04-06 09:03] LABS: Troponin I Less than 0.010 ng/mL (< 0.028)
[2024-04-06 09:28] LABS: BHCG - Serum Negative (NEGATIVE); Pregs Control Background? CLEAR/WHITE (CLR/WHITE); Pregs Control Bar Appear? YES (CONTROL BAR)
[2024-04-06 10:06] LABS: Phosphorus 7.8 mg/dL (2.3-4.7)
[2024-04-06 10:15] LABS: ALT (SGPT) 11 U/L (8-55); AST (SGOT) 12 U/L (5-34); Albumin 4.5 g/dL (3.5-5.0); Alkaline Phosphatase 102 U/L (40-110); BUN (Urea Nitrogen) 19 mg/dL (7.0-18.7); Bilirubin, Total 0.2 mg/dL (0.2-1.2); Calc. Creatinine Clearance 0 mL/min (70-130); Calcium 9.7 mg/dL (7.8-10.44); Carbon Dioxide Less than 8 mmol/L (22-29); Chloride 96 mmol/L (98-107); Estimated GFR 42; Globulin 3.3 g/dL (2.4-3.5); Glucose 680 mg/dL (70-105); Lipase 8 U/L (8-78); Magnesium 2.2 mg/dL (1.6-2.6); Potassium 5.5 mmol/L (3.5-5.1); Protein, Total 7.8 g/dL (6.0-8.3); Sodium 131 mmol/L (136-145)
[2024-04-06 10:38] LABS: Hematocrit 48.4 % (36.0-47.0); Hemoglobin 14.7 g/dL (12.0-16.0); Mean Corpuscular HGB CONC 30.4 g/dL (32.0-36.0); Mean Corpuscular Hemoglobin 30.6 pg (27.0-31.0); Mean Corpuscular Volume 100.8 fL (78.0-98.0); Mean Platelet Volume 11.2 fL (7.4-10.4); Platelet Count 329 10x3/uL (130-400); RBC Distribution Width 12.9 % (11.5-14.5)
[2024-04-06 11:05] LABS: Analyzer IN Cardio ER; Calcium, Ionized (venous) 1.36 mmol/L (1.16-1.32); Chloride (VBG) 96 mmol/L (98-106); Hematocrit-VBG 46 % (36.0-47.0); Hemoglobin (Hb) 15.5 g/dL (11.7-15.5); Potassium (VBG) 5.22 mmol/L (3.70-5.30); Sodium 137 mmol/L (133-146)
[2024-04-06 11:07] LABS: Actual Bicarbonate (HCO3v) 3.5 mEq/L (22-28); Base Excess -30.9 mEq/L (-2.0 to +3.0); pH (venous) 6.794 (7.32-7.43)
[2024-04-06 11:36] LABS: Anisocytosis MODERATE=16-30 cells HPF (0-5); Band 6 % (5-11); Burr Cells SLIGHT = 2-5 cells HPF (0-1); Eosinophils 1 % (0-10); Lymphocytes 10 % (21-51); Macrocytosis SLIGHT = 6-15 cells HPF (0-5); Metamyelocyte 1 % (0-0); Monocytes 5 % (0-10); Myelocyte 1 % (0-0); Neutrophil 76 % (42-75); Ovalocytes SLIGHT = 2-5 cells HPF (0-1); Platelet Adequacy Comment Platelets Normal; Poikilocytosis SLIGHT = 6-15 cells HPF (0-5); Polychromasia SLIGHT = 2-3 cells HPF (0-2); Reactive Lymphocytes 1 % (0-10)
[2024-04-06] MEDS ORDERED: Electrolyte Replacement Protocol 1 EACH IVPB SCH (12:12)
[2024-04-06] MEDS ORDERED: NS 0.9% w/ 20 MEQ KCL 1,000 ML IV PRN ×2 (12:12)
[2024-04-06] MEDS ORDERED: Dextrose 5 %-0.45 % NaCl 1,000 ML IV PRN (12:12)
[2024-04-06] MEDS ORDERED: Dextrose 50% Abboject 50 ML SYRINGE SLOW IVP PRN (12:12)
[2024-04-06] MEDS ORDERED: Sodium Chloride 0.9% 1,000 ML IV PRN ×4 (12:12)
[2024-04-06 13:01] LABS: Bilirubin Negative (Negative); Blood, Urine Trace (Negative); CAUTI Indications for Culture < 2yrs of age; Clarity Clear (Clear); Glucose, Urine (Dipstick) Greater than 1000 mg/dL (Negative); Ketone, Urine Greater than 150 mg/dL (Negative); Leukocyte Negative Leu/uL (Negative); Mucous/LPF Rare LPF (<2+); Nitrite Negative (Negative); Protein, Urine (Dipstick) 30 mg/dL (Neg-Trace); RBC/HPF 0-3 HPF (0-3); Specific Gravity, Urine 1.015 (1.002-1.036); Squamous Epithelial 0-3 HPF (0-3); Urobilinogen Normal mg/dL (Less than 2); WBC/HPF 0-3 HPF (0-3)
[2024-04-06 13:05] LABS: Bacteria/HPF 1+ HPF (None Seen)
[2024-04-06 13:07] LABS: Urine Culture Reflex Yes Yes
[2024-04-06 13:35] VITALS: BMI 25.8
[2024-04-06 14:00] LABS: BUN (Urea Nitrogen) 17 mg/dL (7.0-18.7); Calc. Creatinine Clearance 80 mL/min (70-130); Calcium 8.4 mg/dL (7.8-10.44); Chloride 106 mmol/L (98-107); Estimated GFR 66; Glucose 355 mg/dL (70-105); Potassium 4.4 mmol/L (3.5-5.1); Sodium 135 mmol/L (136-145)
[2024-04-06 14:01] LABS: Carbon Dioxide Less than 8 mmol/L (22-29)
[2024-04-06] MEDS: D5 1/2 NS w/20 mEq KCL 1,000 ML IV PRN (14:04)
[2024-04-06] MEDS: Sodium Chloride 0.9% 1,000 ML IV SCH (15:41)
[2024-04-06 16:50] LABS: Influenza A by NAA Not Detected (NotDetected); Influenza B by NAA Not Detected (NotDetected); RSV by NAA Not Detected (NotDetected); SARS-CoV-2 NAA Rapid Test Not Detected (NotDetected)
[2024-04-06 17:01] LABS: Anion Gap 21 mmol/L (10-20); BUN (Urea Nitrogen) 13 mg/dL (7.0-18.7); Calc. Creatinine Clearance 100 mL/min (70-130); Calcium 8.1 mg/dL (7.8-10.44); Carbon Dioxide Less than 8 mmol/L (22-29); Chloride 111 mmol/L (98-107); Estimated GFR 85; Glucose 203 mg/dL (70-105); Potassium 4.2 mmol/L (3.5-5.1); Sodium 135 mmol/L (136-145)
[2024-04-06] MEDS: Piperacillin/Tazobactam 3.375 GM in Sodium Chloride 0.9% 100 ML IVPB SCH ×2 (19:54→23:48)
[2024-04-06] MEDS: Famotidine/PF 20 mg/2ml Vial SLOW IVP SCH (19:59)
[2024-04-06] MEDS: INSULIN REGULAR IN 0.9 % NACL 100 ML IVPB SCH (20:03)
[2024-04-06 20:47] LABS: Anion Gap 12 mmol/L (10-20); BUN (Urea Nitrogen) 10 mg/dL (7.0-18.7); Calc. Creatinine Clearance 119 mL/min (70-130); Calcium 7.7 mg/dL (7.8-10.44); Carbon Dioxide 12 mmol/L (22-29); Chloride 114 mmol/L (98-107); Estimated GFR 105; Glucose 242 mg/dL (70-105); Potassium 3.8 mmol/L (3.5-5.1); Sodium 134 mmol/L (136-145)
[2024-04-07 04:25] LABS: Anion Gap 10 mmol/L (10-20); BUN (Urea Nitrogen) 7 mg/dL (7.0-18.7); Calc. Creatinine Clearance 124 mL/min (70-130); Calcium 8.2 mg/dL (7.8-10.44); Carbon Dioxide 15 mmol/L (22-29); Chloride 115 mmol/L (98-107); Estimated GFR 110; Glucose 137 mg/dL (70-105); Potassium 3.3 mmol/L (3.5-5.1); Sodium 137 mmol/L (136-145)
[2024-04-07] MEDS ORDERED: Dextrose 5% in Water 1,000 ML IV PRN (06:29)
[2024-04-07] MEDS ORDERED: Glucagon 1 MG/ML KIT IM PRN (06:29)
[2024-04-07] MEDS ORDERED: Dextrose 50% Abboject 50 ML SYRINGE SLOW IVP PRN (06:29)
[2024-04-07] MEDS ORDERED: Insulin Lispro 100 UNIT/ML 10 ML VIAL SC PRN (06:29)
[2024-04-07] MEDS: Insulin Glargine 30 UNITS/0.3 ML VIAL SC SCH ×2 (06:44→20:34)
[2024-04-07] MEDS: Lactated Ringer's 1,000 ML IV SCH (06:45)
[2024-04-07] MEDS: Piperacillin/Tazobactam 3.375 GM in Sodium Chloride 0.9% 100 ML IVPB SCH (07:03)
[2024-04-07] MEDS: Potassium Bicarbonate/Cit Ac 20 MEQ TAB PO SCH (08:15)
[2024-04-07] MEDS: Insulin Lispro 100 UNIT/ML 10 ML VIAL SC SCH (13:24)
[2024-04-07] MEDS: Sodium Chloride 0.9% 100 ML ONE ×2 (15:07→15:26)
[2024-04-07] MEDS: Sodium Bicarbonate Tab 325 MG TAB ONE (15:07)
[2024-04-07] MEDS: Sodium Bicarbonate Tab 325 MG TAB PO SCH (15:26)
[2024-04-08 07:45] VITALS: TEMP 98.3
[2024-04-08 08:55] LABS: #Basophils 0.03 10x3/uL (0.0-0.2); %Basophils 0.4 % (0.0-1.0); %Eosinophils 0.9 % (0.0-10.0); %Lymphocytes 31.9 % (21.0-51.0); %Monocytes 7.9 % (0.0-10.0); %Neutrophils 58.6 % (42.0-75.0); Hematocrit 31.3 % (36.0-47.0); Hemoglobin 10.7 g/dL (12.0-16.0); Mean Corpuscular HGB CONC 34.2 g/dL (32.0-36.0); Mean Corpuscular Hemoglobin 30.8 pg (27.0-31.0); Mean Corpuscular Volume 90.2 fL (78.0-98.0); Mean Platelet Volume 10.6 fL (7.4-10.4); Platelet Count 167 10x3/uL (130-400); RBC Distribution Width 13.6 % (11.5-14.5); Red Blood Cell (RBC) Count 3.47 mill/uL (4.20-5.40)
[2024-04-08 09:03] LABS: Hemoglobin A1c 12.6 % (4.0-6.0)
[2024-04-08 09:15] LABS: Anion Gap 10 mmol/L (10-20); BUN (Urea Nitrogen) 6 mg/dL (7.0-18.7); Calc. Creatinine Clearance 167 mL/min (70-130); Calcium 8.3 mg/dL (7.8-10.44); Carbon Dioxide 23 mmol/L (22-29); Chloride 108 mmol/L (98-107); Estimated GFR 129; Glucose 111 mg/dL (70-105); Potassium 2.8 mmol/L (3.5-5.1); Sodium 138 mmol/L (136-145)
[2024-04-08 11:04] VITALS: BP 122/78
== END 2024-04-08 13:04 | disposition home or self-care (01) | DRG 638 ==
LOC: ER/OP 08:08 → CCU 12:55 → SURG A 04-07 11:58
PROVIDERS: ADMIT Family Medicine; ATTEND Family Medicine
DX: E10.10 Type 1 diabetes mellitus with ketoacidosis without coma (principal); N17.9 Acute kidney failure, unspecified; F41.9 Anxiety disorder, unspecified; F32.A Depression, unspecified; Z79.4 Long term (current) use of insulin; Z79.899 Other long term (current) drug therapy; E10.65 Type 1 diabetes mellitus with hyperglycemia; E87.6 Hypokalemia; D72.829 Elevated white blood cell count, unspecified
CPT/HCPCS: 0241U; 36415; 36416; 71045; 80048; 80053; 81001; 82010; 82805; 83036; 83690; 83735; 84100; 84484; 84703; 85025; 87040; 87086; 93005; J1815; J2405; J2543; J3480; J3490; J7030; J7120

== ENCOUNTER 2024-06-06 20:18 | Inpatient (IN) | payer BC, SELFPAY ==
[2024-06-06] MEDS ORDERED: Ondansetron PF 4 MG/2 ML Vial ONE (21:40)
[2024-06-06 21:51] LABS: #Basophils 0.06 10x3/uL (0.0-0.2); #Eosinophils Less than 0.03 10x3/uL (0.0-0.7); %Basophils 0.4 % (0.0-1.0); %Eosinophils 0.1 % (0.0-10.0); %Lymphocytes 8.2 % (21.0-51.0); %Monocytes 2.9 % (0.0-10.0); %Neutrophils 87.5 % (42.0-75.0); Hematocrit 42.5 % (36.0-47.0); Hemoglobin 13.6 g/dL (12.0-16.0); Mean Corpuscular Hemoglobin 30.4 pg (27.0-31.0); Mean Corpuscular Volume 95.1 fL (78.0-98.0); Mean Platelet Volume 10.8 fL (7.4-10.4); Platelet Count 260 10x3/uL (130-400); RBC Distribution Width 12.6 % (11.5-14.5); Red Blood Cell (RBC) Count 4.47 mill/uL (4.20-5.40)
[2024-06-06 21:56] LABS: Base Excess -18.4 mEq/L (-2.0 to +3.0); Calcium, Ionized (venous) 1.17 mmol/L (1.16-1.32); Chloride (VBG) 98 mmol/L (98-106); Hematocrit-VBG 43 % (36.0-47.0); Hemoglobin (Hb) 14.7 g/dL (11.7-15.5); Potassium (VBG) 4.82 mmol/L (3.70-5.30); Sodium 135 mmol/L (133-146)
[2024-06-06 21:57] LABS: pH (venous) 7.188 (7.32-7.43)
[2024-06-06 21:58] LABS: Actual Bicarbonate (HCO3v) 7.8 mEq/L (22-28)
[2024-06-06 22:03] LABS: BHCG - Serum Negative (NEGATIVE); Pregs Control Background? CLEAR/WHITE (CLR/WHITE); Pregs Control Bar Appear? YES (CONTROL BAR)
[2024-06-06 22:08] LABS: Phosphorus 5.7 mg/dL (2.5-4.5)
[2024-06-06 22:11] LABS: Troponin I Less than 0.010 ng/mL (< 0.028)
[2024-06-06 22:13] LABS: ALT (SGPT) 11 U/L (Less than 34); AST (SGOT) 13 U/L (11-34); Albumin 4.2 g/dL (3.1-4.5); Alkaline Phosphatase 85 U/L (40-110); Anion Gap 35 mmol/L (10-20); BUN (Urea Nitrogen) 18 mg/dL (7.0-18.7); Bilirubin, Total 0.8 mg/dL (0.3-1.2); Calc. Creatinine Clearance 0 mL/min (70-130); Carbon Dioxide Less than 8 mmol/L (22-29); Chloride 98 mmol/L (98-107); Estimated GFR 105; Globulin 3.6 g/dL (2.4-3.5); Glucose 516 mg/dL (70-105); Lipase 7 U/L (8-78); Magnesium 1.7 mg/dL (1.6-2.6); Protein, Total 7.8 g/dL (6.0-8.3); Sodium 133 mmol/L (136-145)
[2024-06-06] MEDS ORDERED: INSULIN REGULAR IN 0.9 % NACL 100 ML ONE (23:01)
[2024-06-06] MEDS ORDERED: Sodium Chloride 0.9% 1,000 ML IV PRN ×4 (23:14)
[2024-06-06] MEDS ORDERED: NS 0.9% w/ 20 MEQ KCL 1,000 ML IV PRN ×2 (23:14)
[2024-06-06] MEDS ORDERED: Electrolyte Replacement Protocol 1 EACH IVPB PRN (23:14)
[2024-06-06] MEDS ORDERED: Dextrose 5 %-0.45 % NaCl 1,000 ML IV PRN (23:14)
[2024-06-06] MEDS ORDERED: D5 1/2 NS w/20 mEq KCL 1,000 ML IV PRN (23:14)
[2024-06-06] MEDS ORDERED: INSULIN REGULAR IN 0.9 % NACL 100 ML IVPB SCH (23:15)
[2024-06-06] MEDS ORDERED: Acetaminophen 325 MG TAB PO PRN (23:16)
[2024-06-06] MEDS ORDERED: Ondansetron ODT 4 MG TAB PO PRN (23:16)
[2024-06-06 23:42] LABS: Bacteria/HPF None Seen HPF (None Seen); Bilirubin Negative (Negative); Blood, Urine 3+ (Negative); CAUTI Indications for Culture Pelvic or flank pain; Clarity Clear (Clear); Glucose, Urine (Dipstick) Greater than 1000 mg/dL (Negative); Ketone, Urine Greater than 150 mg/dL (Negative); Leukocyte Negative Leu/uL (Negative); Nitrite Negative (Negative); Protein, Urine (Dipstick) 20 mg/dL (Neg-Trace); RBC/HPF 21-50 HPF (0-3); Specific Gravity, Urine 1.019 (1.002-1.036); Squamous Epithelial 0-3 HPF (0-3); Urobilinogen Normal mg/dL (Less than 2); WBC/HPF 0-3 HPF (0-3)
[2024-06-06 23:44] LABS: Urine Culture Reflex No No
[2024-06-07 00:31] VITALS: BMI 22.4
[2024-06-07 01:06] LABS: Phosphorus 5.2 mg/dL (2.5-4.5)
[2024-06-07 01:10] LABS: Lactic Acid 4.37 mmol/L (0.50-2.20)
[2024-06-07 01:11] LABS: Anion Gap 32 mmol/L (10-20); BUN (Urea Nitrogen) 22 mg/dL (7.0-18.7); Calc. Creatinine Clearance 104 mL/min (70-130); Calcium 9.1 mg/dL (7.8-10.44); Carbon Dioxide Less than 8 mmol/L (22-29); Chloride 104 mmol/L (98-107); Estimated GFR 107; Glucose 467 mg/dL (70-105); Magnesium 1.7 mg/dL (1.6-2.6); Potassium 4.5 mmol/L (3.5-5.1); Sodium 137 mmol/L (136-145)
[2024-06-07] MEDS: Magnesium 2 GM/50 ML(in water) 2 GM in Premix 1 BAG IVPB SCH (03:01)
[2024-06-07] MEDS: Sodium Bicarbonate 150 MEQ in Sterile Water 1,000 ML IV SCH (03:02)
[2024-06-07] MEDS: traMADol HCl 50 MG TAB PO PRN (03:18)
[2024-06-07 03:30] LABS: #Basophils 0.05 10x3/uL (0.0-0.2); #Eosinophils Less than 0.03 10x3/uL (0.0-0.7); %Basophils 0.2 % (0.0-1.0); %Lymphocytes 8.9 % (21.0-51.0); %Monocytes 4.8 % (0.0-10.0); %Neutrophils 85.4 % (42.0-75.0); Hematocrit 36.1 % (36.0-47.0); Hemoglobin 11.9 g/dL (12.0-16.0); Mean Corpuscular Hemoglobin 30.4 pg (27.0-31.0); Mean Corpuscular Volume 92.1 fL (78.0-98.0); Mean Platelet Volume 10.4 fL (7.4-10.4); Platelet Count 231 10x3/uL (130-400); RBC Distribution Width 12.6 % (11.5-14.5); Red Blood Cell (RBC) Count 3.92 mill/uL (4.20-5.40)
[2024-06-07 04:01] LABS: Anion Gap 20 mmol/L (10-20); BUN (Urea Nitrogen) 18 mg/dL (7.0-18.7); Calc. Creatinine Clearance 131 mL/min (70-130); Calcium 8.5 mg/dL (7.8-10.44); Carbon Dioxide 10 mmol/L (22-29); Chloride 111 mmol/L (98-107); Estimated GFR 125; Glucose 248 mg/dL (70-105); Sodium 137 mmol/L (136-145)
[2024-06-07 04:04] LABS: ALT (SGPT) 8 U/L (Less than 34); AST (SGOT) 11 U/L (11-34); Albumin 3.5 g/dL (3.1-4.5); Alkaline Phosphatase 64 U/L (40-110); Anion Gap 21 mmol/L (10-20); BUN (Urea Nitrogen) 18 mg/dL (7.0-18.7); Bilirubin, Total 0.3 mg/dL (0.3-1.2); Calc. Creatinine Clearance 129 mL/min (70-130); Calcium 8.5 mg/dL (7.8-10.44); Carbon Dioxide 10 mmol/L (22-29); Chloride 111 mmol/L (98-107); Estimated GFR 125; Globulin 2.7 g/dL (2.4-3.5); Glucose 251 mg/dL (70-105); Protein, Total 6.2 g/dL (6.0-8.3); Sodium 138 mmol/L (136-145)
[2024-06-07] MEDS: cefTRIAXone\\ROCEPHIN 2 GM in Sodium Chloride 0.9% 100 ML IVPB SCH (07:15)
[2024-06-07 08:07] LABS: Anion Gap 12 mmol/L (10-20); BUN (Urea Nitrogen) 13 mg/dL (7.0-18.7); Calc. Creatinine Clearance 156 mL/min (70-130); Calcium 7.9 mg/dL (7.8-10.44); Carbon Dioxide 17 mmol/L (22-29); Chloride 109 mmol/L (98-107); Estimated GFR 131; Glucose 199 mg/dL (70-105); Potassium 3.6 mmol/L (3.5-5.1); Sodium 134 mmol/L (136-145)
[2024-06-07] MEDS: Famotidine 20 MG TAB PO SCH (09:11)
[2024-06-07] MEDS: Enoxaparin 40 MG (0.4 mL) SYRINGE SC SCH (09:12)
[2024-06-07] MEDS: Dextrose 50% Abboject 50 ML SYRINGE SLOW IVP PRN (09:13)
[2024-06-07] MEDS ORDERED: Dextrose 5% in Water 1,000 ML IV PRN (09:40)
[2024-06-07] MEDS ORDERED: Glucagon 1 MG/ML KIT IM PRN (09:40)
[2024-06-07] MEDS ORDERED: Dextrose 50% Abboject 50 ML SYRINGE SLOW IVP PRN (09:52)
[2024-06-07] MEDS: Insulin Glargine 30 UNITS/0.3 ML VIAL SC SCH ×2 (10:33→21:05)
[2024-06-07] MEDS: Ondansetron PF 4 MG/2 ML Vial IVP PRN (12:17)
[2024-06-07] MEDS: Insulin Lispro 100 UNIT/ML 10 ML VIAL SC PRN (12:23)
[2024-06-08 05:48] LABS: Anion Gap 11 mmol/L (10-20); BUN (Urea Nitrogen) 11 mg/dL (7.0-18.7); Calc. Creatinine Clearance 185 mL/min (70-130); Calcium 8.2 mg/dL (7.8-10.44); Carbon Dioxide 21 mmol/L (22-29); Chloride 108 mmol/L (98-107); Estimated GFR 136; Glucose 122 mg/dL (70-105); Potassium 3.3 mmol/L (3.5-5.1); Sodium 137 mmol/L (136-145)
[2024-06-08 08:15] LABS: #Basophils 0.05 10x3/uL (0.0-0.2); %Basophils 0.5 % (0.0-1.0); %Eosinophils 1.3 % (0.0-10.0); %Lymphocytes 28.6 % (21.0-51.0); %Monocytes 5.4 % (0.0-10.0); %Neutrophils 63.9 % (42.0-75.0); Hematocrit 32.8 % (36.0-47.0); Hemoglobin 10.7 g/dL (12.0-16.0); Mean Corpuscular HGB CONC 32.6 g/dL (32.0-36.0); Mean Corpuscular Hemoglobin 30.1 pg (27.0-31.0); Mean Corpuscular Volume 92.1 fL (78.0-98.0); Mean Platelet Volume 10.7 fL (7.4-10.4); Platelet Count 177 10x3/uL (130-400); RBC Distribution Width 12.9 % (11.5-14.5); Red Blood Cell (RBC) Count 3.56 mill/uL (4.20-5.40)
[2024-06-08] MEDS: Potassium Chloride 20 MEQ TAB PO SCH (08:37)
[2024-06-08 13:04] VITALS: TEMP 98.1
[2024-06-08 14:55] VITALS: BP 121/86
== END 2024-06-08 14:55 | disposition home or self-care (01) | DRG 639 ==
LOC: ERS 20:18 → CCU 23:13 → T4-A 06-07 18:03
PROVIDERS: ADMIT Internal Medicine; ATTEND Internal Medicine
DX: E10.10 Type 1 diabetes mellitus with ketoacidosis without coma (principal); F41.9 Anxiety disorder, unspecified
CPT/HCPCS: 36415; 36416; 71045; 74176; 80048; 80053; 81001; 82010; 82805; 83605; 83690; 83735; 84100; 84145; 84484; 84703; 85025; 85379; 87040; 87086; 87428; 93005; 94760; 96374; 96375; A4217; J0696; J1650; J1815; J2405; J3475; J7999